=== PATIENT | male | born 1960 | race African-American/Black ===

== ENCOUNTER 2017-03-20 17:01 | Inpatient (IN) | payer MEDICAID, OTHER ==
[~2017-03-20] VITALS: Ht 172.7 cm; Wt 99.8 kg
[~2017-03-20 17:01] MED LIST: ASPI-991 PO; ATOR10TA PO; Losartan Potassium PO; METO25TA20 PO
--- NOTE | 2017-03-20 17:10 | NUR ---
[id number] C/O SOB, ANXIETY. PATIENT A/OX 3. BREATHING EVEN BUT LABORED. O2 SATURATION 100% ON ROOM AIR. VITALS STABLE. SAFETY AND COMFORT MEASURES IN PLACE. AWAITING MD ORDERS.
[2017-03-20 17:26] LABS: BASOPHILS # (AUTO) 0.1 /CMM (0.0-0.2); BASOPHILS % (AUTO) 0.3 % (0.0-2.0); EOSINOPHILS % (AUTO) 0.1 % (0.0-6.0); HEMATOCRIT 48 % (39-51); HEMOGLOBIN 15.1 g/dL (13.5-17.5); LYMPHOCYTES # (AUTO) 1.1 /CMM (0.8-4.8); LYMPHOCYTES % (AUTO) 5.9 % (20.0-44.0); MEAN CORPUSCULAR HEMOGLOBIN 32 PG (26.0-33.0); MEAN CORPUSCULAR HGB CONC 32 g/dl (31.0-36.0); MEAN CORPUSCULAR VOLUME 102 fL (80-96); MONOCYTES # (AUTO) 1.4 /CMM (0.1-1.30); MONOCYTES % (AUTO) 7.4 % (2.0-12.0); NEUTROPHILS # (AUTO) 16.1 /CMM (1.8-8.9); NEUTROPHILS % (AUTO) 86.3 % (43.0-81.0); PLATELET COUNT (AUTO) 208 /CMM (150-450); WHITE BLOOD COUNT (AUTO) 18.8 K/uL (4.3-11.0)
[2017-03-20] MEDS ORDERED: LORAZEPAM INJ 2 MG/ML VIAL IV ONE (17:30)
[2017-03-20] MEDS ORDERED: ASPIRIN 81 MG TAB.CHEW PO ONE (17:30)
[2017-03-20 17:40] LABS: INR 2.27 (0.87-1.13); PROTHROMBIN TIME 23.6 SECS (9.5-12.7)
[2017-03-20] MEDS ORDERED: ASPIRIN 81 MG TAB.CHEW ONE (17:40)
[2017-03-20 17:45] LABS: TROPONIN I 0.316 ng/mL (0.00-0.056)
[2017-03-20 17:50] LABS: CALCIUM, SERUM 9.4 mg/dL (8.5-10.1); CREATININE 3.4 mg/dL (0.6-1.3); POTASSIUM 6.1 mmol/L (3.5-5.1)
[2017-03-20] MEDS ORDERED: DEXTROSE 50%-WATER 50 ML DISP.SYRIN ONE (18:02)
--- NOTE | 2017-03-20 18:06 | NUR ---
ADMIN D50 VIA IV PER DR. GARCIA, BLOOD SUGAR 31.
--- NOTE | 2017-03-20 18:07 | NUR ---
DR. LOPEZ PAGEMacario.
--- NOTE | 2017-03-20 18:12 | NUR ---
CANCEL ATIVAN PER DR. GARCIA.
--- NOTE | 2017-03-20 18:28 | NUR ---
REPEAT BS, 120. MD INFORMED.
[2017-03-20] MEDS ORDERED: DEXTROSE 50%-WATER 50 ML DISP.SYRIN IVP ONE (18:30)
[2017-03-20] MEDS ORDERED: IV NS 0.9% 1,000 ML BAG IV ONE ×2 (18:30→19:00)
[2017-03-20 18:37] LABS: LYMPHOCYTES % (MANUAL) 6 % (16-48); MONOCYTES % (MANUAL) 8 % (0-11.0); NEUTROPHILS % (MANUAL) 86 (42-76)
[2017-03-20] MEDS ORDERED: SODIUM BICARBONATE SYR 50 MEQ/50 ML DISP.SYRIN ONE (18:42)
--- NOTE | 2017-03-20 18:45 | NUR ---
RECTAL TEMP, 94.0. INFORMED, ORDERED BEAR HUGGER FOR WARMING MEASURES.
[2017-03-20 19:00] LABS: CALCIUM, SERUM 8.6 mg/dL (8.5-10.1); CREATININE 3.8 mg/dL (0.6-1.3); POTASSIUM 5.9 mmol/L (3.5-5.1)
[2017-03-20] MEDS ORDERED: SODIUM BICARBONATE SYR 100 MEQ in IV NS 0.9% 1,000 ML IV ONE (19:00)
[2017-03-20] MEDS ORDERED: SODIUM BICARBONATE SYR 50 MEQ/50 ML DISP.SYRIN IV ONE (19:00)
--- NOTE | 2017-03-20 19:01 | NUR ---
PATIENT TAKEN TO CT VIA STRETCHER.
--- NOTE | 2017-03-20 19:09 | NUR ---
PATIENT RETURNED FROM CT IN STABLE CONDITION.
[2017-03-20 19:18] LABS: BILIRUBIN,TOTAL 4.7 mg/dL (0.2-1.0)
[2017-03-20 19:20] LABS: ALANINE AMINOTRANSFERASE 694 U/L (12-78); ALBUMIN 3.4 g/dL (3.4-5.0); ALKALINE PHOSPHATASE 124 U/L (46-116); ASPARTATE AMINOTRANSFERASE 2167 U/L (15-37); BILIRUBIN,DIRECT 3.5 mg/dL (0.0-0.2); SALICYLATE < 2.0 mg/dL (2.8-20.0); THYROID STIMULATING HORMONE 1.671 uIU/mL (0.358-3.74); TOTAL PROTEIN, SERUM 7.9 g/dL (6.4-8.2)
[2017-03-20 19:21] LABS: ACETAMINOPHEN 0 ug/ml (10-30)
--- NOTE | 2017-03-20 19:38 | NUR ---
ICU 256
--- NOTE | 2017-03-20 19:39 | NUR ---
epic called for admission- Ramesh
--- NOTE | 2017-03-20 19:40 | NUR ---
BED 256
[2017-03-20 19:41] LABS: APPEARANCE,URINE Clear (CLEAR); BILIRUBIN,URINE MODERATE (NEGATIVE); BLOOD, URINE Large Ery/uL (NEGATIVE); COLOR,URINE Yellow (YELLOW); KETONES,URINE Negative (NEGATIVE); LEUKOCYTE ESTERASE ,URINE Negative (NEGATIVE); NITRITE, URINE Negative (NEGATIVE); PH,URINE 5.5 (5.0-8.0); PROTEIN,URINE >=300 mg/dl (NEGATIVE); UGLUCOSE Negative (NEGATIVE)
[2017-03-20 19:50] LABS: CREATINE KINASE MB 24.1 ng/mL (0-3.6)
[2017-03-20 19:51] LABS: BACTERIA,URINE Rare /HPF (None Seen); SQUAMOUS EPITHELIAL CELL,UR Few /HPF (None Seen); WBC,URINE 0-2 /HPF (0-3)
[2017-03-20] MEDS ORDERED: VANCOMYCIN 1 GM in IV D5W 250 ML IV ONE (20:00)
[2017-03-20] MEDS ORDERED: CEFEPIME 1 GM in IV D5W 50 ML IV ONE (20:00)
--- NOTE | 2017-03-20 20:01 | NUR ---
report given to Delma MERINO in charge; will re-page Ramesh Knowles for admission
--- NOTE | 2017-03-20 20:01 | NUR ---
PANEL PAGED 2ND TIME.
[2017-03-20 20:05] LABS: SERUM AMMONIA 75 umol/L (11-32)
[2017-03-20 20:06] LABS: ALCOHOL, BLOOD < 3 mg/dL (0-0)
--- NOTE | 2017-03-20 20:06 | NUR ---
PATIENT TAKEN TO CT SCAN VIA STRETCHER.
--- NOTE | 2017-03-20 20:21 | NUR ---
called rt for abg
--- NOTE | 2017-03-20 20:23 | NUR ---
PATIENT RETURNED FROM CT HEAD IN STABLE CONDITION.
[2017-03-20 20:33] LABS: OSMOLALITY,URINE 480 mOS/kg (340-1090)
--- NOTE | 2017-03-20 21:09 | NUR ---
HALLIE DOLAN AND DR GARCIA AT BEDSIDE. RT CALLED FOR ABG. PT APPEARS IN MODERATE RESPIRATORY DISTRESS AND REPEATEDLY DEMANDING WATER. VSS.
[2017-03-20 21:10] LABS: CALCIUM, SERUM 9.3 mg/dL (8.5-10.1); POTASSIUM 5.8 mmol/L (3.5-5.1)
[2017-03-20 21:15] LABS: ALBUMIN 3.6 g/dL (3.4-5.0); BILIRUBIN,DIRECT 3.6 mg/dL (0.0-0.2); BILIRUBIN,TOTAL 4.9 mg/dL (0.2-1.0); TOTAL PROTEIN, SERUM 8.3 g/dL (6.4-8.2)
[2017-03-20 21:16] LABS: TROPONIN I 0.36 ng/mL (0.00-0.056)
--- NOTE | 2017-03-20 21:18 | NUR ---
PT TRANSPORTED TO ICU IN CRITICAL CONDITION VIA ACLS PROTOCOL. RT TO DRAW ABG IN ICU PER DR GARCIA AND DR DOLAN
[2017-03-20] MEDS ORDERED: IV NS 0.9% 1,000 ML IV PRN (21:34)
[2017-03-20 21:39] VITALS: BP 120/60
--- NOTE | 2017-03-20 21:50 | NUR ---
RESPIRATORY TECHNICIAN - ADMISSION NOTES - PT RECEIVED FROM ER, PT IS HOMELESS, LIVES IN TENTS, BROUGHT IN BY AMBULANCE WITH SOB AND ANXIETY. ADMITTING DX SEPSIS WITH METABOLIC ACIDOSIS. PT HAS HIGH LACTIC OF 20.2 THEN 18.7. PT IS ON 1L NS W 2 AMPS 100 MEQ BICARB AT 250 ML/HR FROM ER. PT IS AOX4, PT IS ON ROOM AIR, ABG SHOWS 02 WNL, PCO2 LOW, BICARB LOW, PH LOW. PT TOX SCREEN IS POSITIVE FOR AMPHETAMINES, CANNABINOIDS. PT IS IN NSR HR 80S, BP WNL. PT IS NOT HAVING STOMACH PAIN, BUT FEELS THE URGENCY TO DEFECATE AND IS BEARING DOWN, RECTUM IS PROTRUDING WHEN HE BEARS DOWN. PT HAS A F/C WITH MINIMAL URINE OUTPUT. SKIN IS INTACT, PT HAS A LEFT AC 18G 8CM LONG CATHETER IV AND A LEFT IJ TLC CENTRAL LINE. WILL CONTINUE TO MONITOR
[2017-03-20 22:00] VITALS: BP 161/95
[2017-03-20 22:01] VITALS: BP 161/95
[2017-03-20 22:07] LABS: INR 2.35 (0.87-1.13); PROTHROMBIN TIME 24.7 SECS (9.5-12.7)
[2017-03-20 22:30] VITALS: BP 140/90
[2017-03-20] MEDS ORDERED: MEROPENEM 1 G VIAL IV ONE (22:37)
[2017-03-20] MEDS ORDERED: ONDANSETRON HCL/PF 4 MG/2 ML VIAL ONE (22:37)
[2017-03-20 22:39] LABS: D-DIMER 10.9 mg/L(FEU (0.17-0.50)
[2017-03-20] MEDS: ONDANSETRON HCL/PF 4 MG/2 ML VIAL IVP PRN (22:40)
[2017-03-20 22:43] LABS: ABG BASE EXCESS -19.7 mmol/L; ABG OXYGEN SATURATION 97.3 % (92.0-98.5); ABG PCO2 13.9 mmHg (35.0-45.0); ABG PH 7.215 (7.350-7.450); ABG PO2 129.7 mmHg (75.0-100.0); AaDO2 3.4 mmHg; COHb 0.2 % (0.5-1.5); MetHb 0.6 % (0.0-1.5); O2Hb 96.5 % (94.0-97.0); SITE, ABG Right Brachial; VENT MODE, BG ROOM AIR
[2017-03-20] MEDS: MEROPENEM 1 G in IV NS 0.9% 100 ML IV SCH (22:43)
[2017-03-20 22:58] LABS: CREATININE 3.7 mg/dL (0.6-1.3); POTASSIUM 5.8 mmol/L (3.5-5.1)
[2017-03-20 23:00] VITALS: BP 149/95
--- NOTE | 2017-03-20 23:00 | NUR ---
DR HALLIE DOLAN AT BEDSIDE TO INSERT LIJ TLC CENTRAL LINE, CENTRAL LINE SUCCESSFULLY INSERTED, DR DOLAN WANTS CVP MONITORING, BUT CVP IS MALFUNCTIONING, WILL MONITOR INTAKE AND OUTPUT CLOSELY
[2017-03-20] MEDS: IV NS 0.9% 1,000 ML IV PRN (23:13)
[2017-03-20 23:30] VITALS: BP 142/99
[2017-03-21] VITALS (45 sets, daily range): BP systolic 123–167; BP diastolic 61–102
[2017-03-21] MEDS: IV NS 0.9% 1,000 ML IV PRN ×3 (00:13→02:34)
[2017-03-21] MEDS ORDERED: Sodium Bicarbonate 100 MEQ in IV D5W 1,000 ML IV ONE (01:00)
[2017-03-21] MEDS ORDERED: Sodium Bicarbonate 100 MEQ in IV D5W 1,000 ML IV PRN (01:00)
[2017-03-21] MEDS ORDERED: DEXTROSE 50%-WATER 50 ML DISP.SYRIN ONE (01:05)
[2017-03-21 01:19] LABS: ABG BASE EXCESS -19.4 mmol/L; ABG OXYGEN SATURATION 96.3 % (92.0-98.5); ABG PCO2 15.1 mmHg (35.0-45.0); ABG PH 7.217 (7.350-7.450); ABG PO2 108.7 mmHg (75.0-100.0); AaDO2 22.9 mmHg; COHb 0.3 % (0.5-1.5); MetHb 0.7 % (0.0-1.5); O2Hb 95.3 % (94.0-97.0); SITE, ABG Left Radial; VENT MODE, BG ROOM AIR
[2017-03-21] MEDS ORDERED: DEXTROSE 50%-WATER 50 ML DISP.SYRIN IVP ONE (01:30)
[2017-03-21] MEDS ORDERED: DEXTROSE 50%-WATER 50 ML DISP.SYRIN IV PRN (01:30)
--- NOTE | 2017-03-21 01:30 | NUR ---
PT FEELS THE NEED TO HAVE A BOWEL MOVEMENT, BUT PT IS ONLY HAVING TINY SOLID PIECES AND GREEN MUCOID BM.
--- NOTE | 2017-03-21 02:00 | NUR ---
PT HAD EPISODE OF EMESIS, LIQUID BROWN. I TRIED TO DO ORAL CARE AND USE YANKAUER TO CLEAN MOUTH, PT HAS VERY STRONG GAG REFLEX AND STARTED VOMITING MORE, APPROX 200-300 ML VOMITED. PT CLEANED, GIVEN FULL BED BATH, ALL LINENS CHANGED
[2017-03-21] MEDS ORDERED: FUROSEMIDE 20 MG/2 ML VIAL IV SCH (04:30)
[2017-03-21] MEDS ORDERED: FUROSEMIDE 20 MG/2 ML VIAL IV ONE (04:30)
[2017-03-21 04:35] LABS: HEMATOCRIT 38 % (39-51); HEMOGLOBIN 12.1 g/dL (13.5-17.5); INR 2.6 (0.87-1.13); LYMPHOCYTES # (AUTO) 1.1 /CMM (0.8-4.8); LYMPHOCYTES % (AUTO) 5.6 % (20.0-44.0); MEAN CORPUSCULAR HEMOGLOBIN 33 PG (26.0-33.0); MEAN CORPUSCULAR HGB CONC 32 g/dl (31.0-36.0); MEAN CORPUSCULAR VOLUME 101 fL (80-96); MONOCYTES # (AUTO) 1.7 /CMM (0.1-1.30); MONOCYTES % (AUTO) 8.8 % (2.0-12.0); NEUTROPHILS # (AUTO) 16.9 /CMM (1.8-8.9); NEUTROPHILS % (AUTO) 85.6 % (43.0-81.0); PLATELET COUNT (AUTO) 154 /CMM (150-450); PROTHROMBIN TIME 27.3 SECS (9.5-12.7); RDW COEFFICIENT OF VARIATION 13.9 (11.5-15.0); RED BLOOD CELL COUNT(AUTO) 3.71 MIL/uL (4.5-6.0); WHITE BLOOD COUNT (AUTO) 19.8 K/uL (4.3-11.0)
--- NOTE | 2017-03-21 04:37 | NUR ---
PT HAVING EPISODES OF WRETCHING, DR DOLAN ORDER TO PLACE AN NGT, BUT PT IS AWAKE ALERT ORIENTED X4 AND SAYS "NO, I DONT WANT ANYTHING IN MY NOSE", AWARE, PT IN NO ACUTE DISTRESS, WILL CONTINUE TO MONITOR
[2017-03-21 04:41] LABS: RETICULOCYTE COUNT 4.3 % (0.6-2.5)
[2017-03-21] MEDS ORDERED: BISACODYL SUPP (10 MG) 10 MG/SUPP.RECT SUPP.RECT RC ONE ×2 (04:41→09:00)
[2017-03-21] MEDS ORDERED: MEROPENEM 1 G VIAL IV ONE (04:42)
[2017-03-21] MEDS ORDERED: FUROSEMIDE 20 MG/2 ML VIAL ONE (04:42)
[2017-03-21] MEDS: MEROPENEM 1 G in IV NS 0.9% 100 ML IV SCH (04:44)
[2017-03-21 04:45] LABS: ABG BASE EXCESS -16.6 mmol/L; ABG PCO2 18.7 mmHg (35.0-45.0); ABG PH 7.258 (7.350-7.450); ABG PO2 150.8 mmHg (75.0-100.0); AaDO2 69.8 mmHg; COHb 0.3 % (0.5-1.5); MetHb 0.8 % (0.0-1.5); O2Hb 96.9 % (94.0-97.0); SITE, ABG Left Radial; VENT MODE, BG NASAL CANNULA
[2017-03-21 04:47] LABS: ALBUMIN 2.9 g/dL (3.4-5.0); BILIRUBIN,TOTAL 4.4 mg/dL (0.2-1.0); CALCIUM, SERUM 6.9 mg/dL (8.5-10.1); CREATININE 3.4 mg/dL (0.6-1.3); MAGNESIUM 1.7 mg/dL (1.8-2.4); PHOSPHORUS 7.5 mg/dL (2.5-4.9); POTASSIUM 5.4 mmol/L (3.5-5.1); TOTAL PROTEIN, SERUM 6.9 g/dL (6.4-8.2)
[2017-03-21 04:49] LABS: THYROID STIMULATING HORMONE 1.742 uIU/mL (0.358-3.74)
[2017-03-21] MEDS ORDERED: IV NS 0.9% 250 ML IV ONE (05:00)
--- NOTE | 2017-03-21 05:20 | NUR ---
PT AGITATED, COMPLAINING OF DIFFICULTY BREATHING, PT HAS HAD VERY MINIMAL URINE OUTPUT, AND GOTTEN A LARGE AMOUNT OF FLUID. DR HALLIE DOLAN NOTIFIED, NEW ORDERS GIVEN, WILL GIVE PT LASIX 20 MG
[2017-03-21] MEDS ORDERED: FEE PK DOSING 1 MIN EA MC ONE (07:41)
[2017-03-21 07:57] LABS: CALCIUM, SERUM 6.9 mg/dL (8.5-10.1); CREATININE 3.5 mg/dL (0.6-1.3); POTASSIUM 5.5 mmol/L (3.5-5.1)
[2017-03-21] MEDS ORDERED: HYDROMORPHONE INJ 2 MG/ML DISP.SYRIN IV PRN (08:00)
--- NOTE | 2017-03-21 08:00 | NUR ---
ICU/RN INITIAL NOTES,AM RECEIVED REPORT FROM NIGHT NURSE. PT ALERT, AWAKE, FOLLOWS COMMANDS. PT COMPLAINING OF ABDOMINAL CRAMPING AND GENERALIZED PAIN. PT ON NASAL CANULA, LABORED RESPIRATIONS NOTED, YET MAINTAINING 02 SAT >95%. PT SINUS ON TELE. ONE UNIT FFP TRANSFUSED OVERNIGHT, ONE UNIT PENDING TO BE GIVEN, WILL ADMIN SOON IT IS AVAILABLE. PIV AND LEFT IG TLC INTACT AND PATENT, NO S/S OF INFECTION OR INFILTRATION NOTED. IV FLUIDS INFUSING ORDERED. ALL NEEDS WILL BE ATTENDED TO, SAFETY MEASURES TAKEN, BED IN LOW POSITION, SIDE RIALS UP, CALL LIGHT WITHIN REACH.
[2017-03-21] MEDS: IV D5/ 0.9% NACL 1,000 ML IV PRN ×3 (08:13→20:16)
[2017-03-21] MEDS: PANTOPRAZOLE 40 MG VIAL IV SCH (08:13)
--- NOTE | 2017-03-21 10:15 | NUR ---
ICU/RN: FFP STARTED, TOLERATING WELL, NO ADVERSE REACTION NOTED. VSS. CONSENT IN CHART. WILL CONTINUE TO MONITOR AND ASSESS
--- NOTE | 2017-03-21 10:43 | NUR ---
Social service consult requested by Dr. Knowles for homelessness and drug use. Pt. is a 56 year old -Prydeinig female who was admitted to [facility] for renal failure. SAADIA and rn case manager Shelley Whittaker met with pt. bedside. Pt. is alert and oriented x 3. Pt. appears lethargic. SW is familiar with pt. from a previous admission in 2016. Pt. states he is homeless and no longer resides at a sober living. SW offered pt. longterm placement upon discharge, however pt. declined stating he needs to get his belongings that are located at [facility] in [place] upon discharge. SW informed pt. she will provide him with longterm resources along with bus tokens to get to his belongings. Pt. agreed. Pt. denies suicidal/homicidal ideations and visual/auditory hallucinations at this time. Pt. has a history of psychiatric hospitalization in the past, approximately a year ago but does not remember where he was hospitalized. Pt. denies using drugs, however his toxicology shows positive for methamphetamines, cocaine and marijuana. Pt. continues to deny using drugs when informed about his toxicology results. Pt. states he smokes marijuana and cigarettes only. Pt. does drink alcohol and his alcohol of choice is vodka. SW to inform weekend rn case manager Radha to provide pt. with bus tokens, if pt. is discharged over the weekend. No other social service needs are requested at this time. SW is available, if needed.
[2017-03-21 11:30] LABS: CALCIUM, SERUM 6.7 mg/dL (8.5-10.1); CREATININE 3.4 mg/dL (0.6-1.3); POTASSIUM 5.2 mmol/L (3.5-5.1)
[2017-03-21] MEDS: METRONIDAZOLE 500MG/ NS 100ML 500 MG in PREMIX 1 EA IV SCH ×2 (13:54→17:27)
[2017-03-21] MEDS: Calcium Gluconate 1GM/10ML 9.3 MEQ in IV D5W 250 ML IV SCH ×3 (15:10→20:10)
--- NOTE | 2017-03-21 15:47 | NUR ---
ICU/RN: PT SEEN AND ASSESSED BY VARNISHING UNIT OPERATOR. WILL CONTINUE TO FOLLOWUP.
[2017-03-21] MEDS: MEROPENEM 500 MG in IV NS 0.9% 50 ML IV SCH (16:08)
[2017-03-21 16:11] LABS: CALCIUM, SERUM 7.2 mg/dL (8.5-10.1); CREATININE 3.6 mg/dL (0.6-1.3); POTASSIUM 4.7 mmol/L (3.5-5.1)
[2017-03-21 16:56] LABS: APPEARANCE,URINE CLOUDY (CLEAR); BILIRUBIN,URINE NEGATIVE (NEGATIVE); BLOOD, URINE 3+ Ery/uL (NEGATIVE); COLOR,URINE YELLOW (YELLOW); KETONES,URINE TRACE (NEGATIVE); LEUKOCYTE ESTERASE ,URINE NEGATIVE (NEGATIVE); NITRITE, URINE NEGATIVE (NEGATIVE); PROTEIN,URINE 2+ mg/dl (NEGATIVE); UGLUCOSE NEGATIVE (NEGATIVE)
[2017-03-21 16:58] LABS: BACTERIA,URINE Moderate /HPF (None Seen); RBC,URINE TOO NUMEROUS TO COUN /HPF (0-2); SQUAMOUS EPITHELIAL CELL,UR Moderate /HPF (None Seen)
[2017-03-21 17:37] LABS: EOSINOPHIL,URINE None Seen
[2017-03-21 18:23] LABS: CREATININE, URINE 59.1 MG/DL (30.0-125.0)
[2017-03-21] MEDS: VANCOMYCIN 0.75 GM in IV D5W 250 ML IV SCH (18:39)
--- NOTE | 2017-03-21 19:40 | NUR ---
ICU/RN ENDING NOTES,AM REPORT ENDORSED TO NIGHT NURSE FOR CONTINUATION OF CARE. ALL NEEDS MET. PT ON NASAL CANULA, NO DISTRESS. VSS. ONE UNIT FFP TRANSFUSED. URINE OUTPUT NOTED, MINDA. SAFETY MEASURES TAKEN, BED IN LOW POSITION, SIDE RAILS UP, CALL LIGHT WITHIN REACH.
--- NOTE | 2017-03-21 20:00 | NUR ---
MARKETING CONTENT COORDINATOR: PT'S NASAL CANNULA WAS OFF WT O2 SAT AT 94%. PLACED BACK ON 3L AND WT 02 SAT AT 96% AND ABOVE. PT APPEARS DROWSY AND FATIGUED. ABLE TO FOLLOW COMMANDS, MAKE NEEDS KNOWN WT CONFUSION. NO C/O PAIN OR EVIDENCE OF DISCOMFORT. SR ON FIREFIGHTER TYPE ONE. AFEBRILE WT BP WNL. LIJ TLC INFUSING IVF AND CALCIUM GLUCONATE WT NO S/S OF COMPLICATIONS. F/C PATENT AND INTACT DRAINING TEA COLORED URINE TO GRAVITY. HOB ELEVATED AT 35 DEGREES. SAFETY PRECAUTION NOTED. WILL CONTINUE TO MONITOR.
[2017-03-21 20:31] LABS: CALCIUM, SERUM 7.7 mg/dL (8.5-10.1); CREATININE 3.7 mg/dL (0.6-1.3); POTASSIUM 4.3 mmol/L (3.5-5.1)
--- NOTE | 2017-03-21 22:35 | NUR ---
CENTRAL PROCESSING TECHNICIAN: LISA DONE WT RESULT OF 125. PT REMAINS DROWSY. ABLE TO WAKE UP, VERBALLY RESPONSIVE, ABLE TO FOLLOW COMMANDS WT CONFUSION. NO ACUTE DISTRESS. WILL CONTINUE TO MONITOR.
[2017-03-22] VITALS (29 sets, daily range): BP systolic 130–154; BP diastolic 84–111
--- NOTE | 2017-03-22 02:00 | NUR ---
SPREADER OPERATOR: NO BRYSON SINCE BEGINNING OF SHIFT. REMAINED LETHARGIC AND DROWSY. ABLE TO WAKE UP AND VERBALLY RESPONSIVE. ICE CHIPS GIVEN REQUESTED WT NO S/S OF ASPIRATION. NO C/O ABDOMINAL PAIN. BOWEL SOUNDS PRESENT IN FOUR QUADRANTS WT PRESENCE OF GAS. WILL CONTINUE TO MONITOR.
[2017-03-22] MEDS: IV D5/ 0.9% NACL 1,000 ML IV PRN ×2 (03:42→10:34)
[2017-03-22] MEDS ORDERED: IV NS 0.9% 500 ML BAG IV PRN (04:00)
[2017-03-22] MEDS ORDERED: IV NS 0.9% 500 ML BAG IV ONE (04:00)
[2017-03-22] MEDS: MEROPENEM 500 MG in IV NS 0.9% 50 ML IV SCH ×2 (04:36→16:09)
[2017-03-22 04:49] LABS: BASOPHILS # (AUTO) 0.2 /CMM (0.0-0.2); BASOPHILS % (AUTO) 1.7 % (0.0-2.0); EOSINOPHILS % (AUTO) 0.1 % (0.0-6.0); HEMATOCRIT 37 % (39-51); HEMOGLOBIN 11.9 g/dL (13.5-17.5); LYMPHOCYTES % (AUTO) 6.9 % (20.0-44.0); MEAN CORPUSCULAR HEMOGLOBIN 32 PG (26.0-33.0); MEAN CORPUSCULAR HGB CONC 33 g/dl (31.0-36.0); MEAN CORPUSCULAR VOLUME 99 fL (80-96); MONOCYTES # (AUTO) 1.6 /CMM (0.1-1.30); MONOCYTES % (AUTO) 11.2 % (2.0-12.0); NEUTROPHILS # (AUTO) 11.2 /CMM (1.8-8.9); NEUTROPHILS % (AUTO) 80.1 % (43.0-81.0); PLATELET COUNT (AUTO) 120 /CMM (150-450); RDW COEFFICIENT OF VARIATION 13.4 (11.5-15.0); RED BLOOD CELL COUNT(AUTO) 3.69 MIL/uL (4.5-6.0)
[2017-03-22 04:59] LABS: APPEARANCE,URINE CLEAR (CLEAR); BILIRUBIN,URINE NEGATIVE (NEGATIVE); BLOOD, URINE 2+ Ery/uL (NEGATIVE); KETONES,URINE NEGATIVE (NEGATIVE); LEUKOCYTE ESTERASE ,URINE NEGATIVE (NEGATIVE); NITRITE, URINE NEGATIVE (NEGATIVE); PROTEIN,URINE 2+ mg/dl (NEGATIVE); UGLUCOSE NEGATIVE (NEGATIVE)
[2017-03-22 05:00] LABS: COLOR,URINE DARK YELLOW (YELLOW)
[2017-03-22 05:05] LABS: ALBUMIN 2.8 g/dL (3.4-5.0); BILIRUBIN,TOTAL 2.6 mg/dL (0.2-1.0); CALCIUM, SERUM 7.7 mg/dL (8.5-10.1); CREATININE 3.5 mg/dL (0.6-1.3); MAGNESIUM 1.8 mg/dL (1.8-2.4); PHOSPHORUS 4.2 mg/dL (2.5-4.9); POTASSIUM 4.1 mmol/L (3.5-5.1); TOTAL PROTEIN, SERUM 6.8 g/dL (6.4-8.2)
[2017-03-22 05:05] LABS: BACTERIA,URINE Rare /HPF (None Seen); SQUAMOUS EPITHELIAL CELL,UR Few /HPF (None Seen)
[2017-03-22 05:16] LABS: EOSINOPHIL,URINE None Seen
[2017-03-22 05:34] LABS: CREATINE KINASE MB 14.6 ng/mL (0-3.6)
--- NOTE | 2017-03-22 06:20 | NUR ---
GOLF BALL COVER TREATER: PT VERBALIZING THAT HE'S HUNGRY AND WANTS TO EAT BREAKFAST. PT TEACHING DONE THAT HE REMAINS NPO STATUS UNTIL FURTHER EVALUATION BY MD AND VERBALIZED UNDERSTANDING. GIVEN SMALL AMT. OF ICE CHIPS. ON R/A WT NO ACUTE DISTRESS. NO C/O PAIN OR ABDOMINAL DISCOMFORT. VS WITHIN HIS BASELINE. SAFETY PRECAUTION NOTED. CALL LIGHT KEPT WITHIN EASY REACH.
--- NOTE | 2017-03-22 07:30 | NUR ---
ICU/RN: Pt received in bed, alert to self and place, lethargic. Follows commands. C/O thirst and hunger, oral care rendered, provided with ice chips and educated on POC and NPO status. Needs reinforcement. L IJ TLC patent, good blood return, flushed. Unable to obtain CVP reading despite repeated calibration per noc shift. Will F/U with primary regarding use. FC draining tea-colored urine well to gravity. Safety measures in place, will cont to monitor pt.
[2017-03-22] MEDS: PANTOPRAZOLE 40 MG VIAL IV SCH (08:01)
[2017-03-22 08:08] LABS: IMMUNOGLOBULIN A, SERUM 269 mg/dL (90-386); IMMUNOGLOBULIN G, SERUM 2026 mg/dL (700-1600); IMMUNOGLOBULIN M, SERUM 177 mg/dL (20-172)
[2017-03-22 08:36] LABS: CALCIUM, SERUM 7.4 mg/dL (8.5-10.1); CREATININE 3.2 mg/dL (0.6-1.3); MAGNESIUM 1.7 mg/dL (1.8-2.4); PHOSPHORUS 4.1 mg/dL (2.5-4.9); POTASSIUM 4.1 mmol/L (3.5-5.1)
[2017-03-22 08:39] LABS: CREATININE, URINE 85.9 MG/DL (30.0-125.0)
[2017-03-22 08:45] LABS: URINE TOTAL PROTEIN 113.7 mg/dL (0-11.9)
[2017-03-22 09:43] LABS: ABG BASE EXCESS -4.7 mmol/L; ABG OXYGEN SATURATION 93.6 % (92.0-98.5); ABG PO2 74.9 mmHg (75.0-100.0); AaDO2 43.7 mmHg; COHb 0.7 % (0.5-1.5); SITE, ABG Right Radial; VENT MODE, BG ROOM AIR
[2017-03-22 12:17] LABS: CALCIUM, SERUM 7.4 mg/dL (8.5-10.1); CREATININE 3.2 mg/dL (0.6-1.3)
--- NOTE | 2017-03-22 12:23 | NUR ---
ICU/RN: DR DWYER AT THE BEDSIDE, UPDATED ON PT STATUS, DISCUSSED VOLUME STATUS AND IVF INTAKE. PT TACHYPNEIC AND STATES "IM HUNGRY." AWAITING MD ORDERS.
[2017-03-22] MEDS: Magnesium 1GM/D5W 100ML PREMIX PIGGYBACK IV SCH ×2 (12:50→13:53)
--- NOTE | 2017-03-22 15:00 | NUR ---
ICU/RN: DISCUSSED PT STATUS WITH HILDA PHAM NP. INFORMED OF RENAL, RESP AND GI STATUS. PT DENIES ABD PAIN. NEPHRO WISHES TO HOLD OFF IV CONTRAST FOR CT ABD. PER JIG BORING MACHINE SET UP OPERATOR, CONT TO MONITOR PT IN ICU, DC CVP MONITORING, ENCOURAGE PO INTAKE.
--- NOTE | 2017-03-22 15:30 | NUR ---
ICU/RN: BED BATH, HYGIENIC CARE RENDERED. TOLERATED WELL. NOTED WITH SMEAR OF GREENISH MUCOID STOOL. UNABLE TO COLLECT SAMPLE DUE TO SMALL AMOUNT. CVP MONITORING DC'D PER ORDER. EDUCATED PT. TOLERATED CLEAR LIQ DIET. WILL CONT TO MONITOR PT
[2017-03-22] MEDS: Z GUARD REMEDY 2 OZ OINT TP PRN (16:09)
[2017-03-22] MEDS: VANCOMYCIN 0.75 GM in IV D5W 250 ML IV SCH (17:20)
--- NOTE | 2017-03-22 18:30 | NUR ---
ICU/RN: TOLERATED DINNER, ATE 75%, DENIES ABD PAIN, N/V. IVF INFUSING WELL THROUGH L IJ TLC. A&OX3, LETHARGIC. BREATHING EVEN AND UNLABORED.
--- NOTE | 2017-03-22 19:10 | NUR ---
ICU/RN: PT IN STABLE CONDITION, NO DISTRESS NOTED, BREATHING EVEN AND UNLABORED ON RA. IVF INFUSING WELL THROUGH L IJ TLC. FC DRAINING WELL TO GRAVITY. LETHARGIC, FOLLOWS COMMANDS. CARE ENDORSED TO PM RN FOR BRYSON.
--- NOTE | 2017-03-22 19:35 | NUR ---
TELESALES TEAM LEADER RCD PT W/DX SEPSIS; PT IS ALERT ABLE TO MAKE NEEDS KNOWN. NSR ON MONITOR. ON ROOM AIR WITH CLEAR LUNG SOUNDS. LIJT LC W/D5NS @ 75 ML/HR.
[2017-03-23] VITALS (27 sets, daily range): BP systolic 125–159; BP diastolic 55–123
--- NOTE | 2017-03-23 04:00 | NUR ---
BRAZER RESISTANCE ORAL CARE RENDERED COMPLETE BED BATH GIVEN. PT TOLERATED WELL. PY ASKING FOR FOOD HOWEVER PT REMAINS ON CLEAR LIQUID DIET.
[2017-03-23 04:45] LABS: BASOPHILS % (AUTO) 0.1 % (0.0-2.0); EOSINOPHILS % (AUTO) 0.3 % (0.0-6.0); HEMATOCRIT 39 % (39-51); HEMOGLOBIN 12.7 g/dL (13.5-17.5); LYMPHOCYTES # (AUTO) 0.9 /CMM (0.8-4.8); LYMPHOCYTES % (AUTO) 7.6 % (20.0-44.0); MEAN CORPUSCULAR HEMOGLOBIN 33 PG (26.0-33.0); MEAN CORPUSCULAR HGB CONC 33 g/dl (31.0-36.0); MEAN CORPUSCULAR VOLUME 100 fL (80-96); MONOCYTES # (AUTO) 1.4 /CMM (0.1-1.30); MONOCYTES % (AUTO) 11.6 % (2.0-12.0); NEUTROPHILS # (AUTO) 9.9 /CMM (1.8-8.9); NEUTROPHILS % (AUTO) 80.4 % (43.0-81.0); PLATELET COUNT (AUTO) 126 /CMM (150-450); RDW COEFFICIENT OF VARIATION 13.7 (11.5-15.0); RED BLOOD CELL COUNT(AUTO) 3.85 MIL/uL (4.5-6.0); WHITE BLOOD COUNT (AUTO) 12.4 K/uL (4.3-11.0)
[2017-03-23 05:04] LABS: CALCIUM, SERUM 7.8 mg/dL (8.5-10.1); CREATININE 2.6 mg/dL (0.6-1.3); PHOSPHORUS 3.4 mg/dL (2.5-4.9)
[2017-03-23] MEDS: MEROPENEM 500 MG in IV NS 0.9% 50 ML IV SCH (05:25)
--- NOTE | 2017-03-23 06:47 | NUR ---
WILBER DURAND . Addendum: 03/23/17 at 0648 by JUANJO BEATTY RN 03/22/17 1950
--- NOTE | 2017-03-23 07:10 | NUR ---
FARM OPERATOR INITIAL NOTES: REC'D PT ASLEEP ON BED, EASILY AWAKEN, A/O X2. ON ROOM AIR, DENIES SOB, TACHYPNEIC AT TIMES RR 24. ON TELEMONITOR, SR W/ HR 86 BPM. HAS 2 IV ACCESS: L IJ TLC, PL W/ D5NS X 75 CC/HR INFUSING WELL AND L AC G18, SL, FLUSHING WELL - BOT PATENT & INTACT W/ NO S/SX OF INFECTION/INFILTRATION NOTED. HAS FC DRAINING TO ADEQUATE URINE OUTPUT. NOTED GENERALIZED WEAKNESS, VERBALIZING THAT HE IS HUNGRY. PROVIDED COMFORT & SAFETY MEASURES. BED KEPT LOW & IN LOCKED POS. CALL LIGHT PLACED W/IN REACH. WILL CONTINUE TO MONITOR AND ASSESS PT'S NEEDS.
[2017-03-23] MEDS: PANTOPRAZOLE 40 MG VIAL IV SCH (08:03)
--- NOTE | 2017-03-23 10:20 | NUR ---
RN NOTES: HILDA REFRACTORY SPECIALIST MADE AWARE THAT PT VERBALIZING HUNGER AND WANTED TO ADVANCE HIS CURRENT DIET. PER HILDA SHE WILL MAKE HER ROUNDS TODAY. ORDERED PT EVAL PER GONZALEZ.
--- NOTE | 2017-03-23 11:39 | NUR ---
RN NOTES: PT SEEN & EXAMINED BY GONZALEZ STEVENS W/ ORDERS MADE & CARRIED OUT. ASA TO DC DUE TO HIGH PT/INR.
[2017-03-23 12:08] LABS: CALCIUM, SERUM 7.8 mg/dL (8.5-10.1); CREATININE 2.4 mg/dL (0.6-1.3); POTASSIUM 3.8 mmol/L (3.5-5.1)
[2017-03-23] MEDS: ATORVASTATIN 10 MG TABLET PO SCH (12:49)
[2017-03-23] MEDS: LOSARTAN POTASSIUM 50 MG TABLET PO SCH (12:49)
[2017-03-23] MEDS: AMLODIPINE BESYLATE 5 MG TABLET PO SCH (12:50)
[2017-03-23] MEDS: Z GUARD REMEDY 2 OZ OINT TP PRN (12:50)
[2017-03-23] MEDS: IV D5/ 0.9% NACL 1,000 ML IV PRN ×2 (14:09)
--- NOTE | 2017-03-23 16:00 | NUR ---
RN NOTES: T 100.2'F. HILDA MADE AWARE W/ ORDERS TO START TYLENOL 650 MG PO Q6H FOR FEVER. DIAL MARKER JUDEAN ALSO AWARE THAT PT TEMP TRENDING UP. BLOOD CULTURES ALREADY ORDERED.
[2017-03-23] MEDS: MEROPENEM 1 G in IV NS 0.9% 100 ML IV SCH (16:20)
[2017-03-23] MEDS: METOPROLOL TARTRATE 25 MG TABLET PO SCH (16:20)
[2017-03-23] MEDS: ACETAMINOPHEN 325 MG TABLET PO PRN (16:22)
[2017-03-23] MEDS: VANCOMYCIN 0.75 GM in IV D5W 250 ML IV SCH (18:07)
--- NOTE | 2017-03-23 18:16 | NUR ---
RN NOTES: ERICH STEVENS NP OKAY TO SHIFT IVF TO NS X 75 CC/HR.
[2017-03-23] MEDS ORDERED: IV NS 0.9% 1,000 ML IV PRN (18:30)
[2017-03-23] MEDS ORDERED: IV NS 0.9% 1,000 ML BAG IV PRN (18:30)
--- NOTE | 2017-03-23 18:40 | NUR ---
RN NOTES PATIENT TRANSFER FROM ICU TO ROOM 311 BED 2 TELE ON TELE MONITOR ON, SR/HR-80, PATIENT 56Y/OLD, REDIRECTABLE, PATIENT ON IV LEFT IJ CENTRAL LINE WITH TREE LUMEN RUNNING NS 75 ML/HE, F/C DRAIN LIGHT YELLOW OUTPUT, SKIN INTACT, V/S TAKEN BP - 159/ 96, P-93, O2-98 ROOM AIR, T-98.9, R-20. PATIENT REFUSED PAIN AT THIS TIME. NEEDS ATTENDED AND ANTICIPATED. CALL LIGHT WITHIN TO REACH, SAFETY PRECAUTION MAINTAINED ALL THE TIME. CONTINUED MONITORING.
--- NOTE | 2017-03-23 18:41 | NUR ---
WATERPROOF COATING MACHINE TENDER CLOSING NOTES: PT LATEST TEMP 99.9'F. PT TOLERATED ROOM AIR, SATING 100%, STILL TACHYPNEIC AT TIMES. ON TELEMONITOR, STILL SR. 2 IV ACCESS: L IJ TLC, PL W/ NS X 75 CC/HR INFUSING WELL AND L AC G18, SL, BOTH KEPT PATENT & INTACT W/ NO S/SX OF INFECTION/INFILTRATION NOTED. FC KEPT PATENT & INTACT. DIET TOLERATED WELL. KEPT WELL RESTED. NEEDS ATTENDED. BED KEPT LOW & IN LOCKED POS. CALL LIGHT PLACED W/IN REACH. REPORT GIVEN TO DUANE FOR BRYSON. FOR TRANSFER TO ROOM 311 ORDERED. PT TRANSFERRED VIA BED VIA ACLS PROTOCOL ACCOMPANIED BY 2 WATERPROOF COATING MACHINE TENDER. PT LEFT ICU IN STABLE CONDITION, NOT IN ANY DISTRESS.
--- NOTE | 2017-03-23 19:15 | NUR ---
RN NOTES/ PATIENT STABLE AT THIS TIME NO ACUTE , NO RESPIRATORY DISTRESS, IV RUNNING LEFT IJ AREA INTACT, ASSIST TURN AND REPOSITION Q 2 HR, DVT PUMP ON, CALL LIGHT WITHIN TO REACH, SAFETY PRECAUTION MAINTAINED ALL THE TIME. ENDORSED ONCOMING NURSE FOR CONTINUATION OF CARE.
--- NOTE | 2017-03-23 19:40 | NUR ---
RN NOTE; RECEIVED PT IN BED AWAKE AND ALERT, OX1. BREATHING EVENLY. NO SOB./ NAD. DENIED ANY PAIN OR DISCOMFORT. NO CP. SR ON TELE MONITOR, IV SITES INTACT AND PATENT. NEEDS ATTENDED . CALL LIGHT WITHIN REACH, WILL CONT TO MONITOR .
[2017-03-24] VITALS (7 sets, daily range): BP systolic 115–156; BP diastolic 78–100
[2017-03-24] MEDS: MEROPENEM 1 G in IV NS 0.9% 100 ML IV SCH (04:55)
--- NOTE | 2017-03-24 06:12 | NUR ---
RN NOTE; PT IN BED AWAKE AND RESPONSIVE. NO ACUTE EVENT DURING THE NIGHT. ON ONGOING IVF HYDRATION AND IV ABX. AFEBRILE. NO C/O PAIN OR DISCOMFORT. HEAR MONITOR IN PLACE READING SR. F/C IN PLACE DRAINING CLEAR YELLOW . NEEDS ATTENDED. CALL LIGHT WITHIN REACH. WILL CONT TO MONITOR AND WILL ENDORSE TO AM SHIFT FOR BRYSON.
--- NOTE | 2017-03-24 07:15 | NUR ---
RN OPENING NOTES RECEIVED PT. IN BED A&OX3. BREATHING UNLABORED AND EVENLY ON ROOM AIR. NO S/S OF ACUTE DISTRESS. IV FLUIDS RUNNING AT LEFT INTRAJUGULAR CENTRAL LINE SITE. BED IS IN LOWEST, AND LOCKED POSITION. 2 SIDE RAILS UP, AND INSTRUCTED PT. TO USE CALL LIGHT FOR ASSISTANCE. ALL NEEDS ATTENDED TO. WILL CONTINUE TO ASSESS AND MONITOR.
--- NOTE | 2017-03-24 07:16 | NUR ---
RN NOTES PT. IS ON TELE MONITOR READING SINUS RHYTHM AT 87 BPM.
[2017-03-24 07:24] LABS: BASOPHILS # (AUTO) 0.1 /CMM (0.0-0.2); BASOPHILS % (AUTO) 0.8 % (0.0-2.0); EOSINOPHILS # (AUTO) 0.1 /CMM (0.0-0.7); EOSINOPHILS % (AUTO) 1.1 % (0.0-6.0); HEMATOCRIT 39 % (39-51); LYMPHOCYTES # (AUTO) 1.8 /CMM (0.8-4.8); LYMPHOCYTES % (AUTO) 14.3 % (20.0-44.0); MEAN CORPUSCULAR HEMOGLOBIN 33 PG (26.0-33.0); MEAN CORPUSCULAR HGB CONC 33 g/dl (31.0-36.0); MEAN CORPUSCULAR VOLUME 100 fL (80-96); MONOCYTES # (AUTO) 1.9 /CMM (0.1-1.30); MONOCYTES % (AUTO) 14.7 % (2.0-12.0); NEUTROPHILS # (AUTO) 8.8 /CMM (1.8-8.9); NEUTROPHILS % (AUTO) 69.1 % (43.0-81.0); PLATELET COUNT (AUTO) 129 /CMM (150-450); RED BLOOD CELL COUNT(AUTO) 3.96 MIL/uL (4.5-6.0); WHITE BLOOD COUNT (AUTO) 12.8 K/uL (4.3-11.0)
--- NOTE | 2017-03-24 07:24 | NUR ---
HERNANDEZ CATHETER CLEAR AND YELLOW URINE, 50 CC OUTPUT.
[2017-03-24 07:35] LABS: CREATININE 1.9 mg/dL (0.6-1.3); MAGNESIUM 1.9 mg/dL (1.8-2.4); PHOSPHORUS 2.5 mg/dL (2.5-4.9); POTASSIUM 3.9 mmol/L (3.5-5.1)
[2017-03-24] MEDS ORDERED: ASPIRIN EC 81 MG TABLET.DR PO SCH (09:00)
[2017-03-24] MEDS: PANTOPRAZOLE 40 MG VIAL IV SCH (09:35)
[2017-03-24] MEDS: AMLODIPINE BESYLATE 5 MG TABLET PO SCH (09:36)
[2017-03-24] MEDS: ATORVASTATIN 10 MG TABLET PO SCH (09:37)
[2017-03-24] MEDS: METOPROLOL TARTRATE 25 MG TABLET PO SCH ×2 (09:37→17:16)
[2017-03-24] MEDS: LOSARTAN POTASSIUM 50 MG TABLET PO SCH (09:37)
--- NOTE | 2017-03-24 10:09 | NUR ---
PER GUSSET EDGER OKAY TO DISCONTINUE L I J CENTRAL LINE.
--- NOTE | 2017-03-24 10:19 | NUR ---
PER CLOTH REELER JEANNIE TO DC HERNANDEZ CATHETER.
[2017-03-24] MEDS ORDERED: LACTULOSE 10 G/15 ML UDC (PYXIS) PO PRN (10:30)
--- NOTE | 2017-03-24 10:40 | NUR ---
CENTRAL CATHETER WAS REMOVED FROM L I J WITHOUT COMPLICATIONS.
--- NOTE | 2017-03-24 10:45 | NUR ---
HERNANDEZ CATHETER REMOVED WITHOUT COMPLICATIONS. URINE WAS CLEAR AND YELLOW 250 CC OUTPUT TOTAL.
[2017-03-24 11:14] LABS: *SPE ALBUMIN 3.1 g/dL (2.9-4.4); *SPE ALPHA-1-GLOBULIN 0.2 g/dL (0.0-0.4); *SPE ALPHA-2-GLOBULIN 0.5 g/dL (0.4-1.0); *SPE BETA GLOBULIN 0.7 g/dL (0.7-1.3); *SPE GLOBULIN, TOTAL 3.2 g/dL (2.2-3.9); *SPE M-SPIKE Not Observed g/dL (Not Observed); *SPEGAMMA GLOBULIN 1.8 g/dL (0.4-1.8)
[2017-03-24 11:14] LABS: *ANCANTIMYELOPEROXIDASE (MPO) <9.0 U/mL (0.0-9.0); *ANCANTIPROTEINASE 3 (PR-3) AB <3.5 U/mL (0.0-3.5)
--- NOTE | 2017-03-24 11:17 | NUR ---
SAADIA met with pt. again to discuss discharge plan. Pt. states he will contact his brother Ruben Chen to inquire where he is going to go. Pt. declined usp placement again. SW to follow up with pt. again once pt. has spoken to his brother.
[2017-03-24 11:23] LABS: BAND % (MANUAL) 2 % (0.0-5.0); EOSINOPHILS % (MANUAL) 2 % (0-4); LYMPHOCYTES % (MANUAL) 14 % (16-48); MONOCYTES % (MANUAL) 11 % (0-11.0); NEUTROPHILS % (MANUAL) 71 (42-76)
[2017-03-24] MEDS: ALBUTEROL FS 2.5 MG/0.5 ML VIAL.NEB NEB SCH ×3 (11:30→19:38)
[2017-03-24] MEDS: IPRATROPIUM NEB FS 0.5 MG/2.5 ML AMPUL.NEB NEB SCH ×3 (11:30→19:38)
[2017-03-24] MEDS ORDERED: BUMETANIDE INJ 2 MG in IV NS 0.9% 32 ML IV ONE (11:30)
[2017-03-24] MEDS: ACETYLCYSTEINE 10% SOLN 400 MG/4 ML VIAL NEB SCH ×3 (11:30→23:30)
--- NOTE | 2017-03-24 11:47 | NUR ---
[facility] MICROBIOLOGY LAB PT. TEST POSITIVE FOR C-DIFF. CAFETERIA COOK AWARE.
--- NOTE | 2017-03-24 11:48 | NUR ---
RN NOTES PT. IS ON CONTACT ISOLATION NOW AND WILL BE MOVED TO ROOM 329.
[2017-03-24] MEDS: methylPREDNISolone SOD SUCC 40 MG/ML VIAL IV SCH ×2 (13:01→17:59)
[2017-03-24 14:19] LABS: *ANCA ATYPICAL p-ANCA <1:20 titer (Neg:<1:20); *ANCA CYTOPLASMIC (C-ANCA) <1:20 titer (Neg:<1:20); *ANCA PERINUCLEAR (P-ANCA) <1:20 titer (Neg:<1:20)
[2017-03-24] MEDS: METRONIDAZOLE 500MG/ NS 100ML 500 MG in PREMIX 1 EA IV SCH ×2 (15:42→21:42)
[2017-03-24] MEDS: CEFEPIME 1 GM in IV D5W 50 ML IV SCH (16:55)
[2017-03-24] MEDS: VANCOMYCIN HCL 125 MG/2.5 ML ORAL.SUSP PO SCH ×2 (18:03→23:47)
--- NOTE | 2017-03-24 19:01 | NUR ---
RN CLOSING NOTES PT. IN BED A&OX4. TELE MONITOR READING SINUS RHYTHM 86 BPM. BREATHING UNLABORED AND EVENLY ON ROOM AIR. NO S/S OF ACUTE DISTRESS. IV ACCESS 9JON LEFT ANTECUBITAL IV SITE. BED IS IN LOWEST, AND LOCKED POSITION. 2 SIDE RAILS UP, AND INSTRUCTED PT. TO USE CALL LIGHT WITHIN REACH. ALL NEEDS ATTENDED TO. WILL ENDORSE REPORT TO NURSE. Addendum: 03/24/17 at 1905 by FANNIE AGOSTO RN ERROR CONT. CLOSING NOTE: IV ACCESS SITE ON LEFT ANTECUBITAL SITE INTACT AND PATENT.
--- NOTE | 2017-03-24 19:30 | NUR ---
RN OPENING NOTES PATIENT IS IN BED, ALERT AND ORIENTED X4. VS STABLE. TELE MONITOR READING SINUS RHYTHM 83 BPM. RESPIRATIONS EVEN AND UNLABORED. IV ACCESS ON LEFT AC PATENT AND INTACT. FLUSHING WELL. BED IS IN LOW AND LOCKED POSITION. SIDE RAILS X2. CALL LIGHT WITHIN EASY REACH. CONTINUE TO MONITOR.
[2017-03-25] VITALS (7 sets, daily range): BP systolic 130–152; BP diastolic 78–102
[2017-03-25] MEDS: METRONIDAZOLE 500MG/ NS 100ML 500 MG in PREMIX 1 EA IV SCH ×3 (04:44→22:23)
--- NOTE | 2017-03-25 05:15 | NUR ---
RN NOTES PATIENT REFUSED DVT PUMP. CONTINUE TO MONITOR.
[2017-03-25] MEDS: VANCOMYCIN HCL 125 MG/2.5 ML ORAL.SUSP PO SCH ×3 (05:22→17:13)
--- NOTE | 2017-03-25 07:30 | NUR ---
MS/RN Patient received Patient received form night nurse. nuclear medicine tech at bedside for morning blood draw, per patient no pain at this time. Call light within reach, bed in low setting, brakes locked. Will continue to monitor and ensure safety.
--- NOTE | 2017-03-25 07:30 | NUR ---
RN CLOSING NOTES PATIENT IS SLEEPING IN THE BED, EASILY AROUSABLE. VS STABLE. NO C/O PAIN AT THIS TIME. TELE MONITOR READING SINUS RHYTHM 83 BPM. RESPIRATIONS EVEN AND UNLABORED. IV ACCESS ON LEFT AC PATENT AND INTACT. FLUSHING WELL. ALL MEDICATIONS GIVEN PER MD ORDER. BED IS IN LOW AND LOCKED POSITION. SIDE RAILS X2. WILL ENDORSE TO RN DAY SHIFT FOR CONTINUITY OF CARE.
[2017-03-25] MEDS: ALBUTEROL FS 2.5 MG/0.5 ML VIAL.NEB NEB SCH ×4 (07:35→19:59)
[2017-03-25] MEDS: ACETYLCYSTEINE 10% SOLN 400 MG/4 ML VIAL NEB SCH ×2 (07:35→15:05)
[2017-03-25] MEDS: IPRATROPIUM NEB FS 0.5 MG/2.5 ML AMPUL.NEB NEB SCH ×4 (07:35→20:00)
[2017-03-25] MEDS: methylPREDNISolone SOD SUCC 40 MG/ML VIAL IV SCH ×2 (08:12→12:58)
[2017-03-25] MEDS: PANTOPRAZOLE 40 MG VIAL IV SCH (08:12)
[2017-03-25] MEDS: LOSARTAN POTASSIUM 50 MG TABLET PO SCH (08:13)
[2017-03-25] MEDS: AMLODIPINE BESYLATE 5 MG TABLET PO SCH (08:13)
[2017-03-25] MEDS: METOPROLOL TARTRATE 25 MG TABLET PO SCH ×3 (08:13→17:13)
--- NOTE | 2017-03-25 08:15 | NUR ---
MS/RN Medications Morning medications administered as ordered.
--- NOTE | 2017-03-25 09:45 | NUR ---
MS/RN S/B Dr Hein Seen by Dr Hein - no new orders, patient is cleared from cadiology point of view if colonoscopy needed.
--- NOTE | 2017-03-25 11:51 | NUR ---
MS/automotive technician Tele monitoring discontinued.
--- NOTE | 2017-03-25 12:53 | NUR ---
MS/RN S/B Dr Elena Seen by Dr Elena - urine to be collected, Patient instructed, cup left at bedside.
[2017-03-25 13:20] LABS: PTH, INTACT 365 pg/mL (15-65)
[2017-03-25] MEDS: LACTOBACILLUS RHAMNOSUS GG 1 EACH CAP.SPRINK PO SCH ×2 (13:30→17:12)
[2017-03-25] MEDS ORDERED: HYDROCODONE/APAP 10/325MG 1 EA TABLET PO PRN (13:30)
--- NOTE | 2017-03-25 14:27 | NUR ---
MS/RN Refusing medication Refusing for IVAB and oral medication. Educated as to the importance of receiving all medications ordered, but continues to refuse.
[2017-03-25] MEDS: CEFEPIME 1 GM in IV D5W 50 ML IV SCH (15:47)
--- NOTE | 2017-03-25 16:31 | NUR ---
MS/RN Infiltrated IV Heplock infiltrated, unable to reinsert new line. Dr Ortega called for order for midline. Patient will require 14 days of IVAB upon discharge.
--- NOTE | 2017-03-25 19:10 | NUR ---
MS/RN OPENING NOTES PT RECEIVED RESTING IN BED, EXPERIENCING SOME HYPERVENTILATION AND ANXIETY. ABLE TO REDIRECT AND PROVIDE SUPPORT. PT CALM AND COOPERATIVE. ON ROOM AIR, O2 SAT 99%. A/OX2-3. JOSEPH MIDLINE PATENT AND INTACT. BED IN LOW/LOCKED POSITION WITH CALL LIGHT IN REACH. SIDE RAILS UPX2 AND BED ALARM ON FOR SAFETY. PT AWARE OF TRANSFER TO [facility]. WILL TRANSFER PT WITH CHART AND BELONGINGS.
[2017-03-25 23:58] LABS: HEMATOCRIT 47 % (39-51); HEMOGLOBIN 14.7 g/dL (13.5-17.5); LYMPHOCYTES # (AUTO) 1.4 /CMM (0.8-4.8); LYMPHOCYTES % (AUTO) 5.8 % (20.0-44.0); MEAN CORPUSCULAR HEMOGLOBIN 32 PG (26.0-33.0); MEAN CORPUSCULAR HGB CONC 32 g/dl (31.0-36.0); MEAN CORPUSCULAR VOLUME 103 fL (80-96); MONOCYTES # (AUTO) 2.9 /CMM (0.1-1.30); MONOCYTES % (AUTO) 11.9 % (2.0-12.0); NEUTROPHILS # (AUTO) 19.8 /CMM (1.8-8.9); NEUTROPHILS % (AUTO) 82.3 % (43.0-81.0); PLATELET COUNT (AUTO) 171 /CMM (150-450); RDW COEFFICIENT OF VARIATION 14.8 (11.5-15.0); RED BLOOD CELL COUNT(AUTO) 4.54 MIL/uL (4.5-6.0)
[2017-03-26 00:16] LABS: CALCIUM, SERUM 9.4 mg/dL (8.5-10.1); CREATININE 1.7 mg/dL (0.6-1.3); MAGNESIUM 1.8 mg/dL (1.8-2.4); PHOSPHORUS 3.3 mg/dL (2.5-4.9); POTASSIUM 4.8 mmol/L (3.5-5.1)
[2017-03-26] MEDS: VANCOMYCIN HCL 125 MG/2.5 ML ORAL.SUSP PO SCH ×4 (00:19→17:52)
[2017-03-26] MEDS: METOPROLOL TARTRATE 25 MG TABLET PO SCH ×5 (00:20→23:22)
[2017-03-26] MEDS: METRONIDAZOLE 500MG/ NS 100ML 500 MG in PREMIX 1 EA IV SCH ×3 (06:09→23:22)
--- NOTE | 2017-03-26 06:21 | NUR ---
MS/RN NOTES SPOKE TO DR. WILSON REGARDING PT'S UNWITNESSED FALL. NOTIFIED HER THAT PT STATED HE VOLUNTARILY LAID DOWN ON THE FLOOR TO HELP MAKE HIM FEEL BETTER. DENIES PAIN OR INJURY TO HEAD OR OTHER PARTS OF THE BODY. VITALS SIGNS RECHECKED SS=443/91, HR=57, O2 SAT= 99% ON RA, RESP=20. PT REFUSED RECTAL TEMP CHECK, ORAL AND AXILLARY UNABLE TO READ SINCE START OF SHIFT. ASSISTED BACK INTO BED, SIDE RAILS UPX3 AND BED ALARM ON. REINFORCED PT TO REMAIN IN BED AND ASK FOR ASSISTANCE IF TRYING TO GETTING OUT OF BED. VERBALIZED UNDERSTANDING. DR. WILSON ORDERED NEURO CHECKS Q4H. ORDERS NOTED AND CARRIED OUT.
--- NOTE | 2017-03-26 07:30 | NUR ---
MS/RN CLOSING NOTES PT RESTING COMFORTABLY IN BED. CONFUSED. ON ROOM AIR, BREATHING EVEN AND UNLABORED. NO SOB OR DISTRESS NOTED. DENIES PAIN. JOSEPH MIDLINE PATENT AND INTACT. EMOTIONAL SUPPORT PROVIDED AND REDIRECTED PT AT TIMES OF HYPERVENTILATION AND ANXIETY. BED IN LOW/LOCKED POSITION WITH CALL LIGHT IN REACH. SIDE RAILS UPX3 AND BED ALARM ON FOR SAFETY. RE-EDUCATED PT TO REMAIN IN BED AND ASK FOR ASSISTANCE IF NEEDING TO GET OUT OF BED. VERBALIZED UNDERSTANDING BUT REINFORCEMENT NEEDED. ENDORSED TO AM SHIFT BRYSON.
[2017-03-26] MEDS: ACETYLCYSTEINE 10% SOLN 400 MG/4 ML VIAL NEB SCH ×2 (07:35→15:30)
[2017-03-26 08:00] VITALS: BP 132/73
[2017-03-26] MEDS: ACETAMINOPHEN 325 MG TABLET PO PRN (08:09)
[2017-03-26] MEDS: LACTOBACILLUS RHAMNOSUS GG 1 EACH CAP.SPRINK PO SCH ×2 (08:09→17:52)
[2017-03-26] MEDS: LOSARTAN POTASSIUM 50 MG TABLET PO SCH (08:09)
[2017-03-26] MEDS: AMLODIPINE BESYLATE 5 MG TABLET PO SCH (08:10)
[2017-03-26] MEDS: PANTOPRAZOLE 40 MG TABLET.DR PO SCH (08:10)
--- NOTE | 2017-03-26 08:54 | NUR ---
RN NOTES JOSE ALFREDO SUN PLACED ON PT PRN PER ORDER. TEMP IS 95.8. WILL MONITOR.
[2017-03-26] MEDS ORDERED: predniSONE 20 MG TABLET PO SCH (09:00)
[2017-03-26] MEDS ORDERED: IV NS 0.9% 1,000 ML IV PRN (09:30)
--- NOTE | 2017-03-26 10:04 | NUR ---
RN NOTES PER DEREK HERNADEZ AND TYLENOL. PT IS NOT TO HAVE TYLENOL PRODUCTS.
[2017-03-26] MEDS: IPRATROPIUM NEB FS 0.5 MG/2.5 ML AMPUL.NEB NEB SCH ×4 (10:10→19:24)
[2017-03-26] MEDS: ALBUTEROL FS 2.5 MG/0.5 ML VIAL.NEB NEB SCH ×4 (10:10→19:24)
[2017-03-26 13:28] LABS: BASOPHILS # (AUTO) 0.1 /CMM (0.0-0.2); BASOPHILS % (AUTO) 0.4 % (0.0-2.0); HEMATOCRIT 41 % (39-51); HEMOGLOBIN 13.2 g/dL (13.5-17.5); LYMPHOCYTES # (AUTO) 0.7 /CMM (0.8-4.8); LYMPHOCYTES % (AUTO) 3.2 % (20.0-44.0); MEAN CORPUSCULAR HEMOGLOBIN 32 PG (26.0-33.0); MEAN CORPUSCULAR HGB CONC 32 g/dl (31.0-36.0); MEAN CORPUSCULAR VOLUME 102 fL (80-96); MONOCYTES # (AUTO) 2.3 /CMM (0.1-1.30); MONOCYTES % (AUTO) 9.8 % (2.0-12.0); NEUTROPHILS # (AUTO) 20.2 /CMM (1.8-8.9); NEUTROPHILS % (AUTO) 86.6 % (43.0-81.0); PLATELET COUNT (AUTO) 166 /CMM (150-450); RDW COEFFICIENT OF VARIATION 14.5 (11.5-15.0); RED BLOOD CELL COUNT(AUTO) 4.07 MIL/uL (4.5-6.0); WHITE BLOOD COUNT (AUTO) 23.3 K/uL (4.3-11.0)
[2017-03-26 13:44] LABS: ALBUMIN 2.9 g/dL (3.4-5.0); CALCIUM, SERUM 8.8 mg/dL (8.5-10.1); CREATININE 2.5 mg/dL (0.6-1.3); MAGNESIUM 1.8 mg/dL (1.8-2.4); PHOSPHORUS 6.9 mg/dL (2.5-4.9); POTASSIUM 5.8 mmol/L (3.5-5.1); TOTAL PROTEIN, SERUM 7.3 g/dL (6.4-8.2)
--- NOTE | 2017-03-26 14:08 | NUR ---
SAADIA met with pt. earlier today who informed SAADIA to contact his brother Ruben and his phone number is in the chart. SAADIA contacted pt's RN Eleni who gave SAADIA Miranda's phone number and informed SAADIA that his brother had stopped by to see the pt. SW tried to call Ruben however his voicemail was full and SAADIA was unable to leave a voicemail with call back number. SW to try again later.
[2017-03-26] MEDS: CEFEPIME 2 GM in IV D5W 100 ML IV SCH (14:32)
[2017-03-26] MEDS ORDERED: DEXTROSE 50%-WATER 50 ML DISP.SYRIN IVP ONE (14:45)
--- NOTE | 2017-03-26 14:52 | NUR ---
RN NOTES ALERTED BY PHARMACY TO BLOOD SUGAR OF 48. POC GLUCOSE IS 34. CALLED GONZALEZ SANTOS. HE STATES TO GIVE D50 AND RECHECK SUGAR IN 20 MINS. WILL CARRY OUT ORDERS.
--- NOTE | 2017-03-26 15:20 | NUR ---
RN NOTES RECHECK OF PT BLOOD SUGAR IS NOW AT 102 AFTER D50.
[2017-03-26] MEDS: ONDANSETRON HCL/PF 4 MG/2 ML VIAL IVP PRN ×2 (15:24→22:12)
--- NOTE | 2017-03-26 15:37 | NUR ---
RN NOTES WILL DC NS DR DWYER ONLY WANTS 1L NS TO GIVE.
[2017-03-26 17:39] LABS: TROPONIN I 0.313 ng/mL (0.00-0.056)
--- NOTE | 2017-03-26 17:54 | NUR ---
RN NOTES INFORMED DR SANTOS OF LACTIC ACID OF 11.6. ENTRY LEVEL ELECTRICIAN STATES TO RECHECK WHEN THE 1L OF NS IS FINISHED INFUSING.
--- NOTE | 2017-03-26 18:15 | NUR ---
RN NOTES DID BLADER SCAN PER DISPOSAL WORKER DANIELLE'S ORDER. SHOWED GREATER THAN 203ML. TROPONIN ALSO CAME BACK AT 0.313. CALLED EPIC LINE FOR DANIELLE TO TO INFORM. WAITING FOR RETURN CALL FROM DISPOSAL WORKER FOR ORDERS.
--- NOTE | 2017-03-26 19:02 | NUR ---
RN CLOSING NOTES PATIENT RESTING COMFORTABLY IN BED. NO SOB OR DISTRESS NOTED AT THIS TIME. PATIENT DOES NOT APPEAR TO BE IN PAIN, NO FACIAL GRIMACE NOTE. HERNANDEZ INSERTED PER REPAIR WEAVER ORDER. OUTPUT DOCUMENTED. BED IN A LOW POSITION, CALL LIGHT WITHIN PATIENT REACH, SITTER IS AT THE BEDSIDE. LACTIC ACID WILL BE DRAWN BY SENIOR RECEPTIONIST AFTER 1L NS FINISHES. WILL ENDORSE FOR BRYSON.
--- NOTE | 2017-03-26 19:30 | NUR ---
MS/RN OPENING NOTES PT RECEIVED IN BED. CONFUSED. SITTER AT BEDSIDE. ON ROOM AIR, BREATHING EVEN AND UNLABORED, NO APPARENT SIGN OF DISTRESS. PT APPEARS CALM. HERNANDEZ IN PLACE DRAINING TO GRAVITY. JOSEPH MIDLINE RUNNING REMAINDER OF 1L NS PER DR. MICHAEL DWYER AT 100ML/HR DUE TO PT'S POOR KIDNEY FUNCTION. LACTIC ACID ELEVATED. WILL REDRAW ONCE NS IS COMPLETE. BED IN LOW/LOCKED POSITION WITH CALL LIGHT IN REACH AND SITTER AT BEDSIDE. SIDE RAILS UPX3 AND BED ALARM ON FOR SAFETY. WILL CONTINUE TO MONITOR
[2017-03-26 20:00] VITALS: BP 123/95
--- NOTE | 2017-03-26 23:22 | NUR ---
MS/RN NOTES 1L OF NS COMPLETED. CALLED LAB TO DRAW LACTIC ACID REFLEX. AWAITING FOR RESULTS. Addendum: 03/26/17 at 2337 by ANNE DURAN RN FLAGYL ADMINISTERED LATE DUE TO 1L OF NS INFUSING.
[2017-03-27] MEDS: ACETYLCYSTEINE 10% SOLN 400 MG/4 ML VIAL NEB SCH ×2 (00:04→07:30)
--- NOTE | 2017-03-27 00:12 | NUR ---
MS/RN NOTES SPOKE TO DR. WILSON AND NOTIFIED HER OF THE LACTIC ACID=11.0 MADE AWARE OF ORDER 1L OF NS INFUSED AT 100ML/HR TODAY PER DR. MICHAEL DWYER DUE TO PT'S POOR KIDNEY FUNCTION AND DID NOT WANT TO FLUID OVERLOAD PT. DR. WILSON WITH ORDERS TO RECHECK LACTIC ACID IN 4 HOURS. ORDERS NOTED AND CARRIED OUT.
[2017-03-27] MEDS: VANCOMYCIN HCL 125 MG/2.5 ML ORAL.SUSP PO SCH ×4 (01:00→17:06)
[2017-03-27 05:10] LABS: HEMATOCRIT 41 % (39-51); HEMOGLOBIN 13.3 g/dL (13.5-17.5); LYMPHOCYTES # (AUTO) 0.9 /CMM (0.8-4.8); LYMPHOCYTES % (AUTO) 5.2 % (20.0-44.0); MEAN CORPUSCULAR HEMOGLOBIN 33 PG (26.0-33.0); MEAN CORPUSCULAR HGB CONC 33 g/dl (31.0-36.0); MEAN CORPUSCULAR VOLUME 100 fL (80-96); MONOCYTES # (AUTO) 1.6 /CMM (0.1-1.30); MONOCYTES % (AUTO) 9.4 % (2.0-12.0); NEUTROPHILS # (AUTO) 14.6 /CMM (1.8-8.9); NEUTROPHILS % (AUTO) 85.4 % (43.0-81.0); PLATELET COUNT (AUTO) 149 /CMM (150-450); RDW COEFFICIENT OF VARIATION 14.2 (11.5-15.0); RED BLOOD CELL COUNT(AUTO) 4.08 MIL/uL (4.5-6.0); WHITE BLOOD COUNT (AUTO) 17.1 K/uL (4.3-11.0)
[2017-03-27 05:22] LABS: CALCIUM, SERUM 8.5 mg/dL (8.5-10.1); CREATININE 2.9 mg/dL (0.6-1.3); POTASSIUM 5.7 mmol/L (3.5-5.1)
--- NOTE | 2017-03-27 05:50 | NUR ---
MS/RN NOTES SPOKE TO DR. WILSON TO NOTIFY HER OF LACTIC ACID CRITICAL VALUE OF 9.5 NO NEW ORDERS.
[2017-03-27] MEDS: METOPROLOL TARTRATE 25 MG TABLET PO SCH ×3 (06:12→17:07)
[2017-03-27] MEDS: ONDANSETRON HCL/PF 4 MG/2 ML VIAL IVP PRN ×2 (06:12→14:49)
[2017-03-27] MEDS: METRONIDAZOLE 500MG/ NS 100ML 500 MG in PREMIX 1 EA IV SCH ×3 (07:00→21:28)
[2017-03-27] MEDS: IPRATROPIUM NEB FS 0.5 MG/2.5 ML AMPUL.NEB NEB SCH ×4 (07:30→19:18)
[2017-03-27] MEDS: ALBUTEROL FS 2.5 MG/0.5 ML VIAL.NEB NEB SCH ×4 (07:30→19:17)
--- NOTE | 2017-03-27 07:32 | NUR ---
MS/RN CLOSING NOTES PT RESTING IN BED, HIGH FOWLERS POSITION. CURRENTLY ON ROOM AIR, BREATHING EVEN AND UNLABORED. PT IS CALM AT THIS TIME. NO APPARENT SIGNS OF DISTRESS, SOB OR PAIN. SITTER AT BEDSIDE. JOSEPH MIDLINE PATENT AND INTACT. PT VOMITED MULTIPLE SMALL AMOUNTS OF LIQUID BROWN EMESIS WITH SOME FOOD PARTICLES. ENCOURAGED PO INTAKE TOLERATED AND PRN ZOFRAN ADMINISTERED ORDERED. MADE PT COMFORTABLE DURING SHIFT. BED IN LOW/LOCKED POSITION WITH CALL LIGHT IN REACH. SIDE RAILS UPX3 AND BED ALARM ON. ENDORSED TO AM SHIFT BRYSON.
[2017-03-27 08:00] VITALS: BP 134/91
[2017-03-27] MEDS: PANTOPRAZOLE 40 MG TABLET.DR PO SCH (08:14)
[2017-03-27] MEDS: predniSONE 20 MG TABLET PO SCH (08:14)
[2017-03-27] MEDS: LACTOBACILLUS RHAMNOSUS GG 1 EACH CAP.SPRINK PO SCH ×2 (08:14→17:06)
[2017-03-27] MEDS: LOSARTAN POTASSIUM 50 MG TABLET PO SCH (08:15)
[2017-03-27] MEDS: AMLODIPINE BESYLATE 5 MG TABLET PO SCH (08:15)
[2017-03-27] MEDS: IV NS 0.9% 1,000 ML IV PRN (10:13)
[2017-03-27] MEDS: CEFEPIME 2 GM in IV D5W 100 ML IV SCH (14:49)
[2017-03-27] MEDS: ACETYLCYSTEINE 20% ORAL SOLN 6,000 MG/30 ML VIAL PO SCH ×2 (14:49→21:28)
[2017-03-27] MEDS ORDERED: IOHEXOL-300 100 ML VIAL IV ONE (15:28)
[2017-03-27] MEDS ORDERED: IV NS 0.9% 250 ML IV ONE (15:28)
--- NOTE | 2017-03-27 15:32 | NUR ---
RN NOTES CALLED PRE BILLING CLINICIANDANIELLE, TO INFORM HIM OF THE NEW LACTIC ACID LEVEL OF 5.4. PRE BILLING CLINICIAN ORDERED A REDRAW ON THE LACTIC LEVEL AT [address]. [address] ORDERS.
[2017-03-27 16:00] VITALS: BP 134/80
--- NOTE | 2017-03-27 18:40 | NUR ---
RN CLOSING NOTES NO SIGNIFICANT CHANGES IN PATIENT CONDITION THROUGHOUT THE SHIFT. NO SOB OR DISTRESS NOTED AT THIS TIME. PATIENT DOES NOT APPEAR TO BE IN PAIN. BED IN A LOW POSITION, CALL LIGHT WITHIN PATIENT REACH, SITTER IS AT THE BEDSIDE. WILL ENDORSE FOR BRYSON.
--- NOTE | 2017-03-27 19:00 | NUR ---
MS/RN OPENING NOTES PT RECEIVED IN BED. CONFUSED, A/O X 1. SITTER AT BEDSIDE. TOLERATING ROOM AIR, BREATHING EVEN AND UNLABORED, NO APPARENT SIGN OF DISTRESS. PT APPEARS CALM. BED IN LOW/LOCKED POSITION WITH CALL LIGHT IN REACH. SIDE RAILS UPX3 AND BED ALARM ON FOR SAFETY. WILL CONTINUE TO MONITOR
[2017-03-27 20:00] VITALS: BP 120/82
[2017-03-28] MEDS: VANCOMYCIN HCL 125 MG/2.5 ML ORAL.SUSP PO SCH ×5 (00:50→23:48)
[2017-03-28] MEDS: METOPROLOL TARTRATE 25 MG TABLET PO SCH ×5 (00:51→23:48)
--- NOTE | 2017-03-28 01:09 | NUR ---
REPORTED TO DR. KATIE HEADLEY RESULTS OF RECENT LACTIC ACID TRENDING DOWN WITH NO NEW ORDERS NOTED AND CARRIED OUT
[2017-03-28] MEDS: METRONIDAZOLE 500MG/ NS 100ML 500 MG in PREMIX 1 EA IV SCH ×3 (05:23→21:42)
[2017-03-28] MEDS: IV NS 0.9% 1,000 ML IV PRN ×2 (05:23→23:48)
--- NOTE | 2017-03-28 06:24 | NUR ---
MS RN CLOSING NOTES PATIENT COMFORTABLY ASLEEP AND EASILY AWAKEN, HOB ELEVATED FOR BETTER LUNG EXPANSION. NO COMPLAIN OF PAIN AT THIS TIME. RESPIRATIONS EVEN AND UNLABORED. NO S/S OF ACUTE DISTRESS, NO SOB, AFEBRILE, ALL NURSING CARE RENDERED, NEEDS ATTENDED AND ANTICIPATED, KEPT CLEAN AND DRY AND COMFORTABLE, GOOD SKIN CARE PROVIDED. FREQUENT VISUAL CHECK DONE FOR SAFETY EVERY 2 HOURS. ON ATB WITH NO A/R NOTED. ASSISTED REPOSITION EVERY 2 HOURS FOR COMFORT AND SKIN MGT. SAFE HAZARD FREE ENVIRONMENT PROVIDED. CALL LIGHT WITHIN EASY TO REACH, ON LOW BED AT ALL TIMES TO ENSURE SAFETY, WILL ENDORSE TO THE NEXT SHIFT CONTINUE PLAN OF CARE. NO S/S OF HYPO/HYPERGLYCEMIA, F/C INTACT DRAINING YELLOW VIA GRAVITY WITH NO SEDIMENTS, NO HEMATURIA, NO CLOUDINESS. GOOD FC CARE PROVIDED.
[2017-03-28 06:30] LABS: HEMATOCRIT 42 % (39-51); HEMOGLOBIN 13.6 g/dL (13.5-17.5); LYMPHOCYTES # (AUTO) 0.4 /CMM (0.8-4.8); LYMPHOCYTES % (AUTO) 2.3 % (20.0-44.0); MEAN CORPUSCULAR HEMOGLOBIN 32 PG (26.0-33.0); MEAN CORPUSCULAR HGB CONC 33 g/dl (31.0-36.0); MEAN CORPUSCULAR VOLUME 99 fL (80-96); MONOCYTES # (AUTO) 1.4 /CMM (0.1-1.30); MONOCYTES % (AUTO) 8.5 % (2.0-12.0); NEUTROPHILS # (AUTO) 14.7 /CMM (1.8-8.9); NEUTROPHILS % (AUTO) 89.2 % (43.0-81.0); PLATELET COUNT (AUTO) 146 /CMM (150-450); RED BLOOD CELL COUNT(AUTO) 4.22 MIL/uL (4.5-6.0); WHITE BLOOD COUNT (AUTO) 16.5 K/uL (4.3-11.0)
--- NOTE | 2017-03-28 07:29 | NUR ---
MS RN OPENING NOTES PT RECEIVED AWAKE IN BED IN NO ACUTE SIGNS OF DISTRESS. SITTER AT BEDSIDE. A/O X 1. CONFUSED. ROOM AIR, TOLERATING WITH NO SOB NOTED. BED IN LOW/LOCKED POSITION WITH CALL LIGHT IN REACH. SIDE RAILS UP X3 AND BED ALARM ON FOR SAFETY. WILL CONTINUE TO MONITOR PT ACCORDINGLY.
[2017-03-28 08:00] VITALS: BP 123/78
[2017-03-28] MEDS: LACTOBACILLUS RHAMNOSUS GG 1 EACH CAP.SPRINK PO SCH ×2 (08:31→17:11)
[2017-03-28] MEDS: ACETYLCYSTEINE 20% ORAL SOLN 6,000 MG/30 ML VIAL PO SCH ×2 (08:31→21:42)
[2017-03-28] MEDS: predniSONE 20 MG TABLET PO SCH (08:31)
[2017-03-28] MEDS: AMLODIPINE BESYLATE 5 MG TABLET PO SCH (08:31)
[2017-03-28] MEDS: PANTOPRAZOLE 40 MG TABLET.DR PO SCH (08:31)
[2017-03-28] MEDS: ALBUTEROL FS 2.5 MG/0.5 ML VIAL.NEB NEB SCH ×4 (09:50→20:33)
[2017-03-28] MEDS: IPRATROPIUM NEB FS 0.5 MG/2.5 ML AMPUL.NEB NEB SCH ×4 (09:50→20:33)
--- NOTE | 2017-03-28 09:55 | NUR ---
Patient refused the breathing tx and the meds already opened and not able to put it back at [facility].
[2017-03-28 12:11] LABS: CALCIUM, SERUM 7.9 mg/dL (8.5-10.1); CREATININE 3.1 mg/dL (0.6-1.3); PHOSPHORUS 5.5 mg/dL (2.5-4.9); POTASSIUM 4.7 mmol/L (3.5-5.1)
[2017-03-28] MEDS: CEFEPIME 2 GM in IV D5W 100 ML IV SCH (14:46)
[2017-03-28 16:00] VITALS: BP 117/77
--- NOTE | 2017-03-28 18:51 | NUR ---
MS/R CLOSING NOTES PT RESTING IN BED AT MODERATE HIGH BACKREST POSITION. A/O X 1, CONFUSED ON AND OFF DURING THE DAY. SITTER AT BEDSIDE FOR CLOSE MONITORING. TOLERATING ROOM AIR, BREATHING EVEN AND UNLABORED. JOSEPH MIDLINE INTACT AND PATENT WITH NS AT 80ML/HR INFUSING WELL. MAINTAINED BED IN LOW/LOCKED POSITION WITH CALL LIGHT IN REACH. SIDE RAILS UP X3 AND BED ALARM ON FOR SAFETY. ALL NEEDS AND CARE PROVIDED WELL. WILL ENDORSED TO DREDGE ENGINEER NURSE FOR BRYSON.
--- NOTE | 2017-03-28 19:00 | NUR ---
MS/RN OPENING NOTES PT RECEIVED IN BED. A/O X 1. SITTER AT BEDSIDE. BREATHING EVEN AND UNLABORED, TOLERATING ROOM AIR 98% NO APPARENT SIGN OF DISTRESS. BED IN LOW/LOCKED POSITION WITH CALL LIGHT IN REACH. SIDE RAILS UPX3 AND BED ALARM ON FOR SAFETY. WILL CONTINUE TO MONITOR
[2017-03-28 20:00] VITALS: BP 126/91
[2017-03-29] MEDS: METRONIDAZOLE 500MG/ NS 100ML 500 MG in PREMIX 1 EA IV SCH ×3 (04:54→21:20)
[2017-03-29] MEDS: VANCOMYCIN HCL 125 MG/2.5 ML ORAL.SUSP PO SCH ×4 (05:01→23:31)
[2017-03-29] MEDS: METOPROLOL TARTRATE 25 MG TABLET PO SCH ×4 (05:02→23:31)
--- NOTE | 2017-03-29 06:36 | NUR ---
MS RN CLOSING NOTES PT ASLEEP EASILY AWAKEN, HEAD OF BED ELEVATED FOR BETTER LUNG EXPANSION. 1:1 SITTER,. IN STABLE CONDITION. TOLERATING ROOM AIR 02 SAT AT 99%. NO S/S OF ACUTE DISTRESS, NO SOB, RESPIRATIONS EVEN AND UNLABORED. MAINTAINS ON CONTACT ISOLATION.. ASSIST REPOSITION PT Q2H FOR COMFORT. AFEBRILE, ALL NURSING CARE RENDERED, NEEDS ATTENDED AND ANTICIPATED, KEPT CLEAN AND DRY AND COMFORTABLE, GOOD SKIN CARE PROVIDED. SAFETY HAZARD FREE ENVIRONMENT.. CALL LIGHT WITHIN EASY TO REACH, ON LOW BED AT ALL TIMES TO ENSURE SAFETY, WILL ENDORSE TO THE NEXT SHIFT CONTINUE PLAN OF CARE.
--- NOTE | 2017-03-29 07:22 | NUR ---
MS RN OPENING NOTES PATIENT RECEIVED RESTING COMFORTABLY BED IN NO ACUTE SIGNS OF DISTRESS. A/O X 1. CALMED AND QUIET AT THIS TIME WITH NO C/O PAIN VOICED. PT WITH 1:1 SITTER AT BEDSIDE FOR CLOSE MONITORING. JOSEPH MIDLINE IN PLACED WITH NS @ 80ML RUNNING. ON ROOM AIR, BREATHING EVEN AND UNLABORED. BED IN LOW/LOCKED POSITION WITH CALL LIGHT IN REACH. SIDE RAILS UP X3 AND BED ALARM ON FOR SAFETY. WILL CONTINUE TO MONITOR PT ACCORDINGLY.
[2017-03-29] MEDS: ALBUTEROL FS 2.5 MG/0.5 ML VIAL.NEB NEB SCH ×4 (07:26→19:50)
[2017-03-29] MEDS: IPRATROPIUM NEB FS 0.5 MG/2.5 ML AMPUL.NEB NEB SCH ×4 (07:26→19:50)
[2017-03-29] MEDS: LACTOBACILLUS RHAMNOSUS GG 1 EACH CAP.SPRINK PO SCH ×2 (08:18→16:20)
[2017-03-29] MEDS: PANTOPRAZOLE 40 MG TABLET.DR PO SCH (08:18)
[2017-03-29] MEDS: AMLODIPINE BESYLATE 5 MG TABLET PO SCH (08:18)
[2017-03-29 08:20] LABS: EOSINOPHILS # (AUTO) 0.1 /CMM (0.0-0.7); EOSINOPHILS % (AUTO) 0.3 % (0.0-6.0); HEMATOCRIT 39 % (39-51); LYMPHOCYTES # (AUTO) 0.7 /CMM (0.8-4.8); LYMPHOCYTES % (AUTO) 4.3 % (20.0-44.0); MEAN CORPUSCULAR HEMOGLOBIN 32 PG (26.0-33.0); MEAN CORPUSCULAR HGB CONC 33 g/dl (31.0-36.0); MEAN CORPUSCULAR VOLUME 98 fL (80-96); MONOCYTES # (AUTO) 0.8 /CMM (0.1-1.30); MONOCYTES % (AUTO) 4.9 % (2.0-12.0); NEUTROPHILS # (AUTO) 14.6 /CMM (1.8-8.9); NEUTROPHILS % (AUTO) 90.5 % (43.0-81.0); PLATELET COUNT (AUTO) 132 /CMM (150-450); WHITE BLOOD COUNT (AUTO) 16.1 K/uL (4.3-11.0)
[2017-03-29] MEDS: predniSONE 20 MG TABLET PO SCH (08:21)
[2017-03-29 08:49] LABS: POTASSIUM 4.7 mmol/L (3.5-5.1)
--- NOTE | 2017-03-29 09:37 | NUR ---
RN NOTES EQUAL OPPORTUNITY SPECIALIST Niko SANTOS ON UNIT AND MADE AWARE OF ALL PT'S ABNORMAL LABS. NO NEW ORDERS MADE AT THIS TIME.
[2017-03-29] MEDS: IV NS 0.9% 1,000 ML IV PRN (15:47)
[2017-03-29] MEDS: CEFEPIME 2 GM in IV D5W 100 ML IV SCH (15:47)
[2017-03-29 16:00] VITALS: BP 126/74
[2017-03-29] MEDS: ONDANSETRON HCL/PF 4 MG/2 ML VIAL IVP PRN (16:20)
--- NOTE | 2017-03-29 16:23 | NUR ---
RN NOTES PT SEEN BY TAX STAFF ACCOUNTANT WITH RECOMMENDATION TO CHANGE DIET FROM REGULAR TO RENAL DIET CCHO 60MG. SOCIAL MEDIA CAMPAIGN MANAGER ROMINA SANTOS INFORMED AND SAID OK TO CHANGE. WILL CONTINUE TO MONITOR.
--- NOTE | 2017-03-29 16:25 | NUR ---
RN NOTES PT VOMITED SMALL AMOUNT OF CLEAR LIQUID WITH SMALL PIECES OF UNDIGESTED FOOD ABOUT 50 ML. PRN ZOFRAN 4MG/2ML GIVEN. WILL MONITOR EFFECTIVENESS OF MEDICATION. WILL CONTINUE TO MONITOR.
--- NOTE | 2017-03-29 19:00 | NUR ---
MS/RN OPENING NOTES RECEIVED IN BED. A/O X 1. SITTER AT BEDSIDE. BREATHING EVEN AND UNLABORED, TOLERATING ROOM AIR 99% NO APPARENT SIGN OF DISTRESS. BED IN LOW/LOCKED POSITION WITH CALL LIGHT IN REACH. SIDE RAILS UPX3 AND BED ALARM ON FOR SAFETY. WILL CONTINUE TO MONITOR
[2017-03-29 20:00] VITALS: BP_SYST 121; BP_SYST 129; BP_DIAS 80
--- NOTE | 2017-03-29 23:24 | NUR ---
MS RN NOTES BLOOD SUGAR CHECK 273 PT JUST ATE SNACKS PER PATIENT IS HUNGRY NOTIFIED OUR OWN HOSPITALIST DR. KATIE Cooper AND RELAYED NO NEW ORDERS
[2017-03-30] MEDS: IV NS 0.9% 1,000 ML IV PRN (03:24)
[2017-03-30] MEDS: METRONIDAZOLE 500MG/ NS 100ML 500 MG in PREMIX 1 EA IV SCH ×3 (04:09→20:35)
[2017-03-30] MEDS: METOPROLOL TARTRATE 25 MG TABLET PO SCH ×3 (05:36→17:40)
[2017-03-30] MEDS: VANCOMYCIN HCL 125 MG/2.5 ML ORAL.SUSP PO SCH ×3 (05:36→17:40)
--- NOTE | 2017-03-30 06:31 | NUR ---
MS RN CLOSING NOTES ASLEEP AND EASILY AWAKEN, STABLE CONDITION. HEAD OF BED ELEVATED FOR BETTER LUNG EXPANSION. TOLERATING ROOM AIR 02 SAT AT 98%. NO S/S OF ACUTE DISTRESS, NO SOB, RESPIRATIONS EVEN AND UNLABORED. PATIENT DENIES PAIN AT THIS TIME. AFEBRILE, ALL NURSING CARE RENDERED, NEEDS ATTENDED AND ANTICIPATED, KEPT CLEAN AND DRY AND COMFORTABLE, GOOD SKIN CARE PROVIDED. SAFETY HAZARD FREE ENVIRONMENT.. ON ATB WITH NO A/R NOTED. F/C INTACT DRAINING YELLOW VIA GRAVITY WITH NO SEDIMENTS NO HEMATURIA NO CLOUDINESS. GOOD F/C CARE PROVIDED. CALL LIGHT WITHIN EASY TO REACH, ON LOW BED AT ALL TIMES TO ENSURE SAFETY, WILL ENDORSE TO THE NEXT SHIFT CONTINUE PLAN OF CARE.
[2017-03-30] MEDS: IPRATROPIUM NEB FS 0.5 MG/2.5 ML AMPUL.NEB NEB SCH ×4 (07:40→19:06)
[2017-03-30] MEDS: ALBUTEROL FS 2.5 MG/0.5 ML VIAL.NEB NEB SCH ×4 (07:40→19:06)
--- NOTE | 2017-03-30 07:41 | NUR ---
RN OPENING NOTES RECEIVED PATIENT RESTING COMFORTABLY IN BED. AOX1, CONFUSED AND PARANOID. DENIES PAIN. DENIES CP. COMPLAINING OF SOB BUT REFUSES OXYGEN. BREATHING TREATMENT PROVIDED. RESPIRATIONS EVEN AND UNLABORED. NO ACUTE DISTRESS. JOSEPH MIDLINE PATENT AND INTACT WITH NS RUNNING AT 80MLS/HR. NO S/S OF INFILTRATION. ISOLATION PRECAUTIONS FOR C. DIFF IN PLACE. BED LOCKED IN THE LOWEST POSITION WITH SIDE RAILS UP X2. CALL LIGHT WITHIN REACH. WILL CONTINUE TO MONITOR ASSESS AND EDUCATE PATIENT THROUGHOUT SHIFT.
[2017-03-30 08:00] VITALS: BP 139/86
[2017-03-30] MEDS: PANTOPRAZOLE 40 MG TABLET.DR PO SCH (09:34)
[2017-03-30] MEDS: LACTOBACILLUS RHAMNOSUS GG 1 EACH CAP.SPRINK PO SCH ×2 (09:34→17:13)
[2017-03-30] MEDS: AMLODIPINE BESYLATE 5 MG TABLET PO SCH (09:34)
[2017-03-30] MEDS: predniSONE 20 MG TABLET PO SCH (09:35)
[2017-03-30 10:19] LABS: BASOPHILS % (AUTO) 0.1 % (0.0-2.0); EOSINOPHILS # (AUTO) 0.1 /CMM (0.0-0.7); EOSINOPHILS % (AUTO) 0.6 % (0.0-6.0); HEMATOCRIT 38 % (39-51); HEMOGLOBIN 12.3 g/dL (13.5-17.5); LYMPHOCYTES # (AUTO) 0.6 /CMM (0.8-4.8); LYMPHOCYTES % (AUTO) 3.8 % (20.0-44.0); MEAN CORPUSCULAR HEMOGLOBIN 32 PG (26.0-33.0); MEAN CORPUSCULAR HGB CONC 32 g/dl (31.0-36.0); MEAN CORPUSCULAR VOLUME 99 fL (80-96); MONOCYTES # (AUTO) 1.1 /CMM (0.1-1.30); MONOCYTES % (AUTO) 6.9 % (2.0-12.0); NEUTROPHILS # (AUTO) 14.2 /CMM (1.8-8.9); NEUTROPHILS % (AUTO) 88.6 % (43.0-81.0); PLATELET COUNT (AUTO) 117 /CMM (150-450); RDW COEFFICIENT OF VARIATION 13.9 (11.5-15.0); RED BLOOD CELL COUNT(AUTO) 3.86 MIL/uL (4.5-6.0)
[2017-03-30 10:37] LABS: CALCIUM, SERUM 8.4 mg/dL (8.5-10.1); CREATININE 2.7 mg/dL (0.6-1.3); POTASSIUM 4.2 mmol/L (3.5-5.1)
[2017-03-30 10:39] LABS: BILIRUBIN,DIRECT 0.9 mg/dL (0.0-0.2); BILIRUBIN,TOTAL 1.8 mg/dL (0.2-1.0)
[2017-03-30 10:40] LABS: ALBUMIN 2.6 g/dL (3.4-5.0); TOTAL PROTEIN, SERUM 7.1 g/dL (6.4-8.2)
[2017-03-30 16:00] VITALS: BP 125/79
[2017-03-30] MEDS: CEFEPIME 2 GM in IV D5W 100 ML IV SCH (17:04)
--- NOTE | 2017-03-30 19:30 | NUR ---
RN NOTES RECEIVED PT AWAKE ON BED, A/OX1-2, IV NS RUNNING @ 80ML/HR, F/C DRAINING CLEAR MINDA URINE, DENIES PAIN, NO SOB, CALL LIGHT WITHIN REACH, SIDERAILS UPX2 CONTINUE TO MONITOR
--- NOTE | 2017-03-30 19:35 | NUR ---
RN CLOSING NOTES PATIENT RESTING COMFORTABLY IN BED. DENIES ANY PAIN. DENIES SOB AND CP. RESPIRATIONS EVEN AND UNLABORED. JOSEPH MIDLINE PATENT AND INTACT WITH 80ML/HR. F/C IN PLACE DRAINING CLEAR DARK YELLOW URINE. ALL NEEDS MET. ALL MEDS GIVEN APPROPRIATE. WILL ENDORSE TO NIGHT RN FOR BRYSON.
[2017-03-30 20:00] VITALS: BP 131/81
[2017-03-30 20:03] VITALS: BP 131/81
--- NOTE | 2017-03-30 23:00 | NUR ---
RN NOTES PT. HAD BOWEL MOVEMENT, SOFT YELLOW STOOL, NO SMELL, EVENING CARE RENDERED
[2017-03-31] MEDS: VANCOMYCIN HCL 125 MG/2.5 ML ORAL.SUSP PO SCH ×4 (00:08→17:29)
[2017-03-31] MEDS: METOPROLOL TARTRATE 25 MG TABLET PO SCH ×4 (00:09→17:30)
--- NOTE | 2017-03-31 04:30 | NUR ---
RN NOTES PT HAD A BOWEL MOVEMENT AGAIN, STILL SOFT YELLOW STOOL, NO SMELL
[2017-03-31] MEDS: METRONIDAZOLE 500MG/ NS 100ML 500 MG in PREMIX 1 EA IV SCH ×3 (05:20→20:58)
--- NOTE | 2017-03-31 07:00 | NUR ---
RN NOTES AWAKE, MORNING CARE RENDERED, DENIES PAIN, NO SOB, PT. NEEDS ATTENDED
--- NOTE | 2017-03-31 07:20 | NUR ---
RN MS NOTES PATIENT A/OX1-2, NO S/SX OF DISTRESS NOTED, SPO2 98% IN ROOM AIR. NEEDS ATTENDED AND MET, SAFETY MEASURES IN PLACED, CALL LIGHT WITHIN REACH, WILL CONTINUE TO MONITOR.
[2017-03-31] MEDS: ALBUTEROL FS 2.5 MG/0.5 ML VIAL.NEB NEB SCH ×4 (07:57→20:05)
[2017-03-31] MEDS: IPRATROPIUM NEB FS 0.5 MG/2.5 ML AMPUL.NEB NEB SCH ×6 (07:57→20:05)
[2017-03-31 08:00] VITALS: BP 135/82
[2017-03-31] MEDS: predniSONE 20 MG TABLET PO SCH (08:19)
[2017-03-31] MEDS: LACTOBACILLUS RHAMNOSUS GG 1 EACH CAP.SPRINK PO SCH ×2 (08:19→17:29)
[2017-03-31] MEDS: PANTOPRAZOLE 40 MG TABLET.DR PO SCH (08:19)
[2017-03-31] MEDS: AMLODIPINE BESYLATE 5 MG TABLET PO SCH (08:19)
[2017-03-31 08:47] LABS: BASOPHILS # (AUTO) 0.2 /CMM (0.0-0.2); BASOPHILS % (AUTO) 1.1 % (0.0-2.0); EOSINOPHILS # (AUTO) 0.5 /CMM (0.0-0.7); EOSINOPHILS % (AUTO) 3.5 % (0.0-6.0); HEMATOCRIT 37 % (39-51); HEMOGLOBIN 12.1 g/dL (13.5-17.5); LYMPHOCYTES # (AUTO) 0.7 /CMM (0.8-4.8); LYMPHOCYTES % (AUTO) 4.6 % (20.0-44.0); MEAN CORPUSCULAR HEMOGLOBIN 32 PG (26.0-33.0); MEAN CORPUSCULAR HGB CONC 33 g/dl (31.0-36.0); MEAN CORPUSCULAR VOLUME 99 fL (80-96); MONOCYTES # (AUTO) 1.3 /CMM (0.1-1.30); MONOCYTES % (AUTO) 8.9 % (2.0-12.0); NEUTROPHILS # (AUTO) 12.5 /CMM (1.8-8.9); NEUTROPHILS % (AUTO) 81.9 % (43.0-81.0); PLATELET COUNT (AUTO) 126 /CMM (150-450); RDW COEFFICIENT OF VARIATION 14.6 (11.5-15.0); RED BLOOD CELL COUNT(AUTO) 3.79 MIL/uL (4.5-6.0); WHITE BLOOD COUNT (AUTO) 15.2 K/uL (4.3-11.0)
[2017-03-31 08:52] LABS: CALCIUM, SERUM 8.3 mg/dL (8.5-10.1); CREATININE 2.3 mg/dL (0.6-1.3)
--- NOTE | 2017-03-31 09:55 | NUR ---
RN MS NOTES PATIENT HAD SOFT YELLOW BM X1. SKIN CARE RENDERED. PATIENT ALERT, ORIENTED X1-2, BREATHING TX DONE. SPO2 98% IN ROOM AIR. WILL CONTINUE TO MONITOR.
[2017-03-31] MEDS: CEFEPIME 2 GM in IV D5W 100 ML IV SCH (14:37)
[2017-03-31] MEDS: IV NS 0.9% 1,000 ML IV PRN (14:40)
[2017-03-31 16:00] VITALS: BP 125/80
--- NOTE | 2017-03-31 18:27 | NUR ---
RN MS NOTES PATIENT REFUSED PT EVAL TODAY. PATIENT ALERT AND ORIENTED X1-2 WITH EPISODE OF CONFUSION. NO S/SX OF RESPIRATORY DISTRESS NOTED, PATIENT HAD A TOTAL OF 3 SOFT LOOSE YELLOW BM, NO FOUL ODOR NOTED. CONTACT PRECAUTION OBSERVED AT ALL TIMES FOR C. DIFF. ALL NEEDS ATTENDED AND MET, CALL LIGHT WITHIN REACH, SAFETY MEASURES IN PLACED, WILL ENDORSE TO MACHINE LEAD BURNER FOR BRYSON.
[2017-03-31 20:00] VITALS: BP 146/68
[2017-04-01] MEDS: VANCOMYCIN HCL 125 MG/2.5 ML ORAL.SUSP PO SCH ×5 (00:16→23:56)
[2017-04-01] MEDS: METOPROLOL TARTRATE 25 MG TABLET PO SCH ×5 (00:20→23:56)
[2017-04-01] MEDS: METRONIDAZOLE 500MG/ NS 100ML 500 MG in PREMIX 1 EA IV SCH ×3 (05:11→21:23)
[2017-04-01 06:41] LABS: BASOPHILS % (AUTO) 0.1 % (0.0-2.0); EOSINOPHILS # (AUTO) 0.3 /CMM (0.0-0.7); EOSINOPHILS % (AUTO) 1.7 % (0.0-6.0); HEMATOCRIT 37 % (39-51); HEMOGLOBIN 12.1 g/dL (13.5-17.5); LYMPHOCYTES # (AUTO) 0.8 /CMM (0.8-4.8); LYMPHOCYTES % (AUTO) 4.2 % (20.0-44.0); MEAN CORPUSCULAR HEMOGLOBIN 32 PG (26.0-33.0); MEAN CORPUSCULAR HGB CONC 33 g/dl (31.0-36.0); MEAN CORPUSCULAR VOLUME 98 fL (80-96); MONOCYTES # (AUTO) 1.6 /CMM (0.1-1.30); MONOCYTES % (AUTO) 8.5 % (2.0-12.0); NEUTROPHILS # (AUTO) 16.4 /CMM (1.8-8.9); NEUTROPHILS % (AUTO) 85.5 % (43.0-81.0); PLATELET COUNT (AUTO) 108 /CMM (150-450); RDW COEFFICIENT OF VARIATION 14.6 (11.5-15.0); RED BLOOD CELL COUNT(AUTO) 3.74 MIL/uL (4.5-6.0); WHITE BLOOD COUNT (AUTO) 19.2 K/uL (4.3-11.0)
[2017-04-01 06:59] LABS: ALBUMIN 2.6 g/dL (3.4-5.0); BILIRUBIN,DIRECT 0.8 mg/dL (0.0-0.2); BILIRUBIN,TOTAL 1.5 mg/dL (0.2-1.0); CALCIUM, SERUM 8.5 mg/dL (8.5-10.1); CREATININE 1.9 mg/dL (0.6-1.3); INR 1.32 (0.87-1.13); POTASSIUM 4.1 mmol/L (3.5-5.1); PROTHROMBIN TIME 13.8 SECS (9.5-12.7); TOTAL PROTEIN, SERUM 7.1 g/dL (6.4-8.2)
--- NOTE | 2017-04-01 07:00 | NUR ---
MS/RN CLOSING NOTES PT RESTING COMFORTABLY IN BED. ON ROOM AIR, BREATHING EVEN AND UNLABORED. DENIES SOB OR PAIN. JOSEPH MIDLINE PATENT AND INTACT. HERNANDEZ IN PLACE AND DRAINING TO GRAVITY. PT HAD X2 BM LAST NIGHT, SOFT YELLOW/BROWN. NO FOUL ODOR. MADE PT COMFORTABLE DURING SHIFT. HEELS OFFLOADED. ASSISTED WITH TURNING AND REPOSITIONING Q2H. SIDE RAILS UPX3 AND BED ALARM ON FOR SAFETY. PT'S DAILY WEIGHT =[id number]. PT REFUSED TO GET OUT OF BED TO ZERO OUT BED TO CHECK FOR ACCURACY. ASKED DAY SHIFT RN TO ZERO OUT BED AND RECHECK WEIGHT. ENDORSED FOR BRYSON.
[2017-04-01 08:00] VITALS: BP 135/87
[2017-04-01] MEDS: IPRATROPIUM NEB FS 0.5 MG/2.5 ML AMPUL.NEB NEB SCH ×4 (08:11→20:25)
[2017-04-01] MEDS: ALBUTEROL FS 2.5 MG/0.5 ML VIAL.NEB NEB SCH ×4 (08:11→20:25)
[2017-04-01] MEDS: AMLODIPINE BESYLATE 5 MG TABLET PO SCH (08:22)
[2017-04-01] MEDS: LACTOBACILLUS RHAMNOSUS GG 1 EACH CAP.SPRINK PO SCH ×2 (08:22→16:01)
[2017-04-01] MEDS: PANTOPRAZOLE 40 MG TABLET.DR PO SCH (08:23)
[2017-04-01] MEDS: predniSONE 20 MG TABLET PO SCH (08:23)
--- NOTE | 2017-04-01 09:00 | NUR ---
RS RN OPENING NOTES PT ON CONTACT PRECAUTIONS R/T: C.DIFF. PT A&0X2 AND RESTING LOW SEMI FOWLERS WITH BED IN LOWEST LOCKED POSITION, HANDRAILSX2 AND CALL IGLESIAS WITHIN REACH. PT TOLERATING ROOM AIR WITH 02SAT 97%. PT BOWEL SOUNDS ACTIVE IN ALL 4QUADS. PT FREQUENTLY WIMPERING/SHRIEKING BUT REPORTS NO PAIN OR CONCERNS AND IS WITHOUT OTHER S/S OF DISTRESS. RIGHT UA MIDLINE INTACT AND OPERATIONAL. PT WITHOUT CONCERNS OR COMPLAINTS AT THIS TIME. WILL CONTINUE TO MONITOR.
--- NOTE | 2017-04-01 09:15 | NUR ---
MS/RN BM One small BM, soft but not diarrhea.
--- NOTE | 2017-04-01 09:30 | NUR ---
MS RN NOTES PT CONTACT PRECAUTIONS R/T: C.DIFF REMOVED. PT MOVED TO BED 202. UNIVERSAL PRECAUTIONS REMAIN.
--- NOTE | 2017-04-01 10:00 | NUR ---
MS/RN Labs Morning labs reviewed: -WBC 19.2 -BUN 54 -Creat 1.9
--- NOTE | 2017-04-01 11:00 | NUR ---
MS/RN S/B Dr Elena Seen by Dr Elena - continue with gentle hydration.
--- NOTE | 2017-04-01 13:50 | NUR ---
MS RN NOTES PT RESTING IN BED. PT WITHOUT CONCERNS OR COMPLAINTS AT THIS TIME
--- NOTE | 2017-04-01 14:00 | NUR ---
MS/RN S/B GI Seen by GI - consider EGD and colonoscopy. Continue to monitor H&H.
[2017-04-01] MEDS: CEFEPIME 2 GM in IV D5W 100 ML IV SCH (15:58)
[2017-04-01 16:00] VITALS: BP 119/84
--- NOTE | 2017-04-01 16:25 | NUR ---
MS/RN BM One BM, soft, but not diarrhea.
--- NOTE | 2017-04-01 17:50 | NUR ---
MS RN CLOSING NOTES PT A&0X2, RESTING WITH BED IN LOWEST LOCKED POSITION, HANDRAILSX2 AND CALL IGLESIAS WITHIN REACH. PT TOLERATING ROOM AIR WITH NO SOB. PT MAKING FREQUENT SHRIEKS AND WIMPERS BUT DENIES PAIN OR DISCOMFORT. PT WITH R UA G#18 MIDLINE INTACT AND OPERATIONAL. HERNANDEZ CATH INTACT AND OPERATIONAL. ALL DAY NURSE DUTIES ATTENDED TO AND THE PT IS WITHOUT CONCERN OR COMPLAINT AT THIS TIME. WILL ENDORSE TO NIGHT NURSE.
--- NOTE | 2017-04-01 19:30 | NUR ---
RN NOTE; RECEIVED PT IN BED AWAKE AND RESPONSIVE, OX2. BREATHING EVENLY. NO SOB. NAD. SKIN WARM AND DRY. NO C/O PAIN OR DISCOMFORT. JOSEPH MID LINE IN PLACE AND IVF HYDRATION JYOTHI WELL. F/C IN PLACE DRAINING CLEAR YELLOW URINE. NEEDS ATTENDED. CALL LIGHT WITHIN REACH. WILL CONT TO MONITOR,
[2017-04-01 20:00] VITALS: BP 138/75
[2017-04-02] MEDS: METRONIDAZOLE 500MG/ NS 100ML 500 MG in PREMIX 1 EA IV SCH ×3 (04:51→20:47)
[2017-04-02] MEDS: METOPROLOL TARTRATE 25 MG TABLET PO SCH ×4 (06:02→23:30)
[2017-04-02] MEDS: VANCOMYCIN HCL 125 MG/2.5 ML ORAL.SUSP PO SCH ×3 (06:02→17:17)
--- NOTE | 2017-04-02 06:25 | NUR ---
RN NOTE; PT IN BED AWAKE AND ALERT W/ EPISODES OF ANXIETY. VERY POOR SLEEP PATTERN LESS THAN TWO HOURS OF SLEEP FOR THE WHOLE NIGHT. CONSTANT MOANING AND RESTLESS HOWEVER DENIED ANY PAIN OR DISCOMFORT. W/ 4 EPISODES OF DIARRHEA. WAS PLACED BACK ON ISOLATION. ON ONGOING IVF HYDRATION. JYOTHI WELL . IV MIDLINE ON JOSEPH INTACT AND PATENT W/ GOOD BLOOD DRAW . F/C IN PLACE DRAINING CLEAR YELLOW URINE. NOTED W/ SCROTAL/ PENILE EDEMA. WILL ENDORSE TO AM SHIFT TO INFORM MD IN AM. NEEDS ATTENDED. GOOD SKIN CARE AND SARAI CARE RENDERED. CLEANED AND DRIED. BED LOW LOCKED. CALL LIGHT WITHIN REACH,. WILL CONT TO MONITOR AND WILL ENDORSE TO AM SHIFT FOR BRYSON.
--- NOTE | 2017-04-02 07:36 | NUR ---
MS RN OPENING NOTE PATIENT IS ALERT AND ORIENTED x2. NO PAIN AT THIS TIME. NO SOB OR DISTRESS NOTED. CALL LIGHT WITHIN REACH. SAFETY MEASURES IMPLEMENTED. ABLE TO COMMUNICATE NEEDS. HERNANDEZ CATHETER IN PLACE AND DRAINING RENAL DIET. RIGHT UPPER ARM MIDLINE INTACT AND PATENT, NO REDNESS NOTED. GENERALIZED EDEMA. IV FLUIDS RUNNING AT 80 ML/HR NS AT THIS TIME. ON ISOLATION PRECAUTIONS AT THIS TIME FOR C.DIFF. WILL CONTINUE TO MONITOR
[2017-04-02 08:00] VITALS: BP_SYST 136; BP_DIAS 70; BP_DIAS 76
--- NOTE | 2017-04-02 08:00 | NUR ---
MS RN NOTE UPON PATIENT ASSESSMENT NOTED THAT PATIENT HAD WHITE DISCHARGE NOTED AT TIP OF PENIS, NONE NOTED IN CATHETER MADE MD AWARE
[2017-04-02] MEDS: ALBUTEROL FS 2.5 MG/0.5 ML VIAL.NEB NEB SCH ×4 (08:31→19:58)
[2017-04-02] MEDS: IPRATROPIUM NEB FS 0.5 MG/2.5 ML AMPUL.NEB NEB SCH ×4 (08:31→19:58)
[2017-04-02] MEDS: AMLODIPINE BESYLATE 5 MG TABLET PO SCH (08:40)
[2017-04-02] MEDS: PANTOPRAZOLE 40 MG TABLET.DR PO SCH (08:40)
[2017-04-02] MEDS: predniSONE 20 MG TABLET PO SCH (08:40)
[2017-04-02] MEDS: LACTOBACILLUS RHAMNOSUS GG 1 EACH CAP.SPRINK PO SCH ×2 (08:40→17:00)
[2017-04-02 11:41] LABS: BASOPHILS % (AUTO) 0.1 % (0.0-2.0); EOSINOPHILS # (AUTO) 0.3 /CMM (0.0-0.7); EOSINOPHILS % (AUTO) 1.7 % (0.0-6.0); HEMATOCRIT 41 % (39-51); HEMOGLOBIN 12.9 g/dL (13.5-17.5); LYMPHOCYTES # (AUTO) 0.8 /CMM (0.8-4.8); LYMPHOCYTES % (AUTO) 4.8 % (20.0-44.0); MEAN CORPUSCULAR HEMOGLOBIN 32 PG (26.0-33.0); MEAN CORPUSCULAR HGB CONC 32 g/dl (31.0-36.0); MEAN CORPUSCULAR VOLUME 99 fL (80-96); MONOCYTES # (AUTO) 1.2 /CMM (0.1-1.30); MONOCYTES % (AUTO) 7.8 % (2.0-12.0); NEUTROPHILS # (AUTO) 13.5 /CMM (1.8-8.9); NEUTROPHILS % (AUTO) 85.6 % (43.0-81.0); PLATELET COUNT (AUTO) 123 /CMM (150-450); RDW COEFFICIENT OF VARIATION 14.8 (11.5-15.0); RED BLOOD CELL COUNT(AUTO) 4.07 MIL/uL (4.5-6.0); WHITE BLOOD COUNT (AUTO) 15.8 K/uL (4.3-11.0)
--- NOTE | 2017-04-02 12:00 | NUR ---
MS RN NOTE PER DISTRICT PLANT ENGINEER, DANIEL OKAY TO REMOVE HERNANDEZ CATHETER AND STOP FLUIDS. HERNANDEZ REMOVED, NO PAIN NOTED UPON REMOVAL. WILL CONTINUE TO MONITOR
[2017-04-02] MEDS: CEFEPIME 2 GM in IV D5W 100 ML IV SCH (15:06)
[2017-04-02 16:00] VITALS: BP 104/62
--- NOTE | 2017-04-02 18:29 | NUR ---
MS RN CLOSING NOTE PATIENT IS ALERT AND ORIENTED x2. NO PAIN AT THIS TIME. NO SOB OR DISTRESS NOTED. CALL LIGHT WITHIN REACH AT ALL TIMES. HAD 4 EPISODES OF LOOSE BM TODAY, MD AWARE. IV INTACT AND PATENT, NO FLUIDS RUNNING AT THIS TIME. ABLE TO COMMUNICATE NEEDS. AWAITING FOR PLACEMENT UPON DISCHARGE. WILL ENDORSE TO SUGAR MILL WORKER FOR BRYSON
[2017-04-02 20:00] VITALS: BP 138/92
[2017-04-02] MEDS ORDERED: ZOLPIDEM TARTRATE 10 MG TABLET ONE (23:28)
[2017-04-02] MEDS: ZOLPIDEM TARTRATE 10 MG TABLET PO PRN (23:29)
[2017-04-03] MEDS: METRONIDAZOLE 500MG/ NS 100ML 500 MG in PREMIX 1 EA IV SCH ×4 (04:59→21:00)
[2017-04-03] MEDS: METOPROLOL TARTRATE 25 MG TABLET PO SCH ×4 (05:52→23:20)
[2017-04-03] MEDS: VANCOMYCIN HCL 125 MG/2.5 ML ORAL.SUSP PO SCH ×5 (05:53→23:21)
--- NOTE | 2017-04-03 06:00 | NUR ---
MS RN NOTES PT HAD SOFT BM. NO DIARRHEA DURING PSYCHIATRIC LPN.
--- NOTE | 2017-04-03 06:20 | NUR ---
MS RN NOTES AWAKE & RESPONSIVE. WITH PERIODS OF CONFUSION. NOT IN ANY DISTRESS. NO SOB NOTED. DENIES ANY PAIN OR DISCOMFORT AT THIS TIME. WITH MIDLINE PATENT & INTACT. AM CARE DONE. MONITORED ACCORDINGLY. CALL LIGHT WITHIN REACH. BED IN LOWEST POSITION. SR UP X3 WITH BED ALARM ON FOR SAFETY. WILL ENDORSE TO NEXT SHIFT.
--- NOTE | 2017-04-03 07:14 | NUR ---
MS/RN Patient received Patient received from production supervisor off shift, no needs expressed. RT at bedside for scheduled breathin treatment. Will continue to monitor.
[2017-04-03] MEDS: ALBUTEROL FS 2.5 MG/0.5 ML VIAL.NEB NEB SCH ×4 (07:15→19:57)
[2017-04-03] MEDS: IPRATROPIUM NEB FS 0.5 MG/2.5 ML AMPUL.NEB NEB SCH ×4 (07:15→19:57)
[2017-04-03 08:00] VITALS: BP 118/88
[2017-04-03 08:05] VITALS: BP 101/78
[2017-04-03] MEDS: predniSONE 20 MG TABLET PO SCH (08:19)
[2017-04-03] MEDS: PANTOPRAZOLE 40 MG TABLET.DR PO SCH (08:19)
[2017-04-03] MEDS: LACTOBACILLUS RHAMNOSUS GG 1 EACH CAP.SPRINK PO SCH ×2 (08:20→17:00)
[2017-04-03] MEDS: AMLODIPINE BESYLATE 5 MG TABLET PO SCH (08:20)
--- NOTE | 2017-04-03 08:30 | NUR ---
MS/RN BM One soft bowel movement, not diarrhea.
--- NOTE | 2017-04-03 11:00 | NUR ---
MS/RN BM One soft bowel movement, not diarrhea.
--- NOTE | 2017-04-03 12:36 | NUR ---
MS/RN S/B GI Seen by GI - no new orders.
[2017-04-03] MEDS: CEFEPIME 2 GM in IV D5W 100 ML IV SCH (15:02)
--- NOTE | 2017-04-03 15:06 | NUR ---
MS/RN S/B Elías Marie DEPUTY K 9 Seen by DEPUTY K 9 - vancomycin discontinued, labs ordered for tomorrow. If WBC continues to trend down, all other IVAB to be changed to oral.
[2017-04-03 16:00] VITALS: BP 128/80
[2017-04-03 16:24] VITALS: BP 128/80
--- NOTE | 2017-04-03 18:41 | NUR ---
MS/RN End note No changes in care. Patient becoming increasingly confused as the evening has gone on, reoriented to surroundings. Bed alarm switched on. All medications administered as ordered, will endorse to rn shift mgr.
--- NOTE | 2017-04-03 19:15 | NUR ---
MS RN NOTES RECEIVED ON BED A/O X 2,ABLE TO VERBALIZED NEEDS.RIGHT UPPER ARM MIDLINE INTACT AND PATENT.ISOLATION PRECAUTION FOR C-DIFF.CALL LIGHT IN REACH,NEEDS ANTICIPATED.
[2017-04-03 19:58] VITALS: BP 146/95
[2017-04-03 20:04] VITALS: BP 146/95
--- NOTE | 2017-04-03 21:00 | NUR ---
MS RN NOTES PATIENT PULLED OUT MID LINE,NURSING PASTA PRESS OPERATOR NOTIFIES IF MID LINER CAN COME TO PUT A NEW LINE BUT SHE SAID SHE ALREADY CALLED BUT NO ONE IS AVAILABLE TONIGHT.
--- NOTE | 2017-04-03 21:16 | NUR ---
MS RN NOTES DR LIN RURAL ELECTRIFICATION ENGINEER MD IMANI SALINAS MADE AWARE,SHE CONVERTED FLAGYL IV TO PO FOR NOW,NOTED AND CARRIED OUT.
[2017-04-03] MEDS ORDERED: METRONIDAZOLE 500 MG TABLET ONE (21:29)
[2017-04-03] MEDS: METRONIDAZOLE 500 MG TABLET PO SCH (21:33)
--- NOTE | 2017-04-03 21:35 | NUR ---
MS RN NOTES STARTED ON PO FLAGYL 500MG ORDERED.NEGATIVE FOR ASPIRATION.
[2017-04-03] MEDS: ZOLPIDEM TARTRATE 10 MG TABLET PO PRN (23:20)
--- NOTE | 2017-04-03 23:20 | NUR ---
MS RN NOTES STILL AWAKE,MEDICATED WITH AMBIEN 10MG PO FOR INSOMNIA.
--- NOTE | 2017-04-04 03:00 | NUR ---
MS RN NOTES SLEEPING AT THIS TIME,MOANS AT TIMES
[2017-04-04] MEDS ORDERED: METRONIDAZOLE 500 MG TABLET ONE (05:31)
[2017-04-04] MEDS: METRONIDAZOLE 500 MG TABLET PO SCH ×3 (05:48→20:54)
[2017-04-04] MEDS: VANCOMYCIN HCL 125 MG/2.5 ML ORAL.SUSP PO SCH ×4 (05:49→23:46)
[2017-04-04] MEDS: METOPROLOL TARTRATE 25 MG TABLET PO SCH ×4 (05:49→23:46)
--- NOTE | 2017-04-04 06:00 | NUR ---
MS RN NOTES DUE PO MEDS ADMINISTERED,NEGATIVE FOR ASPIRATION
--- NOTE | 2017-04-04 06:22 | NUR ---
MS RN NOTES NO IV ACCESS,MD LIN AWARE.NO EPISODE OF SOB NOTED.BREATHING TREATMENT TOLERATED WELL.ABLE TO REPOSITION SELF.CALL LIGHT IN REACH,NEEDS ATTENDED.IN NO ACUTE DISTRESS.WILL ENDORSE TO DAY NURSE FOR BRYSON.
[2017-04-04] MEDS: ALBUTEROL FS 2.5 MG/0.5 ML VIAL.NEB NEB SCH ×4 (07:27→19:46)
[2017-04-04] MEDS: IPRATROPIUM NEB FS 0.5 MG/2.5 ML AMPUL.NEB NEB SCH ×4 (07:27→19:46)
[2017-04-04 08:00] VITALS: BP 143/101
--- NOTE | 2017-04-04 08:50 | NUR ---
MS RN RECEIVED ON BED, AWAKE,CONFUSED AT TIMES, NOT IN ANY FORM OF DISTRESS, RESPIRATIONS EVEN AND UNLABORED,NO SOB NOTED. LUNGS ARE CLEAR,ABDOMEN SOFT,POSITIVE BOWEL SOUNDS, DENIES PAIN AT THIS TIME, WILL MONITOR PATIENT'S CONDITION.
--- NOTE | 2017-04-04 09:10 | NUR ---
MS RN WAS SEEN BY DANIEL STODDARD, NO ORDER AT THIS TIME.
--- NOTE | 2017-04-04 09:20 | NUR ---
MS MERINO BREAKFAST SERVED, DUE MEDS GIVEN,TOLERATED WELL.
[2017-04-04] MEDS: predniSONE 20 MG TABLET PO SCH (09:42)
[2017-04-04] MEDS: PANTOPRAZOLE 40 MG TABLET.DR PO SCH (09:42)
[2017-04-04] MEDS: LACTOBACILLUS RHAMNOSUS GG 1 EACH CAP.SPRINK PO SCH ×2 (09:42→16:58)
[2017-04-04] MEDS: AMLODIPINE BESYLATE 5 MG TABLET PO SCH (09:44)
--- NOTE | 2017-04-04 11:00 | NUR ---
MS RN WAS SEEN BY DR. SANCHEZ,NO ORDER AT THIS TIME.
[2017-04-04 11:12] LABS: BASOPHILS # (AUTO) 0.1 /CMM (0.0-0.2); BASOPHILS % (AUTO) 0.5 % (0.0-2.0); EOSINOPHILS # (AUTO) 0.3 /CMM (0.0-0.7); EOSINOPHILS % (AUTO) 1.6 % (0.0-6.0); HEMATOCRIT 36 % (39-51); HEMOGLOBIN 11.5 g/dL (13.5-17.5); LYMPHOCYTES # (AUTO) 1.2 /CMM (0.8-4.8); MEAN CORPUSCULAR HEMOGLOBIN 32 PG (26.0-33.0); MEAN CORPUSCULAR HGB CONC 32 g/dl (31.0-36.0); MEAN CORPUSCULAR VOLUME 99 fL (80-96); MONOCYTES # (AUTO) 1.5 /CMM (0.1-1.30); MONOCYTES % (AUTO) 9.8 % (2.0-12.0); NEUTROPHILS # (AUTO) 12.5 /CMM (1.8-8.9); NEUTROPHILS % (AUTO) 80.1 % (43.0-81.0); PLATELET COUNT (AUTO) 136 /CMM (150-450); RDW COEFFICIENT OF VARIATION 14.9 (11.5-15.0); RED BLOOD CELL COUNT(AUTO) 3.61 MIL/uL (4.5-6.0); WHITE BLOOD COUNT (AUTO) 15.6 K/uL (4.3-11.0)
[2017-04-04 11:14] LABS: CALCIUM, SERUM 8.6 mg/dL (8.5-10.1); CREATININE 1.7 mg/dL (0.6-1.3); POTASSIUM 4.1 mmol/L (3.5-5.1)
--- NOTE | 2017-04-04 14:00 | NUR ---
MS RN ASK DANIEL RODAS IF HE CAN SWITCH ATB TO PO, BUT WAS TOLD TO REINSERT ANOTHER MIDLINE.
--- NOTE | 2017-04-04 15:00 | NUR ---
MS RN TRIED TO INSERT IV BUT UNSUCCESSFUL.
--- NOTE | 2017-04-04 15:30 | NUR ---
MS WILBER MARIE FROM ER, TRIED TO INSERT ONE BUT CANNOT GET IT.
[2017-04-04 16:00] VITALS: BP 146/93
--- NOTE | 2017-04-04 16:00 | NUR ---
MS RN CALLED ORAL CODE NUMBER STAMPER THAT CANNOT ABLE TO INSERT IV HEPLOCK, ER STAFF TRIED ONE, WILL TEXT THEM.
--- NOTE | 2017-04-04 18:20 | NUR ---
MS WILBER MACIAS ORAL IF [facility] IS COMING, WAS TOLD THAT SHE TEXT THEM.
--- NOTE | 2017-04-04 18:42 | NUR ---
MS RN STILL CONFUSED, NO DISTRESS NOTED.
--- NOTE | 2017-04-04 19:05 | NUR ---
MS RN OPENING NOTES: RECEIVED PT LAYING DOWN IN BED WATCHING TELEVISION. PT IS A/OX2. PT DENIES ANY PAIN. RESPIRATIONS EVEN AND UNLABORED. NO SOB NOTED. PT HAS NO IV AT THIS TIME. WILL LATE ADMIN IV ONCE ABLE TO GET IV ACCESS. CALL LIGHT WITHIN PT'S REACH. BED KEPT IN LOW, LOCKED POSITION, AND SIDE RAILS X 2UP. WILL CONTINUE TO MONITOR PT.
[2017-04-04 20:00] VITALS: BP 141/95
[2017-04-04] MEDS: CEFEPIME 2 GM in IV D5W 100 ML IV SCH (20:54)
--- NOTE | 2017-04-04 20:54 | NUR ---
MS RN NOTES: LATE ADMIN FOR MAXIPIME IV D/T NO IV ACCESS. WAS NOT ABLE TO GET MIDLINE INSERTION. WAS ABLE TO GET ICU NURSE TO START IV ON RIGHT EXTERNAL JUGULAR SITE.
[2017-04-05] MEDS: VANCOMYCIN HCL 125 MG/2.5 ML ORAL.SUSP PO SCH ×4 (05:27→17:21)
[2017-04-05] MEDS: METOPROLOL TARTRATE 25 MG TABLET PO SCH ×3 (05:27→17:20)
[2017-04-05] MEDS: METRONIDAZOLE 500 MG TABLET PO SCH ×3 (05:27→20:15)
--- NOTE | 2017-04-05 06:36 | NUR ---
MS RN CLOSING NOTES: ALL NEEDS WERE ATTENDED AND ANTICIPATED FOR. PT IS LAYING DOWN IN BED SEMI-HOLLINGSWORTH'S WITH 2LPM VIA NC FOR COMFORT MEASURES. PT IS A/OX 1-2 WITH CONFUSION. THROUGHOUT SHIFT, PT IS MUMBLING OUT LOUD AND HAVING AUDITORY HALLUCINATIONS. PT REORIENTED SEVERAL TIMES. URINAL OUTPUT WAS 1200ML. PT DENIES ANY PAIN. RESPIRATIONS EVEN AND UNLABORED. NO SOB NOTED. PT HAS NO IV AT THIS TIME. PT HAS IV ON R EXTERNAL JUGULAR #18G AND IS PATENT AND INTACT. PT CURRENTLY S/L. CALL LIGHT WITHIN PT'S REACH. BED KEPT IN LOW, LOCKED POSITION, AND SIDE RAILS X 2UP. WILL ENDORSE TO AM NURSE FOR BRYSON.
--- NOTE | 2017-04-05 07:15 | NUR ---
RN INITIAL NOTES: RECEIVED PATIENT RESTING IN CHAIR. PATIENT ALERT ORIENTED X2, CONFUSED. NONLABORED BREATHING ON ROOM AIR. PATIENT DENIES PAIN. NO FACIAL GRIMACING NOTED. IV SITE PATENT AND INTACT. IV SITE PATENT AND INTACT. CALL LIGHT WITHIN REACH. PATIENT EDUCATED ON THE USAGE OF CALL LIGHT. FALL PRECAUTIONS IMPLEMENTED. PATIENT VERBALIZED UNDERSTANDING. WILL CONTINUE TO MONITOR
[2017-04-05] MEDS: IPRATROPIUM NEB FS 0.5 MG/2.5 ML AMPUL.NEB NEB SCH ×4 (07:19→19:40)
[2017-04-05] MEDS: ALBUTEROL FS 2.5 MG/0.5 ML VIAL.NEB NEB SCH ×4 (07:19→19:40)
[2017-04-05 08:00] VITALS: BP 133/95
[2017-04-05] MEDS: PANTOPRAZOLE 40 MG TABLET.DR PO SCH (08:28)
[2017-04-05] MEDS: AMLODIPINE BESYLATE 5 MG TABLET PO SCH (08:28)
[2017-04-05] MEDS: LACTOBACILLUS RHAMNOSUS GG 1 EACH CAP.SPRINK PO SCH ×2 (08:28→17:19)
[2017-04-05] MEDS: predniSONE 20 MG TABLET PO SCH (08:30)
--- NOTE | 2017-04-05 11:00 | NUR ---
RN NOTES: PATIENT NOTED MUMBLING SINCE BEGINNING OF SHIFT. NO SIGNS OF DISTRESS NOTED. NONLABORED BREATHING NOTED. PATIENT DENIES AUDITORY AND DENIES VISUAL HALLUCINATIONS WHEN ASSESSED. DANIEL RODAS NP, AWARE.
--- NOTE | 2017-04-05 11:00 | NUR ---
RN NOTES: SPOKE WITH DANIEL RODAS NP, REGARDING MIDLINE INSERTION. HE STATED THAT IT IS NOT NEEDED AT THE MOMENT SINCE A PERIPHERAL IV WAS STARTED IN RT EXTERNAL JUGULAR #18G
--- NOTE | 2017-04-05 15:11 | NUR ---
RN NOTES: SPOKE WITH GÉNESIS FROM PHARMACY REGARDING ANTIBIOTICS SCHEDULED AT 1500. ANTIBIOTICS TO BE RESCHEDULED BY PHARMACY FOR 2100 DUE TO ORDERS OF Q24 HOURS
[2017-04-05 16:00] VITALS: BP 132/96
--- NOTE | 2017-04-05 18:24 | NUR ---
RN NOTES: PATIENT HAD ONE LOOSE BOWEL MOVEMENT, STOOL NOT FORMED. LIGHT BROWN/ORANGISH STOOL IN MODERATE AMOUNT. DENIES ABDOMINAL PAIN AT THE MOMENT
--- NOTE | 2017-04-05 18:39 | NUR ---
RN CLOSING NOTES: RECEIVED PATIENT RESTING IN CHAIR. PATIENT ALERT ORIENTED X2, CONFUSED. NONLABORED BREATHING ON ROOM AIR. PATIENT DENIES PAIN AT THE MOMENT. NO FACIAL GRIMACING NOTED. PATIENT NOT MOANING AT THE MOMENT. IV SITE PATENT AND INTACT, EXTERNAL JUGULAR, 18. CALL LIGHT WITHIN REACH. PATIENT EDUCATED ON THE USAGE OF CALL LIGHT. FALL PRECAUTIONS IMPLEMENTED. PATIENT VERBALIZED UNDERSTANDING. DURING SHIFT, PATIENT TURNED AND REPOSITIONED EVERY 2 HOURS. PATIENT KEPT CLEAN AND DRY. PATIENT AFEBRILE. WILL ENDORSE TO NEXT SHIFT
--- NOTE | 2017-04-05 19:42 | NUR ---
RN NOTES PATIENT IN BED, ALERT AND ORIENTED X2, ABLE TO VERBALIZE NEEDS, CALM AT THIS TIME, WITH EPISODE OF MOANING AND YELLING FOR HELP, TOLERATING ROOM AIR, SPO2 98%, DENIES ANY PAIN AT THIS TIME, RIGHT IJ SALINE LOCK IS PATENT AND SECURED WITH DRESSING, COMPLIANT AND COOPERATIVE WITH CARE, ON C-DIFF CONTACT ISOLATION. KEPT SAFE AND COMFORTABLE, CALL LIGHT WITHIN REACH.
[2017-04-05 20:00] VITALS: BP 139/83
[2017-04-05] MEDS ORDERED: CEFEPIME 2 GM in IV D5W 100 ML IV SCH (21:00)
[2017-04-06] MEDS: METOPROLOL TARTRATE 25 MG TABLET PO SCH ×5 (00:10→23:50)
[2017-04-06] MEDS: VANCOMYCIN HCL 125 MG/2.5 ML ORAL.SUSP PO SCH ×5 (00:10→23:50)
[2017-04-06] MEDS: ALBUTEROL FS 2.5 MG/0.5 ML VIAL.NEB NEB SCH ×4 (06:51→19:30)
[2017-04-06] MEDS: IPRATROPIUM NEB FS 0.5 MG/2.5 ML AMPUL.NEB NEB SCH ×4 (06:51→19:30)
--- NOTE | 2017-04-06 06:54 | NUR ---
RN NOTES \ PATIENT IS ALERT AND AWAKE, NO SOB, TOLERATING ROOM AIR, SP02 96%, DENIES ANY PAIN AT THIS TIME, RIGHT IJ SALINE LOCK IS PATENT AND SECURED WITH TAPE, COMPLIANT WITH TREATMENT AND MEDICATION, ON C-DIFF CONTACT ISOLATION. ABLE TO AMBULATE TO THE TOILET, HAD X6 BM, ALL SOFT AND YELLOW. ALL DUE MEDICATIONS GIVEN, CALL LIGHT WITHIN REACH
--- NOTE | 2017-04-06 07:32 | NUR ---
RN NOTES PATIENT RESTING IN BED. NONLABORED BREATHING NOTED ON ROOM AIR. NO SIGNS OF DISTRESS. PATIENT DENIES PAIN AT THE MOMENT. PATIENT ALERT ORIENTEDX2, CONFUSED. NO FACIAL GRIMACING NOTED. IV SITE PATENT AND INTACT. BED IN LOWEST LOCKED POSITION. CALL LIGHT WITHIN REACH.WILL CONTINUE TO MONITOR
[2017-04-06 08:00] VITALS: BP 152/98
[2017-04-06] MEDS: LACTOBACILLUS RHAMNOSUS GG 1 EACH CAP.SPRINK PO SCH ×2 (08:09→18:01)
[2017-04-06] MEDS: PANTOPRAZOLE 40 MG TABLET.DR PO SCH (08:12)
[2017-04-06] MEDS: predniSONE 20 MG TABLET PO SCH (08:12)
[2017-04-06] MEDS: AMLODIPINE BESYLATE 5 MG TABLET PO SCH (08:13)
[2017-04-06 16:00] VITALS: BP 139/96
--- NOTE | 2017-04-06 18:45 | NUR ---
RN NOTES PATIENT RESTING IN BED. NONLABORED BREATHING NOTED ON ROOM AIR. NO SIGNS OF DISTRESS. PATIENT DENIES PAIN AT THE MOMENT. PATIENT ALERT ORIENTEDX3, WITH PERIODS OF CONFUSION. NO FACIAL GRIMACING NOTED. IV SITE PATENT AND INTACT. BED IN LOWEST LOCKED POSITION. CALL LIGHT WITHIN REACH. PATIENT HAD 1 FORMED BOWEL MOVEMENT. NO NAUSEA OR VOMITTING DURING SHIFT. NO SUICIDAL IDEATION. WILL ENDORSE TO NEXT SHIFT
--- NOTE | 2017-04-06 19:30 | NUR ---
rn note; RECEIVED PT IN BED DOZING INTERMITTENTLY. BREATHING EVENLY. NO SOB. NAD. SKIN WARM AND DRY. NO S/S OR C/O PAIN OR DISCOMFORT. ON CLOSE ,MONITORING FOR FALL . NEEDS ATTENDED . BED LOW LOCKED. BED ALARM ON. CALL LIGHT WITHIN REACH. WILL CONT TO MONITOR .
[2017-04-06 20:00] VITALS: BP 144/91
[2017-04-06] MEDS: ZOLPIDEM TARTRATE 10 MG TABLET PO PRN (23:53)
--- NOTE | 2017-04-06 23:53 | NUR ---
AMBIEN 10MG GIVEN ORDERED PER PT'S REQUEST FOR C/O INSOMNIA. WILL CONT TO MONITOR,
[2017-04-07] MEDS: VANCOMYCIN HCL 125 MG/2.5 ML ORAL.SUSP PO SCH ×3 (05:21→17:06)
[2017-04-07] MEDS: METOPROLOL TARTRATE 25 MG TABLET PO SCH ×3 (05:21→17:06)
--- NOTE | 2017-04-07 07:26 | NUR ---
RN NOTE; PT IN BED DOZING INTERMITTENTLY. BREATHING EVENLY. NO ACUTE EVENT DURING THE NIGHT. PT HAD 2 FORMED BM. NO DIARRHEA EPISODE. ASSISTED W/ ADLS. NEEDS ATTENDED. CALL LIGHT WITHIN REACH, REPORT GIVEN TO PRETTY FOR [facility].
--- NOTE | 2017-04-07 07:48 | NUR ---
MS RN: INITIAL NOTE RECEIVED PT A/OX2-3. HAD 2X FORMED STOOLS PER MDS NURSE. NO DIARRHEA. BRP. AMBULATES WITH WALKER. NO DISTRESS NOTED. NO SOB NOTED. NO PAIN NOTED. ON RENAL DIET. R JUGULAR #18 HL. NO IV FLUIDS RUNNING. ON CONTACT ISOLATION FOR C.DIFF. RESTING COMFORTABLY IN BED. CALL LIGHT WITHIN REACH.
[2017-04-07] MEDS: IPRATROPIUM NEB FS 0.5 MG/2.5 ML AMPUL.NEB NEB SCH ×4 (08:11→19:30)
[2017-04-07] MEDS: ALBUTEROL FS 2.5 MG/0.5 ML VIAL.NEB NEB SCH ×4 (08:11→19:30)
[2017-04-07] MEDS: PANTOPRAZOLE 40 MG TABLET.DR PO SCH (08:34)
[2017-04-07] MEDS: AMLODIPINE BESYLATE 5 MG TABLET PO SCH (08:34)
[2017-04-07] MEDS: predniSONE 20 MG TABLET PO SCH (08:35)
[2017-04-07] MEDS: LACTOBACILLUS RHAMNOSUS GG 1 EACH CAP.SPRINK PO SCH ×2 (08:35→17:05)
[2017-04-07 08:41] VITALS: BP 157/98
[2017-04-07 16:28] VITALS: BP 156/108
--- NOTE | 2017-04-07 18:45 | NUR ---
MS RN:: CLOSING NOTE PT A/OX2-3. TOOK ALL MEDICATIONS ON TIME. REFUSED VANCOMYCIN AT NIGHT. ALL RISKS AND BENEFITS EXPLAINED. BRP WITH ASSIST. HAD 2X FORMED STOOLS. ON CONTACT ISOLATION FOR C.DIFF. R EX JUGULAR IV #18 HL. SITE CLEAR AND PATENT. ALREADY D/C. AWAITING FOR BROTHER TO PICK HIM UP. PAPER WORK NEEDS TO BE SIGNED. WILL ENDORSE TO NEXT SHIFT. RESTING COMFORTABLY IN BED. CALL LIGHT WITHIN REACH.
--- NOTE | 2017-04-07 19:34 | NUR ---
RT PT REFUSED TX AT THIS TIME. NO SOB OR RESP DISTRESS NOTED.
[2017-04-07 20:00] VITALS: BP 140/89
--- NOTE | 2017-04-07 20:00 | NUR ---
RN OPENING NOTES PATIENT IS IN BED, ALERT AND ORIENTED X2-3, EASY TO AROUSE. VS STABLE. RESPIRATIONS EVEN AND UNLABORED. NO SOB NOTED. NO C/O PAIN AT THIS TIME. IV ACCESS ON R JUGULAR #18 HL PATENT AND INTACT, FLUSHING WELL WITH NS. PATIENT IS READY TO D/C HOME. AWAITING FOR CALL FROM THE BROTHER. BED IN LOW AND LOCKED POSITION. SIDE RAILSX2. CALL LIGHT WITHIN EASY REACH. CONTINUE TO MONITOR.
[2017-04-07] MEDS: ZOLPIDEM TARTRATE 10 MG TABLET PO PRN (22:32)
--- NOTE | 2017-04-07 22:35 | NUR ---
RN NOTES GAVE AMBIEN 10 MG PER PATIENT REQUEST. CONTINUE TO MONITOR.
[2017-04-08] MEDS: VANCOMYCIN HCL 125 MG/2.5 ML ORAL.SUSP PO SCH ×3 (00:43→12:37)
[2017-04-08] MEDS: METOPROLOL TARTRATE 25 MG TABLET PO SCH ×3 (00:43→12:37)
--- NOTE | 2017-04-08 07:15 | NUR ---
RN CLOSING NOTES PATIENT IS IN BED, ALERT AND ORIENTED X2-3, EASY TO AROUSE, AGITATED. BP 160/113. PATIENT REFUSED MORNING MEDICATIONS. RESPIRATIONS EVEN AND UNLABORED. PATIENT IS READY TO D/C HOME. AWAITING FOR THE BROTHER TO PICK HIM UP. EXIT CARE DONE, IV REMOVED, DISCHARGE INSTRUCTIONS PROVIDED. BED IN LOW AND LOCKED POSITION. SIDE RAILSX2. WILL ENDORSE TO RN DAY SHIFT FOR CONTINUITY OF CARE.
--- NOTE | 2017-04-08 07:40 | NUR ---
RN OPENING NOTES RECEIVED PT. IN BED A&OX3 ON ISOLATION FOR C DIFF. BREATHING ON ROOM AIR UNLABORED, AND EVENLY. NO S/S OF ACUTE DISTRESS. BED IS IN LOWEST, AND LOCKED POSITION. 2 SIDE RAILS UP, AND INSTRUCTED PT. TO USE CALL LIGHT FOR ASSISTANCE. ALL NEED MET. WILL CONTINUE TO ASSESS AND MONITOR. PT.'S DISCHARGE PAPERS ARE SIGNED. PER NURSE PT.'S BROTHER WAS GOING TO PICK PT. UP AT 0600, WILL FOLLOW UP ON PT.'S DISCHARGE.
[2017-04-08 08:00] VITALS: BP 159/101
[2017-04-08] MEDS: ALBUTEROL FS 2.5 MG/0.5 ML VIAL.NEB NEB SCH ×2 (08:02→11:42)
[2017-04-08] MEDS: IPRATROPIUM NEB FS 0.5 MG/2.5 ML AMPUL.NEB NEB SCH ×2 (08:03→11:42)
[2017-04-08] MEDS: LACTOBACILLUS RHAMNOSUS GG 1 EACH CAP.SPRINK PO SCH (10:48)
[2017-04-08] MEDS: PANTOPRAZOLE 40 MG TABLET.DR PO SCH (10:48)
[2017-04-08] MEDS: AMLODIPINE BESYLATE 5 MG TABLET PO SCH (10:49)
[2017-04-08] MEDS: predniSONE 20 MG TABLET PO SCH (10:49)
[2017-04-08 12:37] VITALS: BP 140/99
--- NOTE | 2017-04-08 14:00 | NUR ---
RN NOTES PT.'S DISCHARGE INSTRUCTIONS WERE PROVIDED AND EXPLAINED WITH NEW MEDICATIONS PRESCRIPTION, PT. VERBALIZED UNDERSTANDING.
--- NOTE | 2017-04-08 14:25 | NUR ---
ELECTRIC BLASTING CAP ASSEMBLER NOTES PT. LEFT IN MEDICALLY STABLE CONDITION. PT. WAS TAKEN DOWN STAIRS TO [facility] ACCOMPANIED BY PEDIATRIC PHYSICAL THERAPY ASSISTANT TO GO HOME BY TAXI. PT. LEFT WITH DISCHARGE PACKET AND BELONGINGS. PT.'S CELL PHONE WAS MISSING WHEN CHECKING BELONGINGS LIST, AND LEFT WITHOUT SHOES, PT. WORE NO SLIP SOCKS HOME. PT.'S CLOTHES WERE SOILED DURING SHIFT. NEW CLOTHES WERE PROVIDED BY HOSPITAL. PT. LEFT WITH BELONGINGS, AND ID BAND WAS REMOVED WITHOUT COMPLICATIONS. ALL QUESTIONS WERE ANSWERED. PT. LEFT WITH TAXI VOUCHER IN HAND.
== END 2017-04-08 14:20 | disposition home or self-care (01) | DRG 720 ==
LOC: ER 17:04 → ICU 19:56 → TELE 03-23 19:08 → MED 03-24 14:14 → TELE 03-24 14:19 → MED 03-25 11:42 → MEDSG2 03-25 20:31 → MED 04-06 17:02
PROVIDERS: ADMIT Nurse Practitioner Acute Care; ATTEND Nurse Practitioner Acute Care
DX: A41.50 Gram-negative sepsis, unspecified (principal); I21.4 Non-ST elevation (NSTEMI) myocardial infarction; N17.0 Acute kidney failure with tubular necrosis; K55.059 Acute (reversible) ischemia of intestine, part and extent unspecified; E72.20 Disorder of urea cycle metabolism, unspecified; A04.72 Enterocolitis due to Clostridium difficile, not specified as recurrent; J90 Pleural effusion, not elsewhere classified; I11.0 Hypertensive heart disease with heart failure; I50.22 Chronic systolic (congestive) heart failure; K85.90 Acute pancreatitis without necrosis or infection, unspecified; D68.9 Coagulation defect, unspecified; E87.2 Acidosis; I21.A1 Myocardial infarction type 2; E87.5 Hyperkalemia; R65.20 Severe sepsis without septic shock; F41.9 Anxiety disorder, unspecified; I25.2 Old myocardial infarction; Z79.82 Long term (current) use of aspirin; Z79.899 Other long term (current) drug therapy; E16.2 Hypoglycemia, unspecified; F19.90 Other psychoactive substance use, unspecified, uncomplicated; Z59.0 Homelessness; Z91.14 Patient's other noncompliance with medication regimen; K80.20 Calculus of gallbladder without cholecystitis without obstruction; I13.0 Hypertensive heart and chronic kidney disease with heart failure and stage 1 through stage 4 chronic kidney disease, or unspecified chronic kidney disease; I25.10 Atherosclerotic heart disease of native coronary artery without angina pectoris; N18.9 Chronic kidney disease, unspecified; K29.80 Duodenitis without bleeding; K65.4 Sclerosing mesenteritis; K72.90 Hepatic failure, unspecified without coma; I42.9 Cardiomyopathy, unspecified; B19.20 Unspecified viral hepatitis C without hepatic coma; D75.89 Other specified diseases of blood and blood-forming organs; T38.0X5A Adverse effect of glucocorticoids and synthetic analogues, initial encounter; Y92.009 Unspecified place in unspecified non-institutional (private) residence as the place of occurrence of the external cause; K76.0 Fatty (change of) liver, not elsewhere classified; R13.10 Dysphagia, unspecified; R18.8 Other ascites; N13.8 Other obstructive and reflux uropathy; K59.00 Constipation, unspecified; J44.9 Chronic obstructive pulmonary disease, unspecified; I34.0 Nonrheumatic mitral (valve) insufficiency; I27.29 Other secondary pulmonary hypertension; D69.6 Thrombocytopenia, unspecified; Z87.81 Personal history of (healed) traumatic fracture; F20.9 Schizophrenia, unspecified; F10.10 Alcohol abuse, uncomplicated; A41.89 Other specified sepsis
CPT/HCPCS: 36415; 36600; 70450-TC; 71010-TC; 76705-TC; 80048-TC; 80053-TC; 80061-TC; 80074; 80076-TC; 80202-TC; 80305; 81000-TC; 82140-TC; 82150-TC; 82272-TC; 82550-TC; 82553-TC; 82570-TC; 82784; 82803-TC; 82962-TC; 83516; 83520; 83605-TC; 83690-TC; 83735-TC; 83880; 83935-TC; 83970; 84100-TC; 84132-TC; 84155; 84155-TC; 84165; 84300-TC; 84443-TC; 84484-TC; 85025-TC; 85045-TC; 85396; 85610-TC; 85730-TC; 86256; 86850-TC; 87040-TC; 87081-TC; 87086-TC; 87177; 87186-TC; 87209; 93307-TC; 94799-TC; 97110-TC; 97112-TC; 97116-TC; 97530-TC; A4216; A4606; C1751; C9113; G0480; J0610; J0692; J1170; J1940; J2185; J2405; J2920; J3370; J3475; J3490; J7030; J7040; J7042; J7050; J7060; J7070; P9017-BL; Q9967; Z7610

== ENCOUNTER 2017-09-01 23:51 | Inpatient (IN) | payer OTHER ==
[~2017-09-01] VITALS: Ht 188 cm; Wt 84.8 kg
[~2017-09-01 23:51] MED LIST changes: +ASPI-1152 PO; -ASPI-991 PO
--- NOTE | 2017-09-02 02:15 | NUR ---
PT BB SELF FROM [facility]REETS C/O "MY NOSE IS CLOGGED; MY EYES AND LEGS SWOLLEN". PT IS AAOX4. SKIN DRY AND WARM TO TOUCH. VSS. NO S/S OF DISTRESS NOTED. RESP IN MILD DISTRESS. RT CALLED FOR BREATHING TREATMENT. PT PLACED ON MONITOR AND POX. MD BEDSIDE FOR EVAL.
[2017-09-02] MEDS ORDERED: ASPIRIN 81 MG TAB.CHEW PO ONE (02:30)
[2017-09-02] MEDS ORDERED: HYDROCODONE/APAP 5/325MG 1 EACH TABLET PO ONE (02:30)
[2017-09-02] MEDS ORDERED: NITROGLYCERIN 0.4 MG/TAB BOTTLE SL ONE (02:30)
[2017-09-02] MEDS ORDERED: NITROGLYCERIN PACKET 1 GM PACKET TD ONE (02:30)
[2017-09-02] MEDS ORDERED: ONDANSETRON HCL/PF 4 MG/2 ML VIAL IVP ONE (02:30)
--- NOTE | 2017-09-02 02:47 | NUR ---
BLOOD DRAW SENT TO LAB
--- NOTE | 2017-09-02 02:53 | NUR ---
RADIOLOGY AT BEDSIDE FOR CXR
[2017-09-02] MEDS ORDERED: NITROGLYCERIN 0.4 MG/TAB BOTTLE ONE (03:00)
[2017-09-02] MEDS ORDERED: ONDANSETRON HCL/PF 4 MG/2 ML VIAL ONE (03:00)
[2017-09-02] MEDS ORDERED: NITROGLYCERIN PACKET 1 GM PACKET ONE (03:00)
[2017-09-02] MEDS ORDERED: HYDROCODONE/APAP 5/325MG 1 EACH TABLET ONE (03:00)
[2017-09-02] MEDS ORDERED: ASPIRIN 81 MG TAB.CHEW ONE (03:01)
[2017-09-02 03:06] LABS: BASOPHILS % (AUTO) 0.5 % (0.0-2.0); EOSINOPHILS % (AUTO) 0.6 % (0.0-6.0); HEMATOCRIT 37 % (39-51); HEMOGLOBIN 12.3 g/dL (13.5-17.5); LYMPHOCYTES # (AUTO) 1.2 /CMM (0.8-4.8); LYMPHOCYTES % (AUTO) 14.6 % (20.0-44.0); MEAN CORPUSCULAR HGB CONC 34 g/dl (31.0-36.0); MEAN CORPUSCULAR VOLUME 89 fL (80-96); MONOCYTES % (AUTO) 12.1 % (2.0-12.0); NEUTROPHILS # (AUTO) 5.8 /CMM (1.8-8.9); NEUTROPHILS % (AUTO) 72.2 % (43.0-81.0); PLATELET COUNT (AUTO) 202 /CMM (150-450); RDW COEFFICIENT OF VARIATION 20.4 (11.5-15.0); RED BLOOD CELL COUNT(AUTO) 4.12 MIL/uL (4.5-6.0)
[2017-09-02 03:26] LABS: INR 1.29 (0.87-1.13)
[2017-09-02 03:31] LABS: TROPONIN I 0.044 ng/mL (0.00-0.056)
[2017-09-02 03:35] LABS: ALBUMIN 3.3 g/dL (3.4-5.0); BILIRUBIN,DIRECT 0.7 mg/dL (0.0-0.2); BILIRUBIN,TOTAL 1.5 mg/dL (0.2-1.0); CALCIUM, SERUM 9.2 mg/dL (8.5-10.1); CREATININE 1.3 mg/dL (0.6-1.3); POTASSIUM 3.9 mmol/L (3.5-5.1); TOTAL PROTEIN, SERUM 8.7 g/dL (6.4-8.2)
--- NOTE | 2017-09-02 03:45 | NUR ---
Patient is resting comfortably in bed with eyes closed. Easily aroused. VSS
--- NOTE | 2017-09-02 05:05 | NUR ---
DR. SCHNEIDER SPOKE TO PT REGARDING POC. PER WYATT PT IS OKAY TO HAVE WATER AT THIS TIME.
[2017-09-02] MEDS ORDERED: FUROSEMIDE 40 MG/4 ML VIAL IV ONE (06:30)
[2017-09-02] MEDS ORDERED: FUROSEMIDE 40 MG/4 ML VIAL ONE (06:34)
--- NOTE | 2017-09-02 07:24 | NUR ---
REPORT GIVEN TO WILBER SARKAR FOR BRYSON.
--- NOTE | 2017-09-02 08:21 | NUR ---
GAVE REPORT TO MARTY WAYNE RN [id number] CHEST PAIN . HILDA PHAM NP ADMITTING
--- NOTE | 2017-09-02 09:10 | NUR ---
GEAR MACHINE OPERATOR GENERAL NOTES RECEIVED PT FROM E.R. STAFF, AWAKE, ALERT AND ORIENTED, RESPIRATIONS NORMAL AND NOT LABORED, WITH COMPLAINT OF CHEST PAIN 11/18, NO SOB, ASSISTED TO BED, MADE COMFORTABLE, PLAN OF CARE DISCUSSED WITH PT, VERBALIZED UNDERSTANDING, CALL LIGHT WITHIN REACH, AWAITING FOR ADMITTING ORDERS FROM MD.
[2017-09-02 09:30] VITALS: BP 129/87
--- NOTE | 2017-09-02 10:30 | NUR ---
TWX OPERATOR NOTES PT IN BED, ASLEEP, EASY TO AROUSE, NOT IN DISTRESS, TOLERATING ROOM AIR WELL, STATED HE STILL HAS PAIN AT THE CHEST, NO FACIAL GRIMACING OR MOANING, KEPT WARM AND COMFORTABLE.
[2017-09-02 16:00] VITALS: BP 137/94
--- NOTE | 2017-09-02 16:27 | NUR ---
WINDER OPERATOR NOTES PT IN BED, ASLEEP, EASY TO AROUSE, VERBALLY RESPONSIVE, NO COMPLAINT OF CHEST PAIN AT THIS TIME, RESPIRATIONS NORMAL, LIMITED SKIN ASSESSMENT DONE, PT NON REFUSING SKIN CHECK RIGHT NOW, STATED THAT HE DOES NOT HAVE ANY SKIN PROBLEM, CALL LIGHT KEPT WITHIN REACH.
[2017-09-02] MEDS ORDERED: ACETAMINOPHEN 325 MG TABLET PO PRN (17:00)
[2017-09-02] MEDS ORDERED: ZOLPIDEM TARTRATE 5 MG TABLET PO PRN (17:00)
[2017-09-02] MEDS ORDERED: MAGNESIUM HYDROXIDE 30 ML UDC PO PRN (17:00)
[2017-09-02] MEDS ORDERED: ONDANSETRON HCL/PF 4 MG/2 ML VIAL IVP PRN (17:00)
[2017-09-02] MEDS ORDERED: Z GUARD REMEDY 2 OZ OINT TP PRN (17:00)
[2017-09-02] MEDS ORDERED: HYDROCODONE/APAP 5/325MG 1 EACH TABLET PO PRN (17:00)
--- NOTE | 2017-09-02 19:20 | NUR ---
RN NOTES RECEIVED PT AWAKE, ALERT AND ORIENTED X3, ON ROOM AIR AND TOLERATED WELL. PT DENIES ANY PAIN AND DISCOMFORT AT THIS TIME. IV ACCESS ON RIGHT EJ PATENT AND INTACT. PT IS AMBULATORY WITH STEADY GAIT NOTED. CURRENT DIET TOLERATED WELL, DENIES NAUSEA AND VOMITING. PLAN OF CARE DISCUSSED WITH THE PT AND VERBALIZED UNDERSTANDING. WILL CONTINUE TO MONITOR PT.
[2017-09-02 20:00] VITALS: BP 121/82
[2017-09-02 22:00] VITALS: BP 121/82
[2017-09-03] VITALS: BP 133/91
[2017-09-03 04:00] VITALS: BP 142/77
[2017-09-03 06:42] LABS: BASOPHILS % (AUTO) 0.6 % (0.0-2.0); EOSINOPHILS % (AUTO) 1.7 % (0.0-6.0); HEMATOCRIT 37 % (39-51); HEMOGLOBIN 12.2 g/dL (13.5-17.5); LYMPHOCYTES % (AUTO) 23.5 % (20.0-44.0); MEAN CORPUSCULAR HGB CONC 33 g/dl (31.0-36.0); MEAN CORPUSCULAR VOLUME 90 fL (80-96); MONOCYTES % (AUTO) 12.1 % (2.0-12.0); NEUTROPHILS # (AUTO) 5.2 /CMM (1.8-8.9); NEUTROPHILS % (AUTO) 62.1 % (43.0-81.0); PLATELET COUNT (AUTO) 191 /CMM (150-450); RDW COEFFICIENT OF VARIATION 20.5 (11.5-15.0); RED BLOOD CELL COUNT(AUTO) 4.09 MIL/uL (4.5-6.0); WHITE BLOOD COUNT (AUTO) 8.3 K/uL (4.3-11.0)
--- NOTE | 2017-09-03 06:50 | NUR ---
RN NOTES PT SLEPT WELL OVERNIGHT. VITAL SIGNS STABLE. DENIES PAIN NAUSEA AND VOMITING. PER HILDA ROTH ITS OK TO USE RIGHT EJ IV ACCESS FOR LAB DRAW. ALL NEEDS ATTENDED. WILL ENDORSE TO MORNING RN FOR CONTINUITY OF CARE.
[2017-09-03 06:56] LABS: CALCIUM, SERUM 8.9 mg/dL (8.5-10.1); CREATININE 1.3 mg/dL (0.6-1.3); MAGNESIUM 1.5 mg/dL (1.8-2.4); PHOSPHORUS 3.3 mg/dL (2.5-4.9); POTASSIUM 3.9 mmol/L (3.5-5.1)
--- NOTE | 2017-09-03 07:30 | NUR ---
RN MS NOTES PT IN BED, ASLEEP, EASY TO AROUSE, ALERT AND ORIENTED, DENIES PAIN AT THIS TIME, RESPIRATIONS NORMAL, CALL LIGHT WITHIN REACH, KEPT DISTILLERY WORKER GENERAL BED.
[2017-09-03 08:00] VITALS: BP 132/94
[2017-09-03] MEDS: FUROSEMIDE 40 MG/4 ML VIAL IV SCH ×3 (08:52→17:22)
[2017-09-03] MEDS: CARVEDILOL 3.125 MG TABLET PO SCH ×2 (08:52→20:55)
[2017-09-03] MEDS ORDERED: POTASSIUM CHLORIDE 20 MEQ TAB.PRT.SR PO SCH (09:00)
[2017-09-03] MEDS ORDERED: FUROSEMIDE 40 MG/4 ML VIAL IV SCH (09:00)
[2017-09-03] MEDS: ENOXAPARIN SODIUM 40 MG/0.4 ML DISP.SYRIN SQ SCH (09:00)
--- NOTE | 2017-09-03 11:40 | NUR ---
Social service consult requested by GONZALEZ Chen for homelessness. Pt. is a 56 year old male who was admitted to [facility] for chest pain. SAADIA is very familiar with pt. from previous admissions. Pt. requested for SW to come back later since he was too tired. SAADIA to follow up with pt. later this afternoon. Addendum: 09/03/17 at 1445 by JM ZEE SW met with pt. bedside. Pt. is currently homeless. Pt. is alert and oriented x 4. Pt. was residing with his brother, however his brother got evicted and he has been homeless since then. Pt. receives approximately $940/ month in SSDI. Pt. is an alcoholic and consumes a bottle of vodka per day. Pt. last had alcohol past weekend. Pt. has not been in any alcohol treatment program and declined to go to one or accept any resources. Pt. is open to going to a board and care facility that will take $600-$700 per month. SAADIA along with renal case manager Shelley Whittaker to look for a board and care facility for the pt. prior to discharge. Pt. denies drug use. Pt. smokes marijuana on a daily basis. Pt. is a cigarette smoker. SW to follow up with pt. prior to discharge to offer referrals.
[2017-09-03] MEDS: Magnesium 1GM/D5W 100ML PREMIX 100 ML IV SCH ×2 (12:41→14:20)
--- NOTE | 2017-09-03 13:00 | NUR ---
RN MS NOTES PT IN BED, SLEEPS INTERMITTENTLY, EASY TO AROUSE, NO COMPLAINT OF PAIN, NOT IN DISTRESS, NEEDS ATTENDED, SCHEDULED MEDS GIVEN, CALL LIGHT WITHIN REACH.
[2017-09-03 16:00] VITALS: BP 112/77
--- NOTE | 2017-09-03 18:09 | NUR ---
RN MS NOTES PT IN BED, AWAKE, DENIES PAIN, BREATHING PATTERN NORMAL, TOLERATING CURRENT DIET WELL, SEEN BY HILDA MRI ASSISTANT, PLAN OF CARE DISCUSSED WITH PT, VERBALIZED UNDERSTANDING, PM MEDS GIVEN, ALL NEEDS ATTENDED.
[2017-09-03 19:52] VITALS: BP 131/86
[2017-09-04 07:01] LABS: BASOPHILS # (AUTO) 0.1 /CMM (0.0-0.2); BASOPHILS % (AUTO) 1.3 % (0.0-2.0); EOSINOPHILS % (AUTO) 2.4 % (0.0-6.0); HEMATOCRIT 34 % (39-51); HEMOGLOBIN 11.4 g/dL (13.5-17.5); LYMPHOCYTES # (AUTO) 1.3 /CMM (0.8-4.8); MEAN CORPUSCULAR HGB CONC 34 g/dl (31.0-36.0); MEAN CORPUSCULAR VOLUME 89 fL (80-96); MONOCYTES # (AUTO) 0.7 /CMM (0.1-1.30); MONOCYTES % (AUTO) 9.9 % (2.0-12.0); NEUTROPHILS # (AUTO) 4.8 /CMM (1.8-8.9); NEUTROPHILS % (AUTO) 67.4 % (43.0-81.0); PLATELET COUNT (AUTO) 213 /CMM (150-450); RED BLOOD CELL COUNT(AUTO) 3.77 MIL/uL (4.5-6.0); WHITE BLOOD COUNT (AUTO) 7.1 K/uL (4.3-11.0)
--- NOTE | 2017-09-04 07:10 | NUR ---
RN CLOSING NOTES PATIENT ASLEEP IN BED, EASILY AROUSABLE, DENIES CHEST PAIN, NO SOB, BREATHING EVEN AND UNLABORED AND IN NO ACUTE DISTRESS. ALL PATIENT'S NEEDS ATTENDED TO THROUGHOUT THE SHIFT. PALCED CALL LIGHT WITHIN EASY REACH, BED IN LOW POSITION AND LOCKED IN PALCE. WILL ENDORSE TO AM SHIFT NURSE FOR CONTINUITY OF CARE.
--- NOTE | 2017-09-04 07:15 | NUR ---
RN OPENING NOTES PATIENT IN BED ALERT ORIENTED X 3. NO ACUTE DISTRESS NOTES. BREATHING UNLABORED. IV ACCESS PATENT AND INTACT, NO REDNESS OR SWELLING NOTED. SAFETY MEASURES IN PLACE. CALL LIGHT WITHIN REACH. WILL CONTINUE TO MONITOR ACCORDINGLY.
[2017-09-04 08:00] VITALS: BP 122/72
[2017-09-04 08:10] LABS: TROPONIN I 0.041 ng/mL (0.00-0.056)
[2017-09-04 08:11] LABS: ALBUMIN 2.7 g/dL (3.4-5.0); BILIRUBIN,TOTAL 0.6 mg/dL (0.2-1.0); CALCIUM, SERUM 8.9 mg/dL (8.5-10.1); CREATININE 1.2 mg/dL (0.6-1.3); MAGNESIUM 2.3 mg/dL (1.8-2.4); PHOSPHORUS 3.9 mg/dL (2.5-4.9); POTASSIUM 3.6 mmol/L (3.5-5.1); TOTAL PROTEIN, SERUM 7.9 g/dL (6.4-8.2)
[2017-09-04] MEDS: CARVEDILOL 3.125 MG TABLET PO SCH ×2 (08:24→20:42)
[2017-09-04] MEDS: ENOXAPARIN SODIUM 40 MG/0.4 ML DISP.SYRIN SQ SCH (08:25)
--- NOTE | 2017-09-04 08:34 | NUR ---
RN NOTES SEEN AND EVALUATED BY DR MAKI WITH NEW ORDERS MADE, NOTED AND CARRIED OUT.
[2017-09-04] MEDS ORDERED: BUMETANIDE INJ 8 MG in IV NS 0.9% 48 ML IV ONE ×2 (09:00→12:00)
[2017-09-04] MEDS: POTASSIUM CHLORIDE 20 MEQ TAB.PRT.SR PO SCH ×3 (09:39→11:58)
--- NOTE | 2017-09-04 10:55 | NUR ---
MS RN NOTES SEEN AND EVALUATED BY GONZALEZ PHAM WITH NEW ORDERS MADE, NOTED AND CARRIED OUT.
[2017-09-04] MEDS ORDERED: BUME2TAB3 PO (10:56)
[2017-09-04] MEDS ORDERED: CARV3.122 PO (10:56)
--- NOTE | 2017-09-04 15:20 | NUR ---
SW met with pt. bedside to discuss discharge plan. Pt. refused board and care placement and skilled nursing placement. Pt. accepted list of homeless resources and food resources. Pt. stated he will make his own arrangements. Pt. will require a bus token upon discharge. Homeless Patient Waiver Form was signed by pt. and placed in the chart. Med Surg CRN Dara and pt's RN Michelle were updated regarding pt's discharge plan.
[2017-09-04 16:00] VITALS: BP 130/70
--- NOTE | 2017-09-04 19:00 | NUR ---
RN CLOSING NOTES PATIENT IN BED ALERT ORIENTED X 3. NO ACUTE DISTRESS NOTES. BREATHING UNLABORED. IV ACCESS PATENT AND INTACT, NO REDNESS OR SWELLING NOTED.DUE MEDICATIONS GIVEN, NO ASE NOTED. NEEDS ATTENDED AND ANTICIPATED. SAFETY MEASURES IN PLACE. CALL LIGHT WITHIN REACH. ENDORSED TO NIGHT NURSE FOR CONTINUITY OF CARE..
--- NOTE | 2017-09-04 19:25 | NUR ---
MS RN OPENING NOTES RECEIVED PT LAYING IN BED WITH HOB ELEVATED. A/O X3, AFEBRILE. RESPIRATIONS ARE EVEN AND UNLABORED, NOT IN ANY ACUTE DISTRESS NOTED. DENIES ANY PAIN AT THIS TIME. NO C/O PAIN, SOB, N/V. SAFETY MEASURES ARE IN PLACE. INSTRUCTED PT TO USE CALL LIGHT WHEN ASSISTANCE IS NEEDED, CALL LIGHT IS LEFT WITHIN REACH. WILL CONTINUE TO MONITOR THROUGHOUT SHIFT.
[2017-09-04 20:00] VITALS: BP 121/81
--- NOTE | 2017-09-05 06:25 | NUR ---
MS RN CLOSING NOTES ALL DUE MEDS GIVEN, NEEDS MET AND RENDERED. REMAINS AFEBRILE. RESPIRATIONS ARE EVEN AND UNLABORED, NOT IN ANY ACUTE DISTRESS NOTED. DENIES ANY PAIN AT THIS TIME, NO C/O SOB, N/V. IV SITE INTACT, NO INFILTRATION NOTED. DRESSING KEPT CLEAN AND DRY. SAFETY MEASURES ARE IN PLACE. REMINDED PT TO USE CALL LIGHT WHEN ASSISTANCE IS NEEDED, ALL LIGHT IS LEFT WITHIN REACH. WILL ENDORSE TO NEXT SHIFT FOR CONTINUITY OF CARE.
--- NOTE | 2017-09-05 06:30 | NUR ---
MS RN NOTES PT'S IV CAME OUT. NO ACTIVE BLEEDING NOTED. LEFT MESSAGE TO DR. ABDULLAHI. ENDORSED TO NEXT SHIFT FOR BRYSON.
--- NOTE | 2017-09-05 07:05 | NUR ---
RN NOTES PATIENT IN BED ALERT ORIENTED X 3. NO ACUTE DISTRESS NOTED. BREATHING UNLABORED. DENIED ANY PAIN. SAFETY MEASURES IN PLACE. CALL LIGHT WITHIN REACH. WILL CONTINUE TO MONITOR ACCORDINGLY.
[2017-09-05 07:56] LABS: BASOPHILS # (AUTO) 0.2 /CMM (0.0-0.2); BASOPHILS % (AUTO) 1.9 % (0.0-2.0); EOSINOPHILS % (AUTO) 2.6 % (0.0-6.0); HEMATOCRIT 41 % (39-51); LYMPHOCYTES # (AUTO) 1.5 /CMM (0.8-4.8); LYMPHOCYTES % (AUTO) 17.9 % (20.0-44.0); MEAN CORPUSCULAR HGB CONC 34 g/dl (31.0-36.0); MEAN CORPUSCULAR VOLUME 88 fL (80-96); MONOCYTES # (AUTO) 1.1 /CMM (0.1-1.30); MONOCYTES % (AUTO) 13.4 % (2.0-12.0); NEUTROPHILS # (AUTO) 5.1 /CMM (1.8-8.9); NEUTROPHILS % (AUTO) 64.2 % (43.0-81.0); PLATELET COUNT (AUTO) 235 /CMM (150-450); RDW COEFFICIENT OF VARIATION 18.7 (11.5-15.0); RED BLOOD CELL COUNT(AUTO) 4.65 MIL/uL (4.5-6.0); WHITE BLOOD COUNT (AUTO) 8.1 K/uL (4.3-11.0)
[2017-09-05 08:00] VITALS: BP 114/82
[2017-09-05 08:05] LABS: ALBUMIN 2.9 g/dL (3.4-5.0); BILIRUBIN,TOTAL 0.7 mg/dL (0.2-1.0); CALCIUM, SERUM 9.3 mg/dL (8.5-10.1); CREATININE 1.2 mg/dL (0.6-1.3); MAGNESIUM 1.4 mg/dL (1.8-2.4); PHOSPHORUS 4.7 mg/dL (2.5-4.9); TOTAL PROTEIN, SERUM 8.8 g/dL (6.4-8.2)
[2017-09-05 08:25] VITALS: BP 114/82
[2017-09-05] MEDS: CARVEDILOL 3.125 MG TABLET PO SCH (08:25)
[2017-09-05] MEDS: ENOXAPARIN SODIUM 40 MG/0.4 ML DISP.SYRIN SQ SCH (08:26)
[2017-09-05] MEDS ORDERED: FUROSEMIDE 80 MG TABLET PO SCH (09:00)
[2017-09-05] MEDS ORDERED: POTASSIUM CHLORIDE 20 MEQ TAB.PRT.SR PO SCH (09:00)
--- NOTE | 2017-09-05 10:13 | NUR ---
SAADIA gave pt's RN Michelle two bus tokens to give to pt. upon discharge. Homeless patient Waiver Form was signed by pt.yesterday and placed in the chart. Pt. was given homeless resources as well. No other social service needs are requested at this time. SW is available, if needed.
[2017-09-05] MEDS ORDERED: Magnesium 1GM/D5W 100ML PREMIX 100 ML IV SCH (10:21)
[2017-09-05] MEDS ORDERED: MAGNESIUM OXIDE 400 MG TABLET PO ONE (11:00)
--- NOTE | 2017-09-05 15:20 | NUR ---
BEHAVIOR MANAGEMENT SPECIALIST NOTES PATIENT DISCHARGED IN STABLE CONDITION. NO ACUTE DISTRESS NOTED. DISCHARGE INSTRUCTIONS GIVEN TO THE PATIENT, VERBALIZED UNDERSTANDING. ALL BELONGINGS ACCOUNTED FOR. BUS TOKEN GIVEN TO THE PATIENT. ASSISTED TO THE LOBBY.
[2018-02-07] MEDS ORDERED: SIMV20TA6 PO (11:04)
[2018-02-07] MEDS ORDERED: DOCU-141 PO (11:04)
== END 2017-09-05 16:14 | disposition home or self-care (01) | DRG 190 ==
LOC: ER 23:53 → TELE 09-02 08:20 → MED 09-03 09:06
PROVIDERS: ADMIT Nurse Practitioner Acute Care; ATTEND Nurse Practitioner Acute Care
DX: I21.4 Non-ST elevation (NSTEMI) myocardial infarction (principal); I50.23 Acute on chronic systolic (congestive) heart failure; K85.90 Acute pancreatitis without necrosis or infection, unspecified; G72.1 Alcoholic myopathy; E46 Unspecified protein-calorie malnutrition; I11.0 Hypertensive heart disease with heart failure; I25.2 Old myocardial infarction; F19.10 Other psychoactive substance abuse, uncomplicated; F10.10 Alcohol abuse, uncomplicated; Y90.9 Presence of alcohol in blood, level not specified; Z79.82 Long term (current) use of aspirin; Z79.899 Other long term (current) drug therapy; D63.8 Anemia in other chronic diseases classified elsewhere; Z59.0 Homelessness; Z91.14 Patient's other noncompliance with medication regimen
CPT/HCPCS: 36415; 71045-TC; 80048-TC; 80053-TC; 80061-TC; 80076-TC; 83690-TC; 83735-TC; 83880; 84100-TC; 84484-TC; 85025-TC; 85730-TC; 87081-TC; 93307-TC; A4216; A4606; J1650; J1940; J2405; J3475; J3490; J7050; Z7610

== ENCOUNTER 2018-02-05 07:06 | Inpatient (IN) | payer OTHER ==
[~2018-02-05] VITALS: Ht 190.5 cm; Wt 71.7 kg
[~2018-02-05 07:06] MED LIST changes: -ASPI-1152 PO; -ATOR10TA PO; +BUME2TAB3 PO; +CARV3.122 PO; -Losartan Potassium PO; -METO25TA20 PO
--- NOTE | 2018-02-05 07:15 | NUR ---
MARCELLE FROM [facility] CHEST DISCOMFORT, FEELING SICK INT HE PAST 3 DAYS, PATIENT APPEARS NOT IN DISTRESS, SKIN IS WARM TO TOUCH AND NON DIAPHORETIC. PATIENT IS AFEBRILE. VSS.
[2018-02-05 08:09] LABS: CALCIUM, SERUM 8.8 mg/dL (8.5-10.1); CREATININE 1.6 mg/dL (0.6-1.3); POTASSIUM 3.5 mmol/L (3.5-5.1)
[2018-02-05 08:16] LABS: TROPONIN I 0.069 ng/mL (0.00-0.056)
[2018-02-05 08:19] LABS: ALBUMIN 3.2 g/dL (3.4-5.0); BILIRUBIN,DIRECT 0.6 mg/dL (0.0-0.2); BILIRUBIN,TOTAL 1.5 mg/dL (0.2-1.0); TOTAL PROTEIN, SERUM 8.7 g/dL (6.4-8.2)
[2018-02-05 08:25] LABS: INR 1.51 (0.87-1.13)
[2018-02-05 08:31] LABS: HEMATOCRIT 34 % (39-51); HEMOGLOBIN 11.2 g/dL (13.5-17.5); MEAN CORPUSCULAR VOLUME 91 fL (80-96); RED BLOOD CELL COUNT(AUTO) 3.76 MIL/uL (4.5-6.0); WHITE BLOOD COUNT (AUTO) 5.7 K/uL (4.3-11.0)
[2018-02-05 08:32] LABS: BASOPHILS # (AUTO) 0.1 /CMM (0.0-0.2); BASOPHILS % (AUTO) 0.9 % (0.0-2.0); EOSINOPHILS % (AUTO) 1.2 % (0.0-6.0); LYMPHOCYTES # (AUTO) 1.2 /CMM (0.8-4.8); LYMPHOCYTES % (AUTO) 20.7 % (20.0-44.0); MEAN CORPUSCULAR HGB CONC 33 g/dl (31.0-36.0); MONOCYTES # (AUTO) 0.8 /CMM (0.1-1.30); MONOCYTES % (AUTO) 14.7 % (2.0-12.0); NEUTROPHILS # (AUTO) 3.6 /CMM (1.8-8.9); NEUTROPHILS % (AUTO) 62.5 % (43.0-81.0); PLATELET COUNT (AUTO) 195 /CMM (150-450); RDW COEFFICIENT OF VARIATION 16.8 (11.5-15.0)
[2018-02-05] MEDS ORDERED: NITROGLYCERIN PACKET 1 GM PACKET ONE (08:39)
[2018-02-05] MEDS ORDERED: ENOXAPARIN SODIUM 80 MG/0.8 ML DISP.SYRIN SQ ONE ×2 (08:39→09:00)
[2018-02-05] MEDS ORDERED: FUROSEMIDE 40 MG/4 ML VIAL ONE (08:39)
[2018-02-05] MEDS ORDERED: ASPIRIN 325 MG TABLET ONE (08:39)
[2018-02-05] MEDS ORDERED: LOSA50TA21 PO (08:40)
[2018-02-05] MEDS ORDERED: CARV6.252 PO (08:40)
[2018-02-05] MEDS ORDERED: ASPI-1169 PO (08:40)
[2018-02-05] MEDS ORDERED: FUROSEMIDE 40 MG/4 ML VIAL IV ONE (09:00)
[2018-02-05] MEDS ORDERED: NITROGLYCERIN PACKET 1 GM PACKET TD ONE (09:00)
[2018-02-05] MEDS ORDERED: ASPIRIN 325 MG TABLET PO ONE (09:00)
[2018-02-05] MEDS ORDERED: DOCUSATE SODIUM 100 MG CAPSULE PO PRN (10:00)
[2018-02-05] MEDS ORDERED: NITROGLYCERIN PACKET 1 GM PACKET TD PRN (10:00)
[2018-02-05] MEDS ORDERED: MORPHINE SULFATE INJ 2 MG/ML DISP.SYRIN IV PRN (10:00)
[2018-02-05] MEDS ORDERED: NITROGLYCERIN 0.4 MG/TAB BOTTLE SL PRN (10:00)
--- NOTE | 2018-02-05 10:51 | NUR ---
REPORT GIVEN WILBER JOHNSON FOR BRYSON
--- NOTE | 2018-02-05 11:30 | NUR ---
ARBORER OPENING NOTE.S PT RECEIVED A&0X1- STATES HE DOESN'T KNOW THE YEAR OR PRESIDENT. PT TOLERATING ROOM AIR WITH SPO2 WNL, PT REPORTS MINOR SOB AT REST BUT REFUSES PRN NC. PT DENIES PAIN OR DISCOMFORT. NO CHEST PAIN. PT VITALS CHARTED. PT WITH IVC AT [facility] SALINE FLUSH PATENT. PT BELONGINGS CHARTED. PT BRIEFED ON POC AND IS WITHOUT CONCERN OR COMPLAINT. WILL CONTINUE POC.
[2018-02-05 12:30] VITALS: BP_SYST 152; BP_DIAS 78; BP_DIAS 98
--- NOTE | 2018-02-05 15:00 | NUR ---
MARIA MERINO. PT AGAIN REFUSING SKIN ASSESSMENT.
[2018-02-05 16:00] VITALS: BP 125/92
[2018-02-05] MEDS: BUMETANIDE (1 MG) 1 MG TABLET PO SCH (16:28)
[2018-02-05] MEDS: CARVEDILOL 6.25 MG TABLET PO SCH (16:28)
[2018-02-05 16:31] LABS: TROPONIN I 0.072 ng/mL (0.00-0.056)
[2018-02-05 17:02] LABS: APPEARANCE,URINE SL CLOUDY (CLEAR); BILIRUBIN,URINE NEGATIVE (NEGATIVE); BLOOD, URINE NEGATIVE Ery/uL (NEGATIVE); COLOR,URINE YELLOW (YELLOW); KETONES,URINE NEGATIVE (NEGATIVE); LEUKOCYTE ESTERASE ,URINE TRACE (NEGATIVE); NITRITE, URINE NEGATIVE (NEGATIVE); PH,URINE 5.5 (5.0-8.0); PROTEIN,URINE NEGATIVE (NEGATIVE); UGLUCOSE NEGATIVE (NEGATIVE); UROBILINOGEN,URINE 0.2 EU/dL (0.2)
[2018-02-05 17:44] LABS: BACTERIA,URINE None seen /HPF (None Seen); RBC,URINE 0-2 /HPF (0-2); SQUAMOUS EPITHELIAL CELL,UR Rare /HPF (None Seen); WBC,URINE 0-2 /HPF (0-3)
[2018-02-05] MEDS ORDERED: IV NS 0.9% 1,000 ML BAG IV PRN (18:00)
[2018-02-05] MEDS ORDERED: IV NS 0.9% 1,000 ML IV PRN (18:00)
--- NOTE | 2018-02-05 18:09 | NUR ---
TELE.WILBER. CRITICAL LACTIC REPORTED AND INTERNET RESEARCHER LW REQUESTING NS STARTED AT 50CC/HR. ORDERS PLACED.
--- NOTE | 2018-02-05 18:55 | NUR ---
CIGARETTE FILTER INSPECTOR CLOSING NOTES. PT TOLERATING ROOM AIR WITH SPO2 WNL AND MINOR SOB AT REST BUT REFUSES PRN NC, NC WITHIN REACH. PT DENIES PAIN OR DISCOMFORT REMAINS WITHOUT NO CHEST PAIN. PT REMAINS REFUSING SKIN ASSESSMENT. PT HAS REQUIRED SIGNIFICANT ENCOURAGEMENT TO LET LABS BE DRAWN. PT WITH IVC AT [facility] WITH IVF PER RX, TAPED FOR SAFETY AND URINE BOTTLE AT BEDSIDE.. ALL DAY NURSE DUTIES ATTENDED TO AND PT IS WITHOUT CONCERN OR COMPLAINT AT THIS TIME.
--- NOTE | 2018-02-05 19:00 | NUR ---
RN NOTES ASKED PT IF I CAN DO SKIN ASSESSMENT PT REFUSED
--- NOTE | 2018-02-05 19:30 | NUR ---
RN NOTES RECEIVED PT SLEEPING BUT AROUSABLE, AOX2-3, SR ON TELE MONITOR HR- 89, ON IV FLUID NS RUNNING @ 50ML/HR, DENIES PAIN AT THIS TIME, NO SOB, CLL LIGHT WITHIN REACH, SIDERIALSUPX2, CONTINUE TO MONITOR
[2018-02-05 20:00] VITALS: BP 113/89
--- NOTE | 2018-02-05 21:36 | NUR ---
RN NOTES LACTIC ACID CAME BACK- 2.5- CALLED DR. DONAHUE AND INFORMED HIM REGARDING THE LACTIC ACID, DR. DONAHUE TOLD ME TO MONITOR THE PT. FOR NOW
[2018-02-05] MEDS: SIMVASTATIN 20 MG TABLET PO SCH (22:28)
[2018-02-06] VITALS: BP 120/96
[2018-02-06] MEDS ORDERED: MORPHINE SULFATE INJ 4 MG/ML DISP.SYRIN IV PRN
--- NOTE | 2018-02-06 00:10 | NUR ---
RN NOTES PT STATED THAT HE'S NOT FEELING GOOD..ADVICE PT TO WEAR OXYGEN BUT PT, IS REFUSING
[2018-02-06] MEDS: MORPHINE SULFATE INJ 4 MG/ML DISP.SYRIN IV PRN ×2 (00:11→06:40)
--- NOTE | 2018-02-06 00:16 | NUR ---
RN NOTES COMPLAINED OF PAIN ON HIS RIGHT UPPER CHEST- MORPHINE 2 MG IV GIVEN ORDERED, V/S STABLE
[2018-02-06 00:20] VITALS: BP 120/96
--- NOTE | 2018-02-06 00:45 | NUR ---
RN NOTES AFTER GIVING MORPHINE . PT PAIN ON HIS RIGHT UPPER CHEST WAS RELIEVED
[2018-02-06 04:00] VITALS: BP_SYST 106; BP_SYST 119; BP_DIAS 67; BP_DIAS 78
--- NOTE | 2018-02-06 06:27 | NUR ---
RN NOTES SLEEPING BUT AROUSABLE, DENIES PAIN, NO SOB, MORNING CARE RENDERED, CALL LIGHT WITHIN REACH, MEREDITHAILSUPX2, PT. NEEDS ATTENDED
--- NOTE | 2018-02-06 06:44 | NUR ---
RN NOTES COMPLAINED OF PAIN ON HIS RIGHT UPPER CHEST- MORPHINE 2 MG IV GIVEN ORDERED, V/.S STABLE. ENDORSED TO DAYSHIFT NURSE FOR CONTINUITY OF CARE
--- NOTE | 2018-02-06 07:37 | NUR ---
RN OPENING TELE NOTES RECEIVED PATIENT IN BED, AWAKE A&OX2, VERBALLY RESPONSIVE AND ABLE TO MAKE NEEDS KNOWN. REMAINS ON ROOM AIR, REFUSING OXYGEN, NO SOB AT THIS TIME. IN IV FLUIDS, NS @50ML/HR VIA R IJ #20 AND TOLERATING. NO COMPLAINT OF PAIN OR DISCOMFORT AT THIS TIME, BED IN LOWEST LOCKED POSITION, CALL LIGHT WITHIN REACH AT ALL TIMES, WILL CONTINUE TO MONITOR.
[2018-02-06 08:00] VITALS: BP 110/86
[2018-02-06 08:26] LABS: CALCIUM, SERUM 8.4 mg/dL (8.5-10.1); CREATININE 1.8 mg/dL (0.6-1.3); MAGNESIUM 1.3 mg/dL (1.8-2.4); PHOSPHORUS 4.3 mg/dL (2.5-4.9); POTASSIUM 4.1 mmol/L (3.5-5.1); THYROID STIMULATING HORMONE 4.598 uIU/mL (0.358-3.74)
[2018-02-06] MEDS: CARVEDILOL 6.25 MG TABLET PO SCH ×2 (08:37→16:51)
[2018-02-06] MEDS: ASPIRIN 325 MG TABLET PO SCH (08:37)
[2018-02-06] MEDS: NICOTINE PATCH (7MG) 7 MG PATCH.TD24 TD SCH ×2 (08:37→09:00)
[2018-02-06] MEDS: BUMETANIDE (1 MG) 1 MG TABLET PO SCH ×2 (08:37→16:51)
[2018-02-06] MEDS: LOSARTAN POTASSIUM 50 MG TABLET PO SCH (08:38)
[2018-02-06] MEDS: ENOXAPARIN SODIUM 40 MG/0.4 ML DISP.SYRIN SQ SCH (08:39)
[2018-02-06] MEDS ORDERED: ASPIRIN 81 MG TAB.CHEW PO SCH (09:00)
[2018-02-06 09:07] LABS: HEMATOCRIT 36 % (39-51); HEMOGLOBIN 11.5 g/dL (13.5-17.5); RED BLOOD CELL COUNT(AUTO) 3.89 MIL/uL (4.5-6.0); WHITE BLOOD COUNT (AUTO) 5.5 K/uL (4.3-11.0)
[2018-02-06 09:08] LABS: BASOPHILS % (AUTO) 0.7 % (0.0-2.0); EOSINOPHILS % (AUTO) 2.1 % (0.0-6.0); LYMPHOCYTES # (AUTO) 1.4 /CMM (0.8-4.8); MEAN CORPUSCULAR HGB CONC 32 g/dl (31.0-36.0); MEAN CORPUSCULAR VOLUME 92 fL (80-96); MONOCYTES # (AUTO) 0.8 /CMM (0.1-1.30); MONOCYTES % (AUTO) 14.4 % (2.0-12.0); NEUTROPHILS # (AUTO) 3.2 /CMM (1.8-8.9); NEUTROPHILS % (AUTO) 57.8 % (43.0-81.0); PLATELET COUNT (AUTO) 175 /CMM (150-450); RDW COEFFICIENT OF VARIATION 17.4 (11.5-15.0)
[2018-02-06 09:18] LABS: CHOLESTEROL 106 mg/dL (<200); HDL CHOLESTEROL 40 mg/dL (40-60); LDL 67 mg/dL (0-99); TRIGLYCERIDES 60 mg/dL (30-150)
[2018-02-06] MEDS: Magnesium 1GM/D5W 100ML PREMIX 100 ML IV SCH ×2 (10:14→11:17)
--- NOTE | 2018-02-06 10:58 | NUR ---
Social service consult requested by GONZALEZ Ramesh for homelessness. Pt. is a 57 year old male who was admitted to [facility] for chest pain. SAADIA and caseworker intake Shelley Whittaker met with pt. bedside. SW is familiar with pt. from previous admissions. Pt's last admission at [facility] was 09/02/2017. Pt. was initially hesitant to speak to SW, however did cooperative grudgingly. Pt. states he is homeless. Pt. no longer resides with his brother. Pt. receives approximately $840/ month in SSDI. Pt. is an alcoholic and consumes a pint of vodka per day. Pt. has not been in any alcohol treatment program and declined to go to one or accept any resources. Pt. is open to going to an independent living facility that will take $600 per month. SAADIA and caseworker intake Shelley Whittaker to refer pt. to [facility] for an independent living. Pt. denies drug use. Pt. denies smokes marijuana and cigarettes at this time. SW to follow up with pt. prior to discharge to offer referrals.
--- NOTE | 2018-02-06 15:08 | NUR ---
CALLED [facility] FOLLOW UP AND JM STATED THAT THEY ARE WAITING FOR THE [facility] RESPONSE.
[2018-02-06 15:13] LABS: CREATININE, URINE 82.3 MG/DL (30.0-125.0); URINE TOTAL PROTEIN 21.1 mg/dL (0-11.9)
[2018-02-06 15:15] LABS: APPEARANCE,URINE CLEAR (CLEAR); BILIRUBIN,URINE NEGATIVE (NEGATIVE); BLOOD, URINE NEGATIVE Ery/uL (NEGATIVE); COLOR,URINE YELLOW (YELLOW); KETONES,URINE NEGATIVE (NEGATIVE); LEUKOCYTE ESTERASE ,URINE NEGATIVE (NEGATIVE); NITRITE, URINE NEGATIVE (NEGATIVE); PH,URINE 5.5 (5.0-8.0); PROTEIN,URINE NEGATIVE (NEGATIVE); UGLUCOSE NEGATIVE (NEGATIVE); UROBILINOGEN,URINE 0.2 EU/dL (0.2)
[2018-02-06 15:18] LABS: EOSINOPHIL,URINE None Seen
[2018-02-06 16:00] VITALS: BP 94/47
--- NOTE | 2018-02-06 16:46 | NUR ---
PT WANTS TO GO THE TOILET AND WAS FEELING DIZZY.EXPLAINED THAT HE NEEDS OXYGEN BUT PT REFUSED TO USE OXYGEN SINCE MORNING.EXPLAINED THE RISKS,BENEFITS AND CONSEQUENCES OF OXYGEN USE BUT PT INSISTS TO REFUSE.OFFERED ASSISTANCE TO THE PT IN GOING TO THE TOILET BUT PT REFUSED.
--- NOTE | 2018-02-06 18:01 | NUR ---
BACKEND DEVELOPER CLOSING NOTES PATIENT REMAINS IN BED, AWAKE, ALERT AND ORIENTEDX2-3 BREATHING ON ROOM AIR AND TOLERATING, MINOR SOB, PATIENT REFUSED NC, NON COMPLAINT, DENIES CHEST PAIN, COMPLAINT OF DIZZINESS, DENIES ASSISTANCE. PM CARE PROVIDED, PATIENT CLEAN AND DRY, BED IN LOWEST LOCKED POSITION, CALL LIGHT WITHIN REACH, NC WITHIN REACH. NO FURTHER COMPLAINT OF PAIN OR DISCOMFORT, WILL ENDORSE TO NIGHT NURSE FOR BRYSON
--- NOTE | 2018-02-06 19:46 | NUR ---
MS RN INITIAL NOTES Received patient, awake on semi-Amador's position on bed, with patent IV line RIJ G#20 with NS infusing well @ 50ml/hr as ordered. On room air, refusing to put on O2, with mild SOB on rest noted. Explained the benefits of having O2 but patient insist to refused. Patient also refused skin assessment. Raised HOB to high-Amador's position. Will continue to monitor accordingly.
[2018-02-06 20:00] VITALS: BP 103/80
--- NOTE | 2018-02-06 20:38 | NUR ---
MS RN NOTES Patient was convinced to put on O2 inhalation @ 3 LPM via NC, saturating @ 100%. Decreased SOB noted. Patient noted asleep comfortably on bed. On sinus rhythm 70bpm.
[2018-02-06] MEDS: SIMVASTATIN 20 MG TABLET PO SCH (21:11)
--- NOTE | 2018-02-06 23:16 | NUR ---
MS RN NOTES Patient claimed having localized chest pain /. Nitroglycerin SL given as ordered. BP 100/72. Encouraged patient to put on O2. To reassess after 5 minutes
--- NOTE | 2018-02-06 23:21 | NUR ---
MS RN NOTES - CHEST PAIN REASSESSMENT Patient claimed chest pain is gone. BP 95/50. Patient removed O2 inhalation, asking for morphine. Explained to patient he needs O2 supplement for now but patient refused and said he will put on when he needs it. Informed patient he can't received morphine for now due to low BP. Will continue to monitor.
--- NOTE | 2018-02-07 00:03 | NUR ---
MS RN NOTES - TRANSFER TO TELE Paged alek Pérez MD. Relayed patient's current status. New orders noted and carried. Discontinued IVF. Transfer patient to TELE. Will continue to monitor accordingly.
--- NOTE | 2018-02-07 03:49 | NUR ---
CHECK OUT CASHIER NOTES - REFUSED TELE MONITOR Patient came back for toilet with 1 lead off. Assisted to bed comfortably. MANAGER APPLIED tried to fixed the off lead but patient refused. Also, patient refused to check his VS. Minimal SOB noted, removed his O2 inhalation. Patient on L sidelying position. Monitored accordingly.
[2018-02-07] MEDS: MORPHINE SULFATE INJ 4 MG/ML DISP.SYRIN IV PRN (05:08)
--- NOTE | 2018-02-07 05:08 | NUR ---
SUPPLY CHAIN ASSOCIATE NOTES Patient complain localized dull chest pain. Check vital signs, BP 121/82, HR 85. O2 sat 100%, minimal SOB noted. Administered Morphine as ordered.
--- NOTE | 2018-02-07 06:41 | NUR ---
DRY CLEANER PRESSER CLOSING NOTES Patient awake on semi-Amador's position per patient's choice claiming he is comfortable on that position. No O2 inhalation, minimal SOB noted. With patent IV line BETHANY Machuca#20, SL. Remained non-compliant with routine care including tele monitoring and vital signs. Refused physical assessment. Call light within easy reached, noted not using it when going to toiler. Kept bed low and lock, bed alarm on, siderails x2 up. All needs attended. Endorsed to the next shift for continuity of care.
[2018-02-07 07:33] LABS: BASOPHILS # (AUTO) 0.1 /CMM (0.0-0.2); BASOPHILS % (AUTO) 1.2 % (0.0-2.0); EOSINOPHILS % (AUTO) 2.9 % (0.0-6.0); HEMATOCRIT 34 % (39-51); HEMOGLOBIN 10.9 g/dL (13.5-17.5); LYMPHOCYTES # (AUTO) 1.4 /CMM (0.8-4.8); LYMPHOCYTES % (AUTO) 23.1 % (20.0-44.0); MEAN CORPUSCULAR HGB CONC 32 g/dl (31.0-36.0); MEAN CORPUSCULAR VOLUME 91 fL (80-96); MONOCYTES # (AUTO) 0.7 /CMM (0.1-1.30); MONOCYTES % (AUTO) 11.8 % (2.0-12.0); NEUTROPHILS # (AUTO) 3.6 /CMM (1.8-8.9); PLATELET COUNT (AUTO) 213 /CMM (150-450); RDW COEFFICIENT OF VARIATION 17.4 (11.5-15.0); RED BLOOD CELL COUNT(AUTO) 3.68 MIL/uL (4.5-6.0); WHITE BLOOD COUNT (AUTO) 5.9 K/uL (4.3-11.0)
[2018-02-07 07:48] LABS: BILIRUBIN,TOTAL 0.6 mg/dL (0.2-1.0); CALCIUM, SERUM 8.6 mg/dL (8.5-10.1); MAGNESIUM 1.9 mg/dL (1.8-2.4); POTASSIUM 4.1 mmol/L (3.5-5.1); TOTAL PROTEIN, SERUM 8.4 g/dL (6.4-8.2)
[2018-02-07 08:00] VITALS: BP 109/69
--- NOTE | 2018-02-07 08:00 | NUR ---
MS RN AM NOTES Received patient, awake on semi-Amador's position on bed, with patent IV line RIJ G#20.On room air, refusing to put on O2, with mild SOB on rest noted. Explained the benefits of having O2 but patient insist to refused. Patient also refused skin assessment. Raised HOB to high-Amador's position. Will continue to monitor accordingly.
--- NOTE | 2018-02-07 08:00 | NUR ---
RN-NOTES RECEIVED PATIENT IN BED AWAKE,ALERT X3 NO ACUTE DISTRESS NOTED. IV SITE ON RIJ G#20, PATENT NO REDNESS OR COMPLICATION ON THE IV SITE.On ROOM AIR WITH O2 SAT OF 99% AT THIS TIME. ABLE TO AMBULATE TO THE BATHROOM WITH STEADY GAIT. ALL NEEDS ATTENDED AND ANTICIPATED.CALL LIGHT WITHIN REACH.
[2018-02-07] MEDS: ASPIRIN 325 MG TABLET PO SCH (08:40)
[2018-02-07 08:41] VITALS: BP 109/69
[2018-02-07] MEDS: BUMETANIDE (1 MG) 1 MG TABLET PO SCH (08:41)
[2018-02-07] MEDS: ENOXAPARIN SODIUM 40 MG/0.4 ML DISP.SYRIN SQ SCH (08:41)
[2018-02-07] MEDS: NICOTINE PATCH (7MG) 7 MG PATCH.TD24 TD SCH (08:41)
[2018-02-07] MEDS: LOSARTAN POTASSIUM 50 MG TABLET PO SCH (08:41)
[2018-02-07] MEDS: CARVEDILOL 6.25 MG TABLET PO SCH (08:41)
[2018-02-07] MEDS ORDERED: DOCU-141 PO (11:04)
[2018-02-07] MEDS ORDERED: SIMV20TA6 PO (11:04)
--- NOTE | 2018-02-07 14:00 | NUR ---
DISCHARGE INSTRUCTIONS,MED RECONCILIATION,MED AND HEALTH TEACHING GIVEN TO THE PT.IV H/L REMOVED TO RT IJ SITE WITH NO BLEEDING NOTED.PT STATED THAT HE FEELS DIZZY,EXPLAINED TO THE PT THAT HE'S BEEN C/O DIZZINESS AND SOB THE PAST FEW DAYS DURING HIS STAY IN THE HOSPITAL BUT HE REFUSED TO EVEN HAVE OXYGEN THE PAST FEW DAYS INSPITE OF EXPLAINING ITS RISKS AND BENEFITS.PT SAYS THAT IT KRISHNA HIS NOSE AND INSISTS TO REFUSE OXYGEN.PT STATED THAT HE WILL GO BACK TO E.R. IF HE DOESN'T FEEL GOOD.PT IS NON COMPLIANT WITH MEDS WELL.
--- NOTE | 2018-02-07 15:03 | NUR ---
DISCHARGED HOME WITH STABLE V/S.PT AMBULATING STEADILY WITH SLOW,GAIT AND REMAINS ALERT AND ORIENTED.NO C/O DIZZINESS.DISCHARGED PT TO [facility] PER PT'S REQUEST VIA TAXI VOUCHER.NO S/S OF PAIN OR DISTRESS.ALL BELONGINGS GIVEN TO THE PT.
[2018-02-10 14:16] LABS: *SPE A/G RATIO 0.7 (0.7-1.7); *SPE ALBUMIN 3.2 g/dL (2.9-4.4); *SPE ALPHA-1-GLOBULIN 0.3 g/dL (0.0-0.4); *SPE ALPHA-2-GLOBULIN 0.7 g/dL (0.4-1.0); *SPE BETA GLOBULIN 1.1 g/dL (0.7-1.3); *SPE GLOBULIN, TOTAL 4.9 g/dL (2.2-3.9); *SPE M-SPIKE Not Observed g/dL (Not Observed); *SPEGAMMA GLOBULIN 2.9 g/dL (0.4-1.8); PTH, INTACT 40 pg/mL (15-65)
== END 2018-02-07 14:50 | disposition home or self-care (01) | DRG 190 ==
LOC: ER 07:07 → TELE 10:39 → MED 02-06 08:32 → TELE 02-07 00:44 → MED 02-07 08:50
PROVIDERS: ADMIT Registered Nurse; ATTEND Registered Nurse
DX: I21.A1 Myocardial infarction type 2 (principal); N17.0 Acute kidney failure with tubular necrosis; I11.0 Hypertensive heart disease with heart failure; D68.59 Other primary thrombophilia; I27.20 Pulmonary hypertension, unspecified; I50.9 Heart failure, unspecified; E44.1 Mild protein-calorie malnutrition; Z79.899 Other long term (current) drug therapy; I42.9 Cardiomyopathy, unspecified; I25.2 Old myocardial infarction; F17.200 Nicotine dependence, unspecified, uncomplicated; N39.0 Urinary tract infection, site not specified; D64.9 Anemia, unspecified; F10.10 Alcohol abuse, uncomplicated; Z59.0 Homelessness; Z91.19 Patient's noncompliance with other medical treatment and regimen; I34.0 Nonrheumatic mitral (valve) insufficiency
CPT/HCPCS: 36415; 71045-TC; 80048-TC; 80053-TC; 80061-TC; 80076-TC; 80305; 81000-TC; 82550-TC; 82570-TC; 82652; 83605-TC; 83735-TC; 83880; 83970; 84100-TC; 84155; 84155-TC; 84165; 84300-TC; 84443-TC; 84484-TC; 85025-TC; 85730-TC; 87081-TC; 93307-TC; A4606; J1650; J1940; J2270; J3475; J7030; Z7610

== ENCOUNTER 2018-05-15 01:01 | Inpatient (IN) | payer OTHER ==
[~2018-05-15] VITALS: Ht 175.3 cm; Wt 68.1 kg
[~2018-05-15 01:01] MED LIST changes: +ASPI-1169 PO; -CARV3.122 PO; +CARV6.252 PO; +DOCU-141 PO; +LOSA50TA39 PO; +SIMV20TA6 PO
--- NOTE | 2018-05-15 01:10 | NUR ---
PT BIB RA. COMP OF HAVING "CHEST PAIN WHILE SINGING". NO SOB NOTEED. NO ACUTE DISTRESS AT THIS TIME. PT AMBULATORY W.STEADY GAIT. AWAITING MD SAENZ.
--- NOTE | 2018-05-15 01:15 | NUR ---
AT BEDSIDE FOR EVAL.
--- NOTE | 2018-05-15 01:30 | NUR ---
BLOOD DRAWN AND GIVEN TO LAB
--- NOTE | 2018-05-15 01:39 | NUR ---
CALLED RADIOLOGY RE: CXR.
--- NOTE | 2018-05-15 01:41 | NUR ---
RADIO AT BEDSIDE.
[2018-05-15 01:43] LABS: BASOPHILS % (AUTO) 0.2 % (0.0-2.0); EOSINOPHILS % (AUTO) 0.1 % (0.0-6.0); HEMATOCRIT 34 % (39-51); HEMOGLOBIN 10.8 g/dL (13.5-17.5); LYMPHOCYTES # (AUTO) 0.6 /CMM (0.8-4.8); LYMPHOCYTES % (AUTO) 4.5 % (20.0-44.0); MEAN CORPUSCULAR HGB CONC 32 g/dl (31.0-36.0); MEAN CORPUSCULAR VOLUME 90 fL (80-96); MONOCYTES # (AUTO) 1.2 /CMM (0.1-1.30); MONOCYTES % (AUTO) 9.3 % (2.0-12.0); NEUTROPHILS # (AUTO) 10.7 /CMM (1.8-8.9); NEUTROPHILS % (AUTO) 85.9 % (43.0-81.0); PLATELET COUNT (AUTO) 223 /CMM (150-450); RED BLOOD CELL COUNT(AUTO) 3.75 MIL/uL (4.5-6.0); WHITE BLOOD COUNT (AUTO) 12.5 K/uL (4.3-11.0)
[2018-05-15 02:04] LABS: ALBUMIN 3.8 g/dL (3.4-5.0); BILIRUBIN,DIRECT 1.4 mg/dL (0.0-0.2); BILIRUBIN,TOTAL 2.1 mg/dL (0.2-1.0); CALCIUM, SERUM 8.8 mg/dL (8.5-10.1); CREATININE 2.9 mg/dL (0.6-1.3); POTASSIUM 4.4 mmol/L (3.5-5.1)
[2018-05-15] MEDS ORDERED: NITROGLYCERIN PACKET 1 GM PACKET TOP ONE (02:30)
[2018-05-15] MEDS ORDERED: BUMETANIDE INJ 0.25 MG/ML VIAL IV ONE (02:30)
[2018-05-15] MEDS ORDERED: ASPIRIN 81 MG TAB.CHEW PO ONE (02:30)
[2018-05-15 04:20] VITALS: BP 154/99
--- NOTE | 2018-05-15 04:20 | NUR ---
MASH FILTER OPERATORNUCLEAR MEDICINE SPECIALIST NOTES Received patient from ER via [facility], accompanied by 2 ER staff. Admitted to TELE 315-2 due to ACS/ARF under the service of Dr. Baldwin. Patient A/O x2-3, with confusion noted. Reoriented patient to location. Patient noted soaked in own's urine. Cleaned patient, perineal care done with PRESS CLIPPER. Admission routine done. Belongings inventory done by the PRESS CLIPPER. Kept patient clean and dry, comfortable on bed. Call light within easy reach. On O2 via NC @ 2LPM saturating well 99%. With patent IV line, L externa jugular G#18, SL. On tele monitor, SR [address] depression noted. With complain of pain on Left neck, localized dull chest pain 6/10. Offered patient pain meds, administered as ordered. Will continue to monitor accordingly.
--- NOTE | 2018-05-15 04:20 | NUR ---
REPORT GIVEN TO WILBER POLANCO FOR BRYSON
[2018-05-15 04:30] VITALS: BP 154/99
[2018-05-15] MEDS ORDERED: ONDANSETRON HCL/PF 4 MG/2 ML VIAL IVP PRN (05:00)
[2018-05-15] MEDS ORDERED: DOCUSATE SODIUM 100 MG CAPSULE PO PRN (05:00)
[2018-05-15] MEDS ORDERED: ACETAMINOPHEN 325 MG TABLET PO PRN (05:00)
[2018-05-15] MEDS ORDERED: CLONIDINE HCL 0.1 MG TABLET PO PRN (05:00)
[2018-05-15] MEDS ORDERED: ALBUTEROL FS 2.5 MG/3 ML VIAL.NEB NEB PRN (05:00)
--- NOTE | 2018-05-15 05:50 | NUR ---
MS RN NOTES Rechecked BP - 145/86mmHg. Patient is stable at this time.
--- NOTE | 2018-05-15 06:52 | NUR ---
COMMERCIAL CONSTRUCTION SUPERINTENDENT CLOSING NOTES Patient asleep in Amador's position with O2 inhalation @ 2LPM, saturating well, no respiratory distress noted. All needs attended. Due meds given as ordered. On tele monitor - SR 86. With patent L external jugular IV line G#18, SL. Endorsed to the next shift for BRYSON.
[2018-05-15 07:43] LABS: BASOPHILS % (AUTO) 0.4 % (0.0-2.0); HEMATOCRIT 34 % (39-51); HEMOGLOBIN 10.9 g/dL (13.5-17.5); LYMPHOCYTES # (AUTO) 0.6 /CMM (0.8-4.8); LYMPHOCYTES % (AUTO) 4.5 % (20.0-44.0); MEAN CORPUSCULAR HGB CONC 32 g/dl (31.0-36.0); MEAN CORPUSCULAR VOLUME 90 fL (80-96); MONOCYTES # (AUTO) 1.2 /CMM (0.1-1.30); MONOCYTES % (AUTO) 9.5 % (2.0-12.0); NEUTROPHILS % (AUTO) 85.6 % (43.0-81.0); PLATELET COUNT (AUTO) 198 /CMM (150-450); RED BLOOD CELL COUNT(AUTO) 3.77 MIL/uL (4.5-6.0); WHITE BLOOD COUNT (AUTO) 12.8 K/uL (4.3-11.0)
--- NOTE | 2018-05-15 07:50 | NUR ---
CRITICAL CARE SPECIALIST NOTES PATIENT RECEIVED RESTING INSIDE ROOM. SLEEPING, EASILY AROUSABLE THROUGH VERBAL AND TACTILE STIMULI. BREATHING EVEN AND UNLABORED. NO SOB OR ACUTE DISTRESS. PATIENT CALM AND RELAXED. DENIES ANY PAIN OR DISCOMFORT. CONTINUE ON TELEMETRY, STERILE PROCESSING TECHNOLOGIST IN PLACE. WILL CONTINUE TO MONITOR. BED LOCKED AND IN LOW POSITION. BILATERAL UPPER SIDE RAILS UP AND LOCKED. CALL LIGHT WITHIN EASY REACH
[2018-05-15 08:00] VITALS: BP 144/82
[2018-05-15 08:30] LABS: ALBUMIN 3.6 g/dL (3.4-5.0); BILIRUBIN,TOTAL 2.1 mg/dL (0.2-1.0); CALCIUM, SERUM 8.7 mg/dL (8.5-10.1); CREATININE 2.7 mg/dL (0.6-1.3); MAGNESIUM 2.2 mg/dL (1.8-2.4); POTASSIUM 4.6 mmol/L (3.5-5.1); TOTAL PROTEIN, SERUM 8.6 g/dL (6.4-8.2)
[2018-05-15] MEDS: CARVEDILOL 6.25 MG TABLET PO SCH ×2 (08:54→17:00)
[2018-05-15] MEDS: PANTOPRAZOLE 40 MG TABLET.DR PO SCH (08:54)
[2018-05-15] MEDS ORDERED: ASPIRIN 325 MG TABLET PO SCH (09:00)
[2018-05-15] MEDS ORDERED: IV NS 0.9% 1,000 ML IV PRN (10:00)
[2018-05-15] MEDS ORDERED: hydrALAZINE HCL 25 MG TABLET PO PRN (10:00)
[2018-05-15] MEDS: AMLODIPINE BESYLATE 5 MG TABLET PO SCH (10:25)
[2018-05-15 12:00] VITALS: BP 136/79
--- NOTE | 2018-05-15 14:10 | NUR ---
LEARNING PROGRAM MANAGER NOTES PATIENT SEEN AND EXAMINED BY DR. VILLATORO. MADE AWARE OF ORDER FROM DR. LIN FOR NS @ 50CC/HR IV. PER DR. VILLATORO, TO DC NS IV @ 50CC/HR. ORDER NOTED AND CARRIED OUT. PATIENT MADE AWARE AND VERBALIZED UNDERSTANDING. WILL CONTINUE TO MONITOR
--- NOTE | 2018-05-15 14:50 | NUR ---
Social service consult requested by Dr. Baldwin for homelessness. Pt. is a 57 year old male who was admitted to [facility] for CHF and NStemi. SW met with pt. bedside. Pt. appears very weak and stated, " I am tired, and come later please." SW to follow up with pt. at a later time when pt. is feeling better and is able to talk comfortably.
[2018-05-15 16:00] VITALS: BP 103/60
[2018-05-15] MEDS: BUMETANIDE INJ 0.25 MG/ML VIAL IV SCH (17:23)
--- NOTE | 2018-05-15 18:33 | NUR ---
APARTMENT MANAGER NOTES PATIENT RESTING INSIDE ROOM. AWAKE, ALERT AND ORIENTED, VERBALLY RESPONSIVE AND RESPONDS TO VERBAL AND TACTILE STIMULI. BREATHING EVEN AND UNLABORED. DENIES ANY PAIN OR DISCOMFORT AT THIS TIME. ALL NURSING NEEDS ATTENDED AND MET. PATIENT KEPT CLEAN, DRY AND COMFORTABLE. WILL ENDORSE TO INCOMING SHIFT FOR BRSYON. BED LOCKED AND IN LOW POSITION. BILATERAL UPPER SIDE RAILS UP AND LOCKED. CALL LIGHT WITHIN EASY REACH
--- NOTE | 2018-05-15 19:10 | NUR ---
YARN REWINDER OPENING NOTES RECEIVED PATIENT IN BED SLEEPING BUT EASILY AROUSABLE, RESPIRATIONS EVEN AND UNLABORED WITH EQUAL RISE AND FALL OF CHEST, DENIES ANY PAIN OR DISCOMFORT, ON 02 2 L VIA NC, NO RESPIRATORY DISTRESS PRESENT, ALERT AND ORIENTED X 4, ON DECOMMISSIONING WELL SITE MANAGER SR77, LEFT EJ IV SITE INTACT AND PATENT NO REDNESS , NO INFILTRATION PRESENT, URINAL AT BEDSIDE AND OFFERED, ORIENTED TO STAFF AND CALL LIGHT AND KEPT WITHIN REACH, LOW BED AND LOCKED, BED ALARM IN PLACE, REMAINS COMFORTABLE AT THIS TIME, ALL NEEDS ATTENDED WILL CONTINUE TO MONITOR.
[2018-05-15 20:00] VITALS: BP 105/65
[2018-05-15] MEDS: SIMVASTATIN 20 MG TABLET PO SCH (21:54)
[2018-05-15] MEDS: HYDROCODONE/APAP 5/325MG 1 EACH TABLET PO PRN (21:55)
--- NOTE | 2018-05-15 21:55 | NUR ---
BEHAVIORAL HEALTH WORKER NOTES PATIENT COMPLAINT OF PAIN TO NECK FROM COUGHING REQUESTING FOR PAIN MEDICATION OFFERED TYLENOL AND NORCO PATIENT AGREED TO NORCO STATES PAIN IS 10/10 NORCO 5/325 GIVEN ORDERED VS WNL 105/65,78,18,96% WILL CONTINUE TO MONITOR FOR EFFECTIVENESS.
[2018-05-15] MEDS ORDERED: ATORVASTATIN 40 MG TABLET PO SCH (22:00)
[2018-05-15] MEDS ORDERED: SIMVASTATIN 20 MG TABLET PO SCH (22:00)
[2018-05-16] VITALS: BP 113/70
[2018-05-16 04:00] VITALS: BP 109/81
--- NOTE | 2018-05-16 07:20 | NUR ---
FURNITURE REPAIRER CLOSING NOTES PATIENT IN BED SLEEPING BUT EASILY AROUSABLE, RESPIRATIONS EVEN AND UNLABORED WITH EQUAL RISE AND FALL OF CHEST, DENIES ANY PAIN OR DISCOMFORT, ON 02 2 L VIA NC, NO RESPIRATORY DISTRESS PRESENT, ALERT AND ORIENTED X 4, ON FINANCIAL PLANNING ASSISTANT SR75, LEFT EJ IV SITE INTACT AND PATENT NO REDNESS , NO INFILTRATION PRESENT, URINAL AT BEDSIDE AND OFFERED, CALL LIGHT AND KEPT WITHIN REACH, LOW BED AND LOCKED, BED ALARM IN PLACE, REMAINS COMFORTABLE AT THIS TIME, ALL NEEDS ATTENDED WILL CONTINUE TO MONITOR AND ENDORSE TO NEXT SHIFT.
[2018-05-16 08:00] VITALS: BP 126/82
[2018-05-16] MEDS: BUMETANIDE INJ 0.25 MG/ML VIAL IV SCH ×2 (08:22→17:22)
[2018-05-16] MEDS: ASPIRIN EC 81 MG TABLET.DR PO SCH (08:23)
[2018-05-16] MEDS: CARVEDILOL 6.25 MG TABLET PO SCH ×2 (08:23→17:22)
[2018-05-16] MEDS: PANTOPRAZOLE 40 MG TABLET.DR PO SCH (08:23)
[2018-05-16] MEDS: AMLODIPINE BESYLATE 5 MG TABLET PO SCH (08:32)
--- NOTE | 2018-05-16 09:39 | NUR ---
RN OPENING NOTES RECEIVED PT. PT STABLE AND RESTING IN BED. NO S/S OF RESP DISTRESS/SOB. NO C/O PAIN AT THIS TIME. PT IS ON FLUID RESTRICTION FOR CHF PROTOCOL. SAFETY MEASURES IN PLACE, CALL LIGHT WITHIN REACH. WILL CONTINUE TO MONITOR.
[2018-05-16 12:00] VITALS: BP 119/65
[2018-05-16 16:00] VITALS: BP 103/64
--- NOTE | 2018-05-16 18:35 | NUR ---
RN CLOSING NOTES PT IN BED RESTING. NO S/S OF RESP DISTRESS/SOB. ALL PT NEEDS ANTICIPATED AND MET. SAFETY MEASURES IN PLACE, CALL LIGHT WITHIN REACH. WILL ENDORSE TO NUDE MODEL FOR BRYSON.
--- NOTE | 2018-05-16 19:05 | NUR ---
RN MS OPENING NOTES RECEIVED PATIENT IN BED AWAKE ALERT AND ORIENTED X4, RESPIRATIONS EVEN AND UNLABORED WITH EQUAL RISE AND FALL OF CHEST, ON 02 2 L VIA NC, HOWEVER PATIENT AT TIMES DOES NOT USE AND STATES " IM FINE." NO SOB OR DISTRESS PRESENT, URINAL AT BEDSIDE AND OFFERED, PATIENT CURRENTLY DOES NOT HAVE EJ SITE IN PLACE , PATIENT REMOVED IN EARLIER SHIFT, NO BLEEDING PRESENT WILL CONTINUE TO TRY GAIN IV ACCESS PATIENT IS A HARDSTICK AND F/UP. ORIENTED TO STAFF AND CALL LIGHT AND KEPT WITHIN REACH, FLUIDS OFFERED, SAFETY PRECAUTIONS IN PLACE, LOW BED AND LOCKED, BED ALARM IN PLACE, SOULEYMANE ANY PAIN AT THIS TIME, ALL NEEDS ATTENDED REMAINS COMFORTABLE WILL CONTINUE TO MONITOR NEEDS.
[2018-05-16 20:00] VITALS: BP 110/68
[2018-05-16] MEDS: SIMVASTATIN 20 MG TABLET PO SCH (21:16)
--- NOTE | 2018-05-17 06:36 | NUR ---
RN MS CLOSING NOTES PATIENT REMAINS IN BED SLEEPING BUT EASILY AROUSABLE RESPIRATIONS EVEN AND UNLABORED WITH EQUAL RISE AND FALL OF CHEST, DENIES ANY PAIN OR DISCOMFORT, BED BATH GIVEN , LINENS CHANGED , FLUIDS OFFERED, TOILETING AND URINAL OFFERED, SNACKS AND FLUIDS OFFERED AND TOLERATED WELL, IV SITE TO RIGHT WRIST #22G INTACT AND PATENT, NO REDNESS, NO INFILTRATION PRESENT, SAFETY PRECAUTIONS IN PLACE, ALL NEEDS WERE ATTENDED, LOW BED AND LOCKED, BED ALARM IN PLACE AND CALL LIGHT KEPT WITHIN REACH, REMAINS COMFORTABLE WILL CONTINUE TO MONITOR AND ENDORSE TO NEXT SHIFT.
[2018-05-17 06:57] LABS: BASOPHILS % (AUTO) 0.6 % (0.0-2.0); EOSINOPHILS % (AUTO) 1.8 % (0.0-6.0); HEMATOCRIT 32 % (39-51); HEMOGLOBIN 10.4 g/dL (13.5-17.5); LYMPHOCYTES % (AUTO) 12.9 % (20.0-44.0); MEAN CORPUSCULAR HGB CONC 33 g/dl (31.0-36.0); MEAN CORPUSCULAR VOLUME 89 fL (80-96); MONOCYTES # (AUTO) 1.4 /CMM (0.1-1.30); MONOCYTES % (AUTO) 17.6 % (2.0-12.0); NEUTROPHILS # (AUTO) 5.3 /CMM (1.8-8.9); NEUTROPHILS % (AUTO) 67.1 % (43.0-81.0); PLATELET COUNT (AUTO) 138 /CMM (150-450); RED BLOOD CELL COUNT(AUTO) 3.59 MIL/uL (4.5-6.0); WHITE BLOOD COUNT (AUTO) 7.9 K/uL (4.3-11.0)
[2018-05-17 07:19] LABS: CALCIUM, SERUM 8.1 mg/dL (8.5-10.1); CREATININE 1.5 mg/dL (0.6-1.3); MAGNESIUM 1.4 mg/dL (1.8-2.4); PHOSPHORUS 1.7 mg/dL (2.5-4.9); POTASSIUM 3.7 mmol/L (3.5-5.1)
[2018-05-17 08:00] VITALS: BP 105/76
--- NOTE | 2018-05-17 08:00 | NUR ---
rECEIVED PATIENT IN BED BREATHING NO ACUTE DISTRESS NOTE PT DENIES PAIN AT THIS TIME , HEPLOCK TO RT HAND SECURED NO PAIN AT SITE FLUSHED WELL , PT ASSISTED UP IN BED FOR BREAKFAST , WILL CONTINUE TO MONITOR
[2018-05-17 08:32] VITALS: BP 105/76
[2018-05-17] MEDS: BUMETANIDE INJ 0.25 MG/ML VIAL IV SCH ×2 (09:03→17:17)
[2018-05-17] MEDS: PANTOPRAZOLE 40 MG TABLET.DR PO SCH (09:03)
[2018-05-17] MEDS: AMLODIPINE BESYLATE 5 MG TABLET PO SCH (09:03)
[2018-05-17] MEDS: CARVEDILOL 6.25 MG TABLET PO SCH ×2 (09:04→17:17)
[2018-05-17] MEDS: ASPIRIN EC 81 MG TABLET.DR PO SCH (09:04)
--- NOTE | 2018-05-17 10:01 | NUR ---
rn NOTE PT C/O HAS MAGNESIUM OF 1.4MG WILL INFUSE 4MG PER MD ORDER
[2018-05-17] MEDS: Magnesium 1GM/D5W 100ML PREMIX 100 ML IV SCH ×4 (10:29→12:47)
[2018-05-17] MEDS ORDERED: K PHOS NEUTRAL 250 MG TABLET PO ONE ×2 (12:00→13:00)
--- NOTE | 2018-05-17 12:59 | NUR ---
PHOSPHA 500 NOT GIVEN DUPLICATE INTRY BY PHARMACY
[2018-05-17 13:41] LABS: EOSINOPHILS % (MANUAL) 2 % (0-4); LYMPHOCYTES % (MANUAL) 6 % (16-48); MONOCYTES % (MANUAL) 7 % (0-11.0); NEUTROPHILS % (MANUAL) 85 (42-76)
--- NOTE | 2018-05-17 14:45 | NUR ---
MED SURG STATUS NO TELE Addendum: 05/17/18 at 1445 by ZEESHAN LEWIS RN Amended: Links added.
[2018-05-17 15:41] VITALS: BP 116/72
--- NOTE | 2018-05-17 20:28 | NUR ---
RN MS OPENING NOTES RECEIVED PT IN BED, AWAKE ALERT AND ORIENTEDX3, BREATHING EVEN AND UNLABORED ON ROOM AIR. NO SOB NOTED. NO COMPLAINT OF PAIN OR DISCOMFORT AT THE TIME. IV ACCESS ON THE R WRIST #22G SL. BED IN LOCKED POSITION, CALL LIGHT WITHIN REACH AT ALL TIMES, WILL CONTINUE TO MONITOR.
[2018-05-17 21:12] VITALS: BP 126/61
[2018-05-17] MEDS: SIMVASTATIN 20 MG TABLET PO SCH (21:17)
--- NOTE | 2018-05-18 06:30 | NUR ---
RN MS CLOSING NOTES PT REMAINS IN BED, AWAKE ALERT AND ORIENTEDX3, BREATHING EVEN AND UNLABORED ON ROOM AIR. NO SOB NOTED. NO COMPLAINT OF PAIN OR DISCOMFORT AT THE TIME. IV ACCESS ON THE R WRIST #22G SL. BED IN LOCKED POSITION, CALL LIGHT WITHIN REACH AT ALL TIMES, WILL ENDORSE TO DAY NURSE FOR BRYSON
[2018-05-18 07:22] LABS: CALCIUM, SERUM 8.2 mg/dL (8.5-10.1); CREATININE 1.3 mg/dL (0.6-1.3); MAGNESIUM 1.5 mg/dL (1.8-2.4); POTASSIUM 3.4 mmol/L (3.5-5.1)
--- NOTE | 2018-05-18 07:22 | NUR ---
MS/RN OPENING NOTE THE PATIENT SLEEPING IN BED. RESPONSIVE TO VERBAL AND TACTILE STIMULI. ALERT AND ORIENTED X3 AND ABLE TO MAKE NEEDS KNOWN VERBALLY. IN NO APPARENT DISTRESS. RIGHT WRIST G 22 PATENT AND SALINE LOCKED. BED LOW AND LOCKED. SIDE RAILS UP X3. CALL LIGHT WITHIN REACH. WILL CONTINUE TO MONITOR.
[2018-05-18] MEDS: BUMETANIDE INJ 0.25 MG/ML VIAL IV SCH (08:13)
[2018-05-18] MEDS: ASPIRIN EC 81 MG TABLET.DR PO SCH (08:14)
[2018-05-18] MEDS: AMLODIPINE BESYLATE 5 MG TABLET PO SCH (08:14)
[2018-05-18] MEDS: PANTOPRAZOLE 40 MG TABLET.DR PO SCH (08:14)
[2018-05-18] MEDS: CARVEDILOL 6.25 MG TABLET PO SCH ×2 (08:14→17:30)
[2018-05-18 08:20] VITALS: BP 123/76
[2018-05-18 08:27] VITALS: BP 123/76
[2018-05-18] MEDS: Magnesium 1GM/D5W 100ML PREMIX 100 ML IV SCH ×4 (11:24→15:42)
[2018-05-18] MEDS ORDERED: POTASSIUM CHLORIDE 20 MEQ TAB.PRT.SR PO SCH (11:30)
--- NOTE | 2018-05-18 11:44 | NUR ---
SAADIA met with pt. bedside. Pt. is alert and oriented x 4. Pt. appears clean. Pt's mood is congruent. Pt. is a 57 year old male who states he is back residing with his brother Ruben. Pt. stated, his brother is coming to visit today. Pt. granted SW permission to contact his brother regarding discharge back home. Pt. receives approximately $840/ month in [employer]. Pt. is an alcoholic but states he hasn't drank a pint of vodka in two weeks. Pt. denies any drug use at this time. Pt. denies smoking marijuana and cigarettes at this time. SW to contact pt's brother Ruben to confirm if pt. can be discharged to his home. SAADIA contacted Ruben and left him a voicemail message requesting a call back.
[2018-05-18] MEDS ORDERED: POTASSIUM CHLORIDE 20 MEQ TAB.PRT.SR PO ONE ×2 (12:00→12:30)
--- NOTE | 2018-05-18 12:41 | NUR ---
MS/RN NOTE POTASSIUM 20 MEQ DUE AT 1230 IS NOT ADMINISTERED DUE TO BEING DUPLICATE ORDER. PER DR LIN THE PATIENT TO GET TOTAL OF 40 MEQ POTASSIUM REPLACEMENT.
[2018-05-18 15:57] VITALS: BP 106/58
[2018-05-18] MEDS: BUMETANIDE (1 MG) 1 MG TABLET PO SCH (17:30)
--- NOTE | 2018-05-18 17:58 | NUR ---
MS/RN CLOSING NOTE THE PATIENT ALERT AND ORIENTED X4. DENIES PAIN AT THIS TIME. RESPIRATION REGULAR AND UNLABORED. DENIES PAIN. THE PATIENT IN ROOM AIR AND SATURATION IS AT 97%. RIGHT WRIST G 22 PATENT AND SALINE LOCKED. PATIENT HAS STABLE GAIT. VERBAL CUES ARE GIVEN TO KEEP SAFETY AWARENESS. BED LOW AND LOCKED. SIDE RAILS UP X3. CALL LIGHT WITHIN REACH. WILL ENDORSE TO SEAMSTRESS FITTER.
[2018-05-18 20:00] VITALS: BP 117/74
[2018-05-18] MEDS: SIMVASTATIN 20 MG TABLET PO SCH (21:25)
[2018-05-19 07:02] LABS: BASOPHILS # (AUTO) 0.1 /CMM (0.0-0.2); BASOPHILS % (AUTO) 0.6 % (0.0-2.0); EOSINOPHILS % (AUTO) 4.3 % (0.0-6.0); HEMATOCRIT 36 % (39-51); HEMOGLOBIN 11.8 g/dL (13.5-17.5); LYMPHOCYTES # (AUTO) 1.2 /CMM (0.8-4.8); LYMPHOCYTES % (AUTO) 13.7 % (20.0-44.0); MEAN CORPUSCULAR HGB CONC 33 g/dl (31.0-36.0); MEAN CORPUSCULAR VOLUME 89 fL (80-96); MONOCYTES # (AUTO) 1.8 /CMM (0.1-1.30); MONOCYTES % (AUTO) 20.8 % (2.0-12.0); NEUTROPHILS # (AUTO) 5.3 /CMM (1.8-8.9); NEUTROPHILS % (AUTO) 60.6 % (43.0-81.0); PLATELET COUNT (AUTO) 196 /CMM (150-450); RED BLOOD CELL COUNT(AUTO) 4.07 MIL/uL (4.5-6.0); WHITE BLOOD COUNT (AUTO) 8.7 K/uL (4.3-11.0)
[2018-05-19 07:15] LABS: CALCIUM, SERUM 8.5 mg/dL (8.5-10.1); CREATININE 1.2 mg/dL (0.6-1.3); MAGNESIUM 1.6 mg/dL (1.8-2.4); POTASSIUM 3.7 mmol/L (3.5-5.1)
[2018-05-19] MEDS: PANTOPRAZOLE 40 MG TABLET.DR PO SCH (07:44)
[2018-05-19 07:54] LABS: BAND % (MANUAL) 2 % (0.0-5.0); EOSINOPHILS % (MANUAL) 7 % (0-4); LYMPHOCYTES % (MANUAL) 15 % (16-48); MONOCYTES % (MANUAL) 13 % (0-11.0); NEUTROPHILS % (MANUAL) 63 (42-76)
[2018-05-19 08:00] VITALS: BP 122/78
--- NOTE | 2018-05-19 08:00 | NUR ---
MS/RN - Assessment Patient in bed awake, A/O X 4, denies any pain, no apparent distress seen, stable on room air. Labs reviewed, noted with low magnesium level 1.6, will notify Dr. Ortega. Fall precautions maintained. Patient updated on plan of care and in agreement. Will continue with current medical management.
[2018-05-19] MEDS: BUMETANIDE (1 MG) 1 MG TABLET PO SCH ×2 (08:36→16:27)
[2018-05-19] MEDS: AMLODIPINE BESYLATE 5 MG TABLET PO SCH (08:36)
[2018-05-19] MEDS: ASPIRIN EC 81 MG TABLET.DR PO SCH (08:36)
[2018-05-19] MEDS: CARVEDILOL 6.25 MG TABLET PO SCH ×2 (08:36→16:27)
[2018-05-19] MEDS: Magnesium 1GM/D5W 100ML PREMIX 100 ML IV SCH ×2 (09:37→10:41)
[2018-05-19 16:00] VITALS: BP 124/67
--- NOTE | 2018-05-19 17:15 | NUR ---
MS/RN - Closing notes Patient alert and oriented throughout the shift, remain afebrile, denies pain, stable on room air, replete magnesium today with total of 2 gms. All needs attended and met. Will continue with current plan of care.
--- NOTE | 2018-05-19 19:30 | NUR ---
MS RN NOTE: PATIENT RESTING IN BED, NO ACUTE DISTRESS NOTED. BREATHING EVEN AND UNLABORED, NO SOB NOTED. IV TO RIGHT WRIST IN PLACE. BED LOCKED AND IN LOWEST POSITION, CALL LIGHT IN REACH. WILL CONTINUE TO MONITOR.
[2018-05-19 19:58] VITALS: BP 110/64
[2018-05-19] MEDS: SIMVASTATIN 20 MG TABLET PO SCH (22:20)
--- NOTE | 2018-05-20 03:00 | NUR ---
MS RN NOTE: PATIENT RESTING IN BED, NO ACUTE DISTRESS NOTED. PATIENT AWAKE EATING SNACKS. BREATHING EVEN AND UNLABORED, NO SOB NOTED. BED LOCKED AND IN LOWEST POSITION, CALL LIGHT IN REACH. WILL CONTINUE TO MONITOR.
--- NOTE | 2018-05-20 06:10 | NUR ---
MS RN NOTE: PATIENT RESTING IN BED, NO ACUTE DISTRESS NOTED. BREATHING EVEN AND UNLABORED, NO SOB NOTED. IV TO RIGHT WRIST IN PLACE. BED LOCKED AND IN LOWEST POSITION, CALL LIGHT IN REACH. WILL ENDORSE TO DAY NURSE TO CONTINUE WITH PLAN OF CARE.
[2018-05-20 08:00] VITALS: BP 132/70
[2018-05-20] MEDS: ASPIRIN EC 81 MG TABLET.DR PO SCH (08:29)
[2018-05-20] MEDS: CARVEDILOL 6.25 MG TABLET PO SCH ×2 (08:29→16:08)
[2018-05-20] MEDS: BUMETANIDE (1 MG) 1 MG TABLET PO SCH ×2 (08:29→16:08)
[2018-05-20] MEDS: PANTOPRAZOLE 40 MG TABLET.DR PO SCH (08:29)
[2018-05-20] MEDS: AMLODIPINE BESYLATE 5 MG TABLET PO SCH (08:29)
[2018-05-20 10:17] LABS: CALCIUM, SERUM 8.4 mg/dL (8.5-10.1); CREATININE 1.1 mg/dL (0.6-1.3); MAGNESIUM 1.4 mg/dL (1.8-2.4)
--- NOTE | 2018-05-20 12:25 | NUR ---
SW met with pt. to get the address to where he is staying with his brother. Pt. called his nephew while SW was present. Pt's address to where he will need to be discharged to is [address] [place]. Pt. will need taxi transportation when medically cleared for discharge. SAADIA updated supportive employment case manager Shelley Whittaker with pt' discharge plan.
[2018-05-20 16:00] VITALS: BP 131/71
--- NOTE | 2018-05-20 19:00 | NUR ---
MS RN CLOSING NOTES PATIENT IS IN STABLE CONDITION. IN NO APPARENT DISTRESS. BEDSIDE RAILS ARE UPX2. BED IS LOCKED AND LOWERED. CALL LIGHT IS WITHIN REACH. IV LINE IS INTACT AND PATENT. WILL ENDORSE CARE TO CASHIERS SUPERVISOR NURSE FOR BRYSON.
[2018-05-20] MEDS: HYDROCODONE/APAP 5/325MG 1 EACH TABLET PO PRN (19:52)
[2018-05-20 20:00] VITALS: BP 108/67
[2018-05-20] MEDS: SIMVASTATIN 20 MG TABLET PO SCH (21:37)
--- NOTE | 2018-05-21 06:54 | NUR ---
MS RN NOTES AWAKE & RESPONSIVE. NOT IN ANY DISTRESS. NO SOB NOTED. DENIES ANY PAIN OR DISCOMFORT AT THIS TIME. WITH IV-HL PATENT & INTACT. MONITORED ACCORDINGLY. CALL LIGHT WITHIN REACH. BED IN LOWEST POSITION. SR UP X 2 FOR SAFETY. WILL ENDORSE TO NEXT SHIFT.
--- NOTE | 2018-05-21 07:23 | NUR ---
MS/RN Patient received Patient received from manufacturing shift supervisor. A/O X3, vital signs stable, in no distress or pain at this time. Able to ambulate with steady gait, heplock to right wrist flushing well with normal saline, no signs of infiltration seen. Call light within reach, bed in low setting, side rails X3 in upright position. Will continue to monitor and ensure safety.
[2018-05-21 08:00] VITALS: BP 127/70
[2018-05-21] MEDS: BUMETANIDE (1 MG) 1 MG TABLET PO SCH ×2 (08:05→16:40)
[2018-05-21] MEDS: ASPIRIN EC 81 MG TABLET.DR PO SCH (08:05)
[2018-05-21] MEDS: PANTOPRAZOLE 40 MG TABLET.DR PO SCH (08:06)
[2018-05-21] MEDS: CARVEDILOL 6.25 MG TABLET PO SCH ×2 (08:06→16:40)
[2018-05-21] MEDS: AMLODIPINE BESYLATE 5 MG TABLET PO SCH (08:11)
--- NOTE | 2018-05-21 13:46 | NUR ---
MS/RN S/B Epic IRONWORKER WIRE FENCE ERECTOR Seen by IRONWORKER WIRE FENCE ERECTOR - patient to be discharged today to brother's home. Prescription wrote.
[2018-05-21 16:00] VITALS: BP 109/69
--- NOTE | 2018-05-21 16:11 | NUR ---
MS/RN Exit care Exit care prepared, chart copied. Patient to be discharged to home after dinner.
[2018-05-21 16:40] VITALS: BP 100/58
--- NOTE | 2018-05-21 18:15 | NUR ---
MS/ring making machine operator Patient discharged to home in stable condition. All personal belongings signed for on belongings list. Heplock and name bands removed. Educated patient as to the importance of getting prescription filled as soon as possible and taking all medications as ordered. Also made aware of the need to make follow up appointment with primary care doctor. Patient stated understanding of all of the above. Escorted to main lobby by RN, taxi voucher provided.
== END 2018-05-21 18:15 | disposition home or self-care (01) | DRG 469 ==
LOC: ER 01:02 → TELE 03:26 → MED 05-16 15:46 → MEDSG2 05-19 11:22
PROVIDERS: ADMIT Internal Medicine; ATTEND Nurse Practitioner Acute Care
DX: N17.0 Acute kidney failure with tubular necrosis (principal); I21.A1 Myocardial infarction type 2; I50.23 Acute on chronic systolic (congestive) heart failure; J18.9 Pneumonia, unspecified organism; I27.20 Pulmonary hypertension, unspecified; E44.1 Mild protein-calorie malnutrition; E83.42 Hypomagnesemia; I13.0 Hypertensive heart and chronic kidney disease with heart failure and stage 1 through stage 4 chronic kidney disease, or unspecified chronic kidney disease; I42.9 Cardiomyopathy, unspecified; I11.0 Hypertensive heart disease with heart failure; N18.9 Chronic kidney disease, unspecified; I16.0 Hypertensive urgency; D64.9 Anemia, unspecified; E78.5 Hyperlipidemia, unspecified; E87.6 Hypokalemia; F10.10 Alcohol abuse, uncomplicated; F17.200 Nicotine dependence, unspecified, uncomplicated; I25.2 Old myocardial infarction; I34.0 Nonrheumatic mitral (valve) insufficiency; K21.9 Gastro-esophageal reflux disease without esophagitis; Z59.0 Homelessness; Z91.14 Patient's other noncompliance with medication regimen; Z79.899 Other long term (current) drug therapy; Z79.82 Long term (current) use of aspirin; Z91.19 Patient's noncompliance with other medical treatment and regimen
CPT/HCPCS: 36415; 71045-TC; 80048-TC; 80053-TC; 80076-TC; 83735-TC; 83880; 84100-TC; 84484-TC; 85025-TC; 85730-TC; 87081-TC; G0378; J3475; J3490; J7030

== ENCOUNTER 2019-06-05 11:20 | Inpatient (IN) | payer OTHER ==
[~2019-06-05] VITALS: Ht 188 cm; Wt 74.8 kg
[~2019-06-05 11:20] MED LIST changes: -BUME2TAB3 PO; +BUME2TAB7 PO; +SIMV-46 PO; -SIMV20TA6 PO
--- NOTE | 2019-06-05 11:40 | NUR ---
L sided chest pain with sob x 2 days. Patient a/ox4, breathing even and unlabore, no sob noted, needs attended, changed into gown, attached to the cardiac tech. Kept comfortable.
[2019-06-05 12:12] LABS: BASOPHILS # (AUTO) 0.1 /CMM (0.0-0.2); BASOPHILS % (AUTO) 0.7 % (0.0-2.0); HEMATOCRIT 38 % (39-51); HEMOGLOBIN 12.7 g/dL (13.5-17.5); LYMPHOCYTES # (AUTO) 1.4 /CMM (0.8-4.8); LYMPHOCYTES % (AUTO) 18.4 % (20.0-44.0); MEAN CORPUSCULAR HGB CONC 34 g/dl (31.0-36.0); MEAN CORPUSCULAR VOLUME 95 fL (80-96); NEUTROPHILS % (AUTO) 65.9 % (43.0-81.0); PLATELET COUNT (AUTO) 202 /CMM (150-450); RED BLOOD CELL COUNT(AUTO) 3.99 MIL/uL (4.5-6.0); WHITE BLOOD COUNT (AUTO) 7.6 K/uL (4.3-11.0)
[2019-06-05] MEDS ORDERED: BUME2TAB7 PO (12:16)
[2019-06-05] MEDS ORDERED: SIMV-49 PO (12:16)
[2019-06-05] MEDS ORDERED: MULT1TAB69 PO (12:16)
[2019-06-05] MEDS ORDERED: LISI10TA5 PO (12:16)
[2019-06-05] MEDS ORDERED: DOCU-141 PO (12:16)
[2019-06-05 12:21] LABS: CREATININE 1.4 mg/dL (0.6-1.3); POTASSIUM 4.3 mmol/L (3.5-5.1)
--- NOTE | 2019-06-05 12:55 | NUR ---
GAVE MOVESHEET TO ADMITTING FOR INSURANCE AUTH
[2019-06-05] MEDS ORDERED: ASPIRIN EC 325 MG TABLET.DR PO ONE (12:57)
[2019-06-05] MEDS ORDERED: ASPIRIN 81 MG TAB.CHEW ONE (12:58)
[2019-06-05] MEDS ORDERED: ASPIRIN 81 MG TAB.CHEW PO ONE (13:00)
--- NOTE | 2019-06-05 13:21 | NUR ---
patient assisted to restroom via wheelchair.
--- NOTE | 2019-06-05 14:53 | NUR ---
REPORT GIVEN TO DAVID MERINO FOR BRYSON.
--- NOTE | 2019-06-05 14:55 | NUR ---
PAGED PRESSER COTTON GINNING WET END HELPER DR MAKI
--- NOTE | 2019-06-05 15:17 | NUR ---
PATIENT ENDORSED TO DAVID MERINO, TRANSFERRED TO ROOM 310-2 VIA ACLS PROTOCOL. NO DISTRESS NOTED.
--- NOTE | 2019-06-05 15:30 | NUR ---
MS/SOCIAL SERVICES DESIGNEE NOTE Received report from Laurent MERINO in the ER. Patient arrived via gurney and ambulated to bed. Vital signs 151/100, HR 105, RR 20, T 97.8, 100, tele monitor Sinus Tachycardia. Patient refused skin assessment. IV line is clean and intact on the right hand #20g s/l. Admitting MD has met the patient and awaiting admitting orders. Bed is in lowest position, side rails x2 in upright position, call light is within reach and patient is aware of how to call for assistance when needed. Will continue with admission process and continuity of care.
[2019-06-05 16:00] VITALS: BP 150/100
[2019-06-05] MEDS ORDERED: DOCUSATE SODIUM 100 MG CAPSULE PO PRN (16:00)
[2019-06-05] MEDS ORDERED: Z GUARD REMEDY 2 OZ OINT TP PRN (16:00)
[2019-06-05] MEDS ORDERED: MAGNESIUM HYDROXIDE 30 ML UDC PO PRN (16:00)
[2019-06-05] MEDS ORDERED: HYDROCODONE/APAP 5/325MG 1 EACH TABLET PO PRN (16:00)
[2019-06-05] MEDS ORDERED: ONDANSETRON HCL/PF 4 MG/2 ML VIAL IVP PRN (16:00)
[2019-06-05] MEDS ORDERED: ZOLPIDEM TARTRATE 5 MG TABLET PO PRN (16:00)
[2019-06-05] MEDS ORDERED: MORPHINE SULFATE INJ 2 MG/ML DISP.SYRIN IV PRN (16:00)
[2019-06-05] MEDS ORDERED: MAG HYDROX/AL HYDROX/SIMETH 30 ML UDC PO PRN (16:00)
[2019-06-05] MEDS ORDERED: ACETAMINOPHEN 325 MG TABLET PO PRN (16:00)
[2019-06-05 16:25] VITALS: BP 146/99
[2019-06-05] MEDS: BUMETANIDE (1 MG) 1 MG TABLET PO SCH (16:47)
[2019-06-05] MEDS: CARVEDILOL 6.25 MG TABLET PO SCH (16:47)
--- NOTE | 2019-06-05 18:46 | NUR ---
TELE/RN CLOSING NOTE Patient is resting in bed, A/O x4, anxious at times, breathing is even and unlabored, saturating 100% on RA. Tele monitor Sinus Tachycardia late 90s-100s. Patient has urinal at the bedside, no bowel movement this shift. Intake 800ml and output 200ml during my shift. All patient needs met, all due meds given. Bed is in lowest position, side rails x2 in upright position, call light is within reach and patient is aware of how to call for assistance when needed. Safety precautions in place. Will endorse to school psychologist assistant. Addendum: 06/05/19 at 1855 by GABBY HERNÁNDEZ RN additional 300ml urine out at this moment
--- NOTE | 2019-06-05 19:40 | NUR ---
ENGRAVER PANTOGRAPH NOTES RECEIVED ON BED SLEEPING,AROUSABLE TO VERBAL STIMULI,BREATHING NON LABORED.,O2 SAT 97% ON ROOM AIR. ON TELE MONITOR RATE OF 95.WITH SALINE LOCK RIGHT HAND INTACT AND PATENT.CALL LIGHT IN REACH,NEEDS ANTICIPATED.
[2019-06-05 20:00] VITALS: BP 116/87
[2019-06-05] MEDS ORDERED: SIMVASTATIN 20 MG TABLET PO SCH (22:00)
[2019-06-06] VITALS: BP 136/92
[2019-06-06 01:31] VITALS: BP 136/92
--- NOTE | 2019-06-06 01:38 | NUR ---
IMPREGNATOR HELPER NOTES AWAKE,MOANS,SAYS CHEST PAIN 9/10,MEDICATED WITH MORPHINE 4MG IV ORDERED,BP 136/92.PULSE-96
--- NOTE | 2019-06-06 03:22 | NUR ---
FIRE SYSTEMS INSPECTOR NOTES C/O NAUSEA,ZOFRAN 4MG IV GIVEN ORDERED
[2019-06-06 04:00] VITALS: BP 137/84
--- NOTE | 2019-06-06 06:32 | NUR ---
CHEMICAL PROCESS OPERATOR NOTES LAYING ON BED,NAUSEA IMPROVED,NO EPISODE OF SOB NOTED.IN NO ACUTE DISTRESS.CALL LIGHT IN REACH,NEEDS ATTENDED.WILL ENDORSE TO CHARLOTTE MERINO FOR BRYSON.
[2019-06-06 07:26] LABS: BASOPHILS # (AUTO) 0.1 /CMM (0.0-0.2); BASOPHILS % (AUTO) 0.8 % (0.0-2.0); EOSINOPHILS % (AUTO) 3.2 % (0.0-6.0); HEMATOCRIT 37 % (39-51); HEMOGLOBIN 12.5 g/dL (13.5-17.5); LYMPHOCYTES # (AUTO) 1.8 /CMM (0.8-4.8); LYMPHOCYTES % (AUTO) 27.4 % (20.0-44.0); MEAN CORPUSCULAR HGB CONC 34 g/dl (31.0-36.0); MEAN CORPUSCULAR VOLUME 95 fL (80-96); MONOCYTES # (AUTO) 0.9 /CMM (0.1-1.30); MONOCYTES % (AUTO) 13.3 % (2.0-12.0); NEUTROPHILS # (AUTO) 3.6 /CMM (1.8-8.9); NEUTROPHILS % (AUTO) 55.3 % (43.0-81.0); PLATELET COUNT (AUTO) 163 /CMM (150-450); RED BLOOD CELL COUNT(AUTO) 3.88 MIL/uL (4.5-6.0); WHITE BLOOD COUNT (AUTO) 6.5 K/uL (4.3-11.0)
--- NOTE | 2019-06-06 07:42 | NUR ---
COLLAR STARCHER OPENING NOTE PATIENT IN BED RESTING COMFORTABLY. PATIENT IN NO ACUTE DISTRESS. NO SOB NOTED. PATIENT BREATHING IS EVEN AND UNLABORED. PATIENT ON CARDIAC MONITORING READING SINUS RHYTHM HR 95. SAFETY PRECAUTIONS IN PLACE. PATIENT BED IS LOCKED AND IN LOWEST POSITION. CALL LIGHT WITHIN REACH. WILL CONTINUE TO MONITOR.
[2019-06-06 08:00] VITALS: BP 129/95
[2019-06-06 08:16] VITALS: BP 129/95
[2019-06-06] MEDS: BUMETANIDE (1 MG) 1 MG TABLET PO SCH (08:16)
[2019-06-06] MEDS: CARVEDILOL 6.25 MG TABLET PO SCH (08:16)
[2019-06-06 08:21] LABS: CALCIUM, SERUM 8.9 mg/dL (8.5-10.1); CREATININE 1.5 mg/dL (0.6-1.3); MAGNESIUM 1.5 mg/dL (1.8-2.4); PHOSPHORUS 3.7 mg/dL (2.5-4.9); POTASSIUM 4.2 mmol/L (3.5-5.1)
[2019-06-06] MEDS ORDERED: MULTIVITAMINS,THERAGRAN 1 UDTAB TABLET PO SCH (09:00)
[2019-06-06] MEDS ORDERED: LOSARTAN POTASSIUM 50 MG TABLET PO SCH (09:00)
[2019-06-06] MEDS ORDERED: ASPIRIN 81 MG TAB.CHEW PO SCH (09:00)
[2019-06-06] MEDS ORDERED: MGSO4/D5W 100 ML IV SCH (14:30)
--- NOTE | 2019-06-06 15:17 | NUR ---
PRELIMINARY RESULTS OF ECHOCARDIOGRAM SHOWED EF 15-20%~ WITH MODERATE PULM HTN 53mmHg. ADVISED ATTENDING RN OF INITIAL FINDINGS.
--- NOTE | 2019-06-06 17:11 | NUR ---
MS WASTEWATER TREATMENT PLANT OPERATOR NOTE PATIENT MEDICALLY CLEARED FOR DISCHARGE. PATIENT IN NO ACUTE DISTRESS. NO SOB NOTED. PATIENT BREATHING IS EVEN AND UNLABORED. PATIENT VITAL SIGNS WNL. PATIENT IV REMOVED. ID BAND REMOVED. PATIENT DC INSTRUCTIONS PROVIDED. PATIENT VERBALIZED UNDERSTANDING. PATIENT SIGNED BELONGINGS LIST AND HAS BELONGINGS WITH HIM. PATIENT REFUSED SKIN ASSESSMENT. EDUCATED RISK VS BENEFITS. PATIENT CONTINUED TO REFUSE SKIN ASSESSMENT. PATIENT KEPT CLEAN DRY AND COMFORTABLE THROUGHOUT SHIFT. PATIENT IS HOMELESS WITH HOMELESS WAIVER FORM SIGNED. PATIENT AGREES TO GO BACK TO [facility] [address]. RESOURCES OFFERED FOR PLACEMENTS. PATIENT REFUSED RESOURCES AND SPOKE WITH BUSINESS DEVELOPMENT SPECIALIST MARICARMEN. PATIENT TO GO BACK TO [facility] BY [facility]. FOOD PROVIDED TO PATIENT. NEEDS AND CONCERNS ADDRESSED. MD AWARE OF DISCHARGE.
[2019-06-07] MEDS ORDERED: BUMETANIDE (1 MG) 1 MG TABLET PO SCH (09:00)
== END 2019-06-06 17:08 | disposition home or self-care (01) | DRG 190 ==
LOC: ER 11:20 → TELE 14:29 → MED 06-06 09:38
PROVIDERS: ADMIT Nurse Practitioner Acute Care; ATTEND Nurse Practitioner Acute Care
DX: I21.4 Non-ST elevation (NSTEMI) myocardial infarction (principal); N17.0 Acute kidney failure with tubular necrosis; I27.20 Pulmonary hypertension, unspecified; I13.0 Hypertensive heart and chronic kidney disease with heart failure and stage 1 through stage 4 chronic kidney disease, or unspecified chronic kidney disease; N18.9 Chronic kidney disease, unspecified; I25.5 Ischemic cardiomyopathy; F15.10 Other stimulant abuse, uncomplicated; I25.10 Atherosclerotic heart disease of native coronary artery without angina pectoris; I34.0 Nonrheumatic mitral (valve) insufficiency; D63.8 Anemia in other chronic diseases classified elsewhere; Z86.19 Personal history of other infectious and parasitic diseases; F17.210 Nicotine dependence, cigarettes, uncomplicated; Z91.19 Patient's noncompliance with other medical treatment and regimen; Z59.0 Homelessness; K21.9 Gastro-esophageal reflux disease without esophagitis; I25.2 Old myocardial infarction; E78.5 Hyperlipidemia, unspecified; I50.32 Chronic diastolic (congestive) heart failure
CPT/HCPCS: 36415; 70450-TC; 71045-TC; 80048-TC; 80061-TC; 80305; 82962-TC; 83735-TC; 83880; 84100-TC; 84484-TC; 85025-TC; 85730-TC; 87081-TC; 93307-TC; G0378; G0480; J2270; J2405; J3475